=== PATIENT | female | born 1960 | race Caucasian/White ===

== ENCOUNTER 2016-09-20 09:34 | Inpatient (IN) | payer MEDICARE, BC ==
[2016-09-20] VITALS (31 sets, daily range): BP systolic 68–168; BP diastolic 50–94; PULSE 81–121; RESP 12–37; TEMP 98–99.6; O2SAT 95–100
[~2016-09-20 09:34] MED LIST: ALBU8I INH; AMLO10 PO; LEVE500 PO; METO25 PO; MORP30SU PO; OMEP20TA39 PO
[2016-09-20] MEDS ORDERED: ETOMIDATE 20 MG/10 ML VIAL ONE (09:39)
[2016-09-20] MEDS ORDERED: SUCCINYLCHOLINE CHLORIDE 200 MG/10 ML VIAL ONE (09:40)
[2016-09-20] MEDS ORDERED: SODIUM CHLOR 0.9% 1000 ML INJ 1,000 ML IV ONE ×2 (09:48→11:15)
[2016-09-20] MEDS ORDERED: PROPOFOL 1000 MG/100 ML INJ 100 ML ONE (09:51)
--- NOTE | 2016-09-20 09:59 | PD ---
HPI Chief Complaint: Respiratory Symptoms Time Seen by Provider: 09:47 Travel History International Travel<30 days: No Contact w/Intl Traveler<30days: No Traveled to known affect area: No History of Present Illness HPI PER EMS FAMILY CALLED 911 THIS MORNING BECAUSE SHE WOKE UP WITH LEFT SIDED NUMBNESS?, EN ROUTE EMS WITNESSED PATIENT TO HAVE A TOTAL OF 3 TONIC CLONIC SEIZURES, ATIVAN 1MGX2 AND UPON ARRIVAL PATIENT WAS BEING VENT ASSISTED WITH BVM BY EMS, NOT IMPROVING ON HER OWN DESPITE AT LEAST 20MINUTES TIME PASSING BY [facility] Past Medical History Medical History: Unable to Obtain Hx Anticoagulant Therapy: No Cardiovascular Problems: Yes (murmur) Chemotherapy: No Cerebrovascular Accident: Yes Diabetes: No Respiratory: No Influenza Vaccination: No (uto) Past Surgical History Surgical History: Unable to Obtain Hysterectomy: No Other Surgery: Yes (blood clot leg) Social History Alcohol Use: Yes (6 pk beer daily) Tobacco Use: Yes (1 ppd) Substance Use: No (hx of with similar symptoms per evac today 09/20/16) Allergies-Medications (Allergen,Severity, Reaction): Coded Allergies: No Known Allergies (Unverified , 08/11/15) Reported Meds & Prescriptions Reported Meds & Active Scripts Active Reported Morphine ER (Morphine Sulfate) 30 Mg Tab 30 Mg PO Q8H Metoprolol Tartrate 25 Mg Tab 25 Mg PO DAILY Omeprazole 20 Mg Tab 20 Mg PO DAILY Amlodipine (Amlodipine Besylate) 10 Mg Tab 10 Mg PO DAILY Levetiracetam 1,000 Mg Tab 1,000 Mg PO BID Atorvastatin (Atorvastatin Calcium) 20 Mg Tab 20 Mg PO HS Review of Systems ROS Limitations: Clinical Condition Except as stated in HPI: all other systems reviewed are Neg Physical Exam Narrative GENERAL: SKIN: Warm and dry. HEAD: Atraumatic. Normocephalic. EYES: Pupils equal and round. No scleral icterus. No injection or drainage. ENT: No nasal bleeding or discharge. Mucous membranes pink and moist. NECK: Trachea midline. No JVD. CARDIOVASCULAR: Regular rate and rhythm. RESPIRATORY: No accessory muscle use. Clear to auscultation. Breath sounds equal bilaterally. BUT VENT RATE AROUND 6-8/MIN, GASTROINTESTINAL: Abdomen soft, non-tender, nondistended. MUSCULOSKELETAL: Extremities without clubbing, cyanosis, or edema. No obvious deformities. NEUROLOGICAL: PATIENT WAS POSTICTAL AND UNABLE TO FOLLOW COMMANDS, HOWEVER NOTED TO WITHDRAW TO PAIN BILATERALLY UE/LE Data Data Last Documented VS Vital Signs Date Time Temp Pulse Resp B/P Pulse Ox O2 Delivery O2 Flow Rate FiO2 09/20/16 11:07 91 85/57 100 Ventilator 09/20/16 10:56 100 09/20/16 10:52 18 09/20/16 10:00 98.0 Orders Etomidate Inj (Amidate Inj) (09/20/16 09:39) Succinylcholine Inj (Quelicin Inj) (09/20/16 09:40) Propofol 1000 Mg/100 Ml Inj (Diprivan 10 (09/20/16 09:51) Ecg Monitoring (09/20/16 09:48) Iv Access Insert/Monitor (09/20/16 09:48) Ng Gastric Tube Insert/Monitor (09/20/16 09:48) Urinary Catheter Insert/Apply (09/20/16 09:48) Oximetry (09/20/16 09:48) Oxygen Administration (09/20/16 09:48) Etomidate Inj (Amidate Inj) (09/20/16 10:00) Succinylcholine Inj (Quelicin Inj) (09/20/16 10:00) Sodium Chloride 0.9% Flush (Ns Flush) (09/20/16 10:00) Sodium Chlor 0.9% 1000 Ml Inj (Ns 1000 M (09/20/16 09:48) Midazolam Inj (Versed Inj) (09/20/16 10:00) Complete Blood Count With Diff (09/20/16 09:48) Alcohol (Ethanol) (09/20/16 09:48) Drug Screen, Random Urine (09/20/16 09:48) Electrocardiogram (09/20/16 ) Ct Brain W/O Iv Contrast(Rout) (09/20/16 ) Comprehensive Metabolic Panel (09/20/16 09:48) Phenytoin Inj (Dilantin Inj) (09/20/16 10:00) Urinalysis - C+S If Indicated (09/20/16 09:48) Osmolality,Serum (09/20/16 09:48) Salicylates (Aspirin) (09/20/16 09:48) Tylenol (Acetaminophen) (09/20/16 09:48) Chest, Single Ap (09/20/16 09:56) Urine Culture (09/20/16 09:50) Arterial Blood Gas (Abg) (09/20/16 10:18) Levetiracetam (09/20/16 10:44) Atropine Inj (Atropine Inj) (09/20/16 11:00) Sodium Chlor 0.9% 1000 Ml Inj (Ns 1000 M (09/20/16 11:15) Admit Order (Ed Use Only) (09/20/16 11:04) Labs Laboratory Tests Test 09/20/16 09/20/16 09:50 10:18 White Blood Count 13.6 TH/MM3 Red Blood Count 4.68 MIL/MM3 Hemoglobin 14.3 GM/DL Hematocrit 42.4 % Mean Corpuscular Volume 90.6 FL Mean Corpuscular Hemoglobin 30.5 PG Mean Corpuscular Hemoglobin 33.6 % Concent Red Cell Distribution Width 15.1 % Platelet Count 315 TH/MM3 Mean Platelet Volume 7.3 FL Neutrophils (%) (Auto) 56.3 % Lymphocytes (%) (Auto) 34.5 % Monocytes (%) (Auto) 8.1 % Eosinophils (%) (Auto) 0.6 % Basophils (%) (Auto) 0.5 % Neutrophils # (Auto) 7.7 TH/MM3 Lymphocytes # (Auto) 4.7 TH/MM3 Monocytes # (Auto) 1.1 TH/MM3 Eosinophils # (Auto) 0.1 TH/MM3 Basophils # (Auto) 0.1 TH/MM3 CBC Comment DIFF FINAL Differential Comment Urine Color YELLOW Urine Turbidity CLEAR Urine pH 5.5 Urine Specific [place] 1.015 Urine Protein 30 mg/dL Urine Glucose (UA) 300 mg/dL Urine Ketones TRACE mg/dL Urine Occult Blood SMALL Urine Nitrite NEG Urine Bilirubin NEG Urine Urobilinogen LESS THAN 2.0 MG/DL Urine Leukocyte Esterase NEG Urine RBC 1 /hpf Urine WBC LESS THAN 1 /hpf Urine Squamous Epithelial 1 /hpf Cells Urine Bacteria RARE /hpf Microscopic Urinalysis Comment CATH-CULTURE IND Sodium Level 134 MEQ/L Potassium Level 4.1 MEQ/L Chloride Level 98 MEQ/L Carbon Dioxide Level 23.3 MEQ/L Anion Gap 13 MEQ/L Blood Urea Nitrogen 9 MG/DL Creatinine 0.94 MG/DL Estimat Glomerular Filtration 61 ML/MIN Rate Random Glucose 231 MG/DL Serum Osmolality 321 MOSM/KG Calcium Level 8.5 MG/DL Total Bilirubin 0.3 MG/DL Aspartate Amino Transf 38 U/L (AST/SGOT) Alanine Aminotransferase 22 U/L (ALT/SGPT) Alkaline Phosphatase 107 U/L Total Protein 8.2 GM/DL Albumin 4.0 GM/DL Salicylates Level 4.2 MG/DL Urine Opiates Screen POS Acetaminophen Level LESS THAN 2.0 MCG/ML Urine Barbiturates Screen NEG Urine Amphetamines Screen NEG Urine Benzodiazepines Screen NEG Urine Cocaine Screen NEG Urine Cannabinoids Screen POS Ethyl Alcohol Level LESS THAN 3 MG/DL Blood Gas Puncture Site RT BRACHIAL Blood Gas Patient Temperature 98.6 Blood Gas HCO3 24 mmol/L Blood Gas Base Excess -2.2 mmol/L Blood Gas Oxygen Saturation 92 % Arterial Blood pH 7.26 Arterial Blood Partial 55 mmHg Pressure CO2 Arterial Blood Partial 135 mmHG Pressure O2 Arterial Blood Oxygen Content 17.2 Vol % Arterial Blood 5.6 % Carboxyhemoglobin Arterial Blood Methemoglobin 1.0 % Blood Gas Hemoglobin 13.1 G/DL Oxygen Delivery Device VENTILATOR Blood Gas Ventilator Setting AC 14/500/+5 Blood Gas Inspired Oxygen 50 % MDM Medical Decision Making Medical Screen Exam Complete: Yes Emergency Medical Condition: Yes Medical Record Reviewed: Yes Interpretation(s) MY EKG INTERP: SINUS RHYTHM, NONSPEC STT CHANGES, ST DEPRESSIONS NOTED INFERIOLATERALLY MY ABG INTERP: RESPIRATORY ACIDOSIS, POST INTUBATION WILL INCREASE RATE FRROM 12 TO 18 ALTHOUGH IT IS VERY LIKELY DUE TO PRE INTUBATION VENTILATORY FAILURE NOTED CLINICALLY. OXYGENATION IS DOING WELL WILL LOWER PAO2 TO 40% Differential Diagnosis ICH V STATUS EPILEPTICUS V ELECTROLYTE ABNL V INFECTIOUS SOURCE Narrative Course PATIENT NOTED TO BE VENTILATORY FAILURE, SO INTUBATED ON ARRIVAL (PATIENT CLENCHING JAW SO ETOMIDATE AND SUX USED..SEE PROC NOTE) Critical Care Narrative CRITICAL CARE NOTE: With evaluation of the patient, labs, EKG, receipt of radiologic studies, administration of medications, reevaluation the patient and discussion of the patient with the admitting physicians, the total critical care time was [60] minutes. Time to perform other separately billable procedures was not included in the critical care time. Procedures Procedure Narrative After the risks and benefits were discussed the following procedure was performed: INTUBATION: The patient was put in optimal position for the procedure. Rapid sequence intubation was initiated by me using [20] milligrams of etomidate IV and [100] milligrams of [SUCCYNILCHOLINE] IV. The patient was intubated with a [7.5] cuffed endotracheal tube. Tube placement was confirmed by visualization of the tube and balloon passing through the cords, capnometry and subsequent chest x-ray. Breath sounds were equal and well aerated bilaterally postintubation. No breath sounds over stomach. Patient tolerated procedure well. SECURED AT 22 AT THE LIP Diagnosis Primary Impression: ACUTE STATUS EPILEPTICUS Additional Impression: ACUTE VENTILATORY FAILURE S/P INTUBATION Admitting Information Admitting Physician Requests: Admit Eliu Waldrop MD Sep 20, 2016 09:59
[2016-09-20] MEDS ORDERED: SUCCINYLCHOLINE CHLORIDE 200 MG/10 ML VIAL IVP ONE (10:00)
[2016-09-20] MEDS ORDERED: ETOMIDATE 20 MG/10 ML VIAL IVP ONE (10:00)
[2016-09-20] MEDS ORDERED: SODIUM CHLORIDE 0.9% FLUSH 10 ML FLUSH IVF PRN (10:00)
[2016-09-20] MEDS ORDERED: MIDAZOLAM HCL 5 MG/ML VIAL (1 ML) IVP ONE (10:00)
[2016-09-20] MEDS ORDERED: PHENYTOIN INJ 1,000 MG in SODIUM CHLORIDE 0.9% INJ 100 ML IV ONE (10:00)
[2016-09-20 10:14] LABS: AUTOMATED NEUTROPHIL # 7.7 TH/MM3 (1.8-7.7); BASOPHIL # 0.1 TH/MM3 (0-0.2); BASOPHIL % 0.5 % (0.0-2.0); EOSINOPHIL # 0.1 TH/MM3 (0-0.4); EOSINOPHIL % 0.6 % (0.0-4.0); HEMATOCRIT 42.4 % (35.0-46.0); HEMO FLAGS DIFF FINAL; LYMPH % 34.5 % (9.0-44.0); LYMPHOCYTE # 4.7 TH/MM3 (1.0-4.8); MEAN CELL VOLUME 90.6 FL (80.0-100.0); MEAN CORPUSCULAR HEMOGLOBIN 30.5 PG (27.0-34.0); MEAN CORPUSCULAR HGB CONC 33.6 % (32.0-36.0); MONO % 8.1 % (0.0-8.0); NEUT % 56.3 % (16.0-70.0); PLATELET COUNT 315 TH/MM3 (150-450); RED BLOOD COUNT 4.68 MIL/MM3 (4.00-5.30); RED CELL DISTRIBUTION WIDTH 15.1 % (11.6-17.2); WHITE BLOOD COUNT 13.6 TH/MM3 (4.0-11.0)
[2016-09-20 10:19] LABS: BACTERIA, URINE RARE /hpf; BLOOD, URINE SMALL (NEG); COMMENT (UR) CATH-CULTURE IND; CULTURE IF INDICATED CATH CULTURE IND; GLUCOSE,URINE 300 mg/dL (NEG); KETONE, URINE TRACE mg/dL (NEG); NITRITE,URINE NEG (NEG); PH, URINE 5.5 (5.0-8.5); SQUAMOUS EPITHELIAL CELL URINE 1 /hpf (0-5); URINE COLOR YELLOW (YELLW/STRAW)
[2016-09-20 10:24] LABS: AMPHETAMINE, URINE NEG (NEG); BARBITURATES, URINE NEG (NEG); COCAINE, URINE NEG (NEG)
[2016-09-20 10:25] LABS: ALT (GPT) 22 U/L (10-53); ANION GAP 13 MEQ/L (5-15); AST (GOT) 38 U/L (15-37); BICARBONATE 23.3 MEQ/L (21.0-32.0); BLOOD UREA NITROGEN 9 MG/DL (7-18); CHLORIDE 98 MEQ/L (98-107); GLOMERULAR FILTRATION RATE 61 ML/MIN (>89); POTASSIUM 4.1 MEQ/L (3.5-5.1); SODIUM (NA) 134 MEQ/L (136-145)
[2016-09-20 10:26] LABS: BLOOD GAS BASE EXCESS -2.2 mmol/L (-2-2); BLOOD GAS CARBOXYHEMOGLOBIN 5.6 % (0-4); BLOOD GAS HCO3 24 mmol/L (22-26); BLOOD GAS O2 HGB SATURATION 92 % (90-100); BLOOD GAS OXYGEN CONTENT 17.2 Vol % (12.0-20.0); BLOOD GAS PCO2 55 mmHg (38-42); BLOOD GAS PO2 135 mmHG (61-120); BLOOD GAS TOTAL HGB 13.1 G/DL (12.0-16.0); TEMP CORR TO 98.6
--- NOTE | 2016-09-20 10:26 | RADRPT ---
EXAM DATE/TIME: 09/20/2016 10:02 [facility] COMPARISON: CHEST SINGLE AP, July 26, 2015, 6:54. INDICATIONS : Post ET and OG tube placement MEDICAL HISTORY : None. SURGICAL HISTORY : None. ENCOUNTER: Initial ACUITY: 1 day PAIN SCORE: Non-responsive. LOCATION: Bilateral chest FINDINGS: The ET tube and nasogastric tube are in good position. Lungs are clear. The heart and pulmonary vasc ularity are normal. The portion of the bony skeleton visualized is unremarkable. CONCLUSION: Support apparatus in good position. Lungs are clear. Car Moseley MD FACR on September 20, 2016 at 10:24 Board Certified Radiologist. This report was verified electronically.
[2016-09-20 10:27] LABS: CRITICAL VALUE YES; DRAW SITE RT BRACHIAL; FIO2 50 %; NUMBER OF ARTERIAL PUNCTURES 1; OXYGEN DEVICE VENTILATOR; STAT YES; ULNAR PULSE PRESENT; VENT SETTINGS AC 14/500/+5
[2016-09-20 10:27] LABS: ALKALINE PHOSPHATASE 107 U/L (45-117); TOTAL BILIRUBIN ADULT 0.3 MG/DL (0.2-1.0)
[2016-09-20 10:31] LABS: ACETAMINOPHEN LESS THAN 2.0 MCG/ML (10.0-30.0)
--- NOTE | 2016-09-20 10:57 | RADRPT ---
EXAM DATE/TIME: 09/20/2016 10:38 [facility] COMPARISON: MRI BRAIN W & W/O CONTRAST, July 26, 2015, 16:16. CT BRAIN W/O CONTRAST, July 26, 2015, 6:34. INDICATIONS : Multiple sezures today RADIATION DOSE: 56.35 CTDIvol (mGy) MEDICAL HISTORY : Seizures. Substanse abuse SURGICAL HISTORY : None. ENCOUNTER: Initial ACUITY: 1 day PAIN SCALE: Non-responsive LOCATION: cranial TECHNIQUE: Multiple contiguous axial images were obtained of the head. Using automated exposure control and adj ustment of the mA and/or kV according to patient size, radiation dose was kept as low as reasonably a chievable to obtain optimal diagnostic quality images. DICOM format image data is available electro nically for review and comparison. FINDINGS: CEREBRUM: The ventricles are normal for age. No evidence of midline shift, mass lesion, hemorrhage or acute in farction. No extra-axial fluid collections are seen. POSTERIOR FOSSA: The cerebellum and brainstem are intact. The 4th ventricle is midline. The cerebellopontine angle i s unremarkable. EXTRACRANIAL: The visualized portion of the orbits is intact. SKULL: The calvaria is intact. No evidence of skull fracture. CONCLUSION: Negative for an acute process. Car Moseley MD FACR on September 20, 2016 at 10:54 Board Certified Radiologist. This report was verified electronically.
[2016-09-20] MEDS ORDERED: ATROPINE SULFATE 1 MG/ML VIAL IV PUSH ONE (11:00)
[2016-09-20] MEDS ORDERED: OMEP20TA PO (11:37)
[2016-09-20] MEDS ORDERED: MORP1TAB25 PO (11:37)
[2016-09-20] MEDS ORDERED: ATOR20TA15 PO (11:37)
[2016-09-20] MEDS ORDERED: LEVE10003 PO (11:37)
[2016-09-20] MEDS ORDERED: METO25TA3 PO (11:37)
[2016-09-20] MEDS ORDERED: AMLO10TA2 PO (11:37)
[2016-09-20] MEDS ORDERED: BISACODYL 10 MG SUPP RECTAL PRN (12:15)
[2016-09-20] MEDS ORDERED: CHLORHEXIDINE GLUCONATE 2 % 1 PACK (2 CLOTHS) TOP PRN (12:15)
[2016-09-20] MEDS ORDERED: LACTULOSE SYRUP 20 GM/30 ML CUP PO PRN (12:15)
[2016-09-20] MEDS ORDERED: RESP: ALBUTEROL 2.5 MG/IPRATROPIUM 0.5 MG NEB (PRN) INH (12:15)
[2016-09-20] MEDS ORDERED: ONDANSETRON HCL 4 MG/2 ML VIAL IV PRN (12:15)
[2016-09-20] MEDS ORDERED: MAGNESIUM HYDROXIDE SUSP 30 ML CUP PO PRN (12:15)
[2016-09-20] MEDS ORDERED: MISCELLANEOUS NURSING INFORMATION XX SCH (12:15)
[2016-09-20] MEDS ORDERED: SENNOSIDES 8.6 MG TAB PO PRN (12:15)
[2016-09-20] MEDS ORDERED: CHLORHEXIDINE GLUCONATE 2 % 1 PACK (2 CLOTHS)(extra cloths) TOPICAL PRN (12:45)
[2016-09-20] MEDS: ARTIFICIAL TEARS OPTH SOLN 15 ML BTL EACH EYE SCH ×2 (13:00→18:00)
[2016-09-20] MEDS ORDERED: hydrALAZINE HCL 20 MG/ML VIAL IV PUSH PRN (13:15)
[2016-09-20] MEDS ORDERED: LORazepam 2 MG/ML VIAL ONE (13:35)
[2016-09-20 13:37] LABS: BLOOD GAS CARBOXYHEMOGLOBIN 2.8 % (0-4); BLOOD GAS HCO3 23 mmol/L (22-26); BLOOD GAS METHEMOGLOBIN 1.5 % (0-2); BLOOD GAS O2 HGB SATURATION 94 % (90-100); BLOOD GAS OXYGEN CONTENT 16.8 Vol % (12.0-20.0); BLOOD GAS PCO2 37 mmHg (38-42); BLOOD GAS PO2 101 mmHg (61-120); BLOOD GAS TOTAL HGB 12.7 G/DL (12.0-16.0); CRITICAL VALUE NO; DRAW SITE LT RADIAL; FIO2 40 %; NUMBER OF ARTERIAL PUNCTURES 1; OXYGEN DEVICE VENTILATOR; STAT NO; TEMP CORR TO 98.6; ULNAR PULSE PRESENT; VENT SETTINGS 500/AC14/PEEP5
[2016-09-20] MEDS: PROPOFOL 1000 MG/100 ML INJ 100 ML IV SCH ×2 (14:30→20:03)
[2016-09-20] MEDS: THIAMINE INJ 100 MG in SODIUM CHLORIDE 0.9% INJ 100 ML IV SCH (14:31)
[2016-09-20] MEDS: MULTIVITAMIN INJ 10 ML, FOLIC ACID INJ 1 MG in SODIUM CHLORID 0.9% 500 ML INJ 500 ML IV SCH (14:31)
[2016-09-20] MEDS: SODIUM CHLOR 0.9% 1000 ML INJ 1,000 ML IV SCH ×2 (14:34→20:41)
--- NOTE | 2016-09-20 14:49 | HHI.HP ---
HPI Service Critical Care Medicine Primary Care Physician Unknown Admission Diagnosis STATUS EPILEPTICUS, VENTILATORY FAILURE S/P INTUBATION Diagnosis: Travel History International Travel<30 Days: No Contact w/Intl Traveler <30 Da: No Traveled to Known Affected Are: No History of Present Illness This is a 56-year-old female that presented to the ED in respiratory distress. Per ED report the patient was noted to have left-sided left hemiplegia, last witnessed movement at 12 midnight per report. EMS was called, enroute the patient subsequently had 3 witnessed tonic-clonic seizures and received Ativan 2 mg. Upon arrival to ED, the patient was intubated for airway protection. No further seizure activity was noted, the patient was placed on a propofol infusion. Imaging studies were performed CT was negative, urine tox screen was noted to have cannabis and positive for urine opiates(the patient was on morphine ER at home). Patient's medical history is significant for PRES syndrome, and the patient was recently admitted to the hospital 07/26/15. At that time the patient's MRI revealed restricted diffusion in the right posterior parietal lobe and cerebral edema. The patient was notably hyponatremic at that time and presents today with a sodium level 134. Critical care medicine is consulted for management. History PFSH Past Medical History Medical History: Unable to Obtain Hx Anticoagulant Therapy: No Cardiovascular Problems: Yes (murmur) Chemotherapy: No Cerebrovascular Accident: Yes Diabetes: No Respiratory: No Influenza Vaccination: No (uto) Past Surgical History Surgical History: Unable to Obtain Hysterectomy: No Other Surgery: Yes (blood clot leg) Social History Alcohol Use: Yes (6 pk beer daily) Tobacco Use: Yes (1 ppd) Substance Use: No (hx of with similar symptoms per evac today 09/20/16) Allergies-Medications Allergies-Medications (Allergen,Severity, Reaction): Coded Allergies: No Known Allergies (Unverified , 08/11/15) Reported Meds & Prescriptions Reported Meds & Active Scripts Active Reported Morphine ER (Morphine Sulfate) 30 Mg Tab 30 Mg PO Q8H Metoprolol Tartrate 25 Mg Tab 25 Mg PO DAILY Omeprazole 20 Mg Tab 20 Mg PO DAILY Amlodipine (Amlodipine Besylate) 10 Mg Tab 10 Mg PO DAILY Levetiracetam 1,000 Mg Tab 1,000 Mg PO BID Atorvastatin (Atorvastatin Calcium) 20 Mg Tab 20 Mg PO HS Review of Systems ROS Limitations: Clinical Condition, Intubated Past Family Social History Allergies: Coded Allergies: No Known Allergies (Unverified , 08/11/15) Physical Exam Vital Signs Vital Signs Date Time Temp Pulse Resp B/P Pulse Ox O2 Delivery O2 Flow Rate FiO2 09/20/16 12:03 100 40 09/20/16 11:25 95 116/78 09/20/16 11:18 103 114/77 09/20/16 11:16 98 40 09/20/16 11:11 95 98/71 09/20/16 11:07 91 85/57 100 Ventilator 09/20/16 11:05 89 68/50 97 Ventilator 09/20/16 10:56 100 100 09/20/16 10:52 87 18 109/79 100 Ventilator 09/20/16 10:29 100/74 09/20/16 10:21 100 21 109/79 99 Ventilator 09/20/16 10:00 98.0 09/20/16 09:54 97 50 09/20/16 09:45 50 09/20/16 09:38 121 168/94 97 Physical Exam GENERAL: Well-developed well-nourished female intubated and sedated SKIN: Warm and dry. HEAD: Atraumatic. Normocephalic. EYES: Pupils equal and round. No scleral icterus. No injection or drainage. ENT: No nasal bleeding or discharge. Mucous membranes pink and moist. NECK: Trachea midline. No JVD. CARDIOVASCULAR: Normal rate, regular rhythm. RESPIRATORY: No accessory muscle use. Clear to auscultation. Breath sounds equal bilaterally. GASTROINTESTINAL: Abdomen soft, non-tender, nondistended. No guarding. MUSCULOSKELETAL: Extremities without clubbing, cyanosis, or edema. No obvious deformities. NEUROLOGICAL: GCS 3T. Intubated and sedated Laboratory Laboratory Tests Test 09/20/16 09/20/16 09/20/16 09:50 10:18 13:32 White Blood Count 13.6 Red Blood Count 4.68 Hemoglobin 14.3 Hematocrit 42.4 Mean Corpuscular Volume 90.6 Mean Corpuscular Hemoglobin 30.5 Mean Corpuscular Hemoglobin 33.6 Concent Red Cell Distribution Width 15.1 Platelet Count 315 Mean Platelet Volume 7.3 Neutrophils (%) (Auto) 56.3 Lymphocytes (%) (Auto) 34.5 Monocytes (%) (Auto) 8.1 Eosinophils (%) (Auto) 0.6 Basophils (%) (Auto) 0.5 Neutrophils # (Auto) 7.7 Lymphocytes # (Auto) 4.7 Monocytes # (Auto) 1.1 Eosinophils # (Auto) 0.1 Basophils # (Auto) 0.1 CBC Comment DIFF FINAL Differential Comment Urine Color YELLOW Urine Turbidity CLEAR Urine pH 5.5 Urine Specific [place] 1.015 Urine Protein 30 Urine Glucose (UA) 300 Urine Ketones TRACE Urine Occult Blood SMALL Urine Nitrite NEG Urine Bilirubin NEG Urine Urobilinogen LESS THAN 2.0 Urine Leukocyte Esterase NEG Urine RBC 1 Urine WBC LESS THAN 1 Urine Squamous Epithelial 1 Cells Urine Bacteria RARE Microscopic Urinalysis Comment CATH-CULTURE IND Sodium Level 134 Potassium Level 4.1 Chloride Level 98 Carbon Dioxide Level 23.3 Anion Gap 13 Blood Urea Nitrogen 9 Creatinine 0.94 Estimat Glomerular Filtration 61 Rate Random Glucose 231 Serum Osmolality 321 Calcium Level 8.5 Total Bilirubin 0.3 Aspartate Amino Transf 38 (AST/SGOT) Alanine Aminotransferase 22 (ALT/SGPT) Alkaline Phosphatase 107 Total Protein 8.2 Albumin 4.0 Salicylates Level 4.2 Urine Opiates Screen POS Acetaminophen Level LESS THAN 2.0 Urine Barbiturates Screen NEG Urine Amphetamines Screen NEG Urine Benzodiazepines Screen NEG Urine Cocaine Screen NEG Urine Cannabinoids Screen POS Ethyl Alcohol Level LESS THAN 3 Blood Gas Puncture Site RT BRACHIAL LT RADIAL Blood Gas Patient Temperature 98.6 98.6 Blood Gas HCO3 24 23 Blood Gas Base Excess -2.2 -1.0 Blood Gas Oxygen Saturation 92 94 Arterial Blood pH 7.26 7.41 Arterial Blood Partial 55 37 Pressure CO2 Arterial Blood Partial 135 101 Pressure O2 Arterial Blood Oxygen Content 17.2 16.8 Arterial Blood 5.6 2.8 Carboxyhemoglobin Arterial Blood Methemoglobin 1.0 1.5 Blood Gas Hemoglobin 13.1 12.7 Oxygen Delivery Device VENTILATOR VENTILATOR Blood Gas Ventilator Setting AC 14/500/+5 500/AC14/PEEP5 Blood Gas Inspired Oxygen 50 40 Date/Time Procedure Status Source Growth 09/20/16 09:50 Urine Culture Received Urine Catheterized Urine Pending Result Diagram: 09/20/16 0950 09/20/16 0950 Imaging Last Impressions Chest X-Ray 09/20/16 0956 Signed Impressions: Service Date/Time: Tuesday, September 20, 2016 10:02 - CONCLUSION: Support apparatus in good position. Lungs are clear. Car Moseley MD FACR Head CT 09/20/16 0000 Signed Impressions: Service Date/Time: Tuesday, September 20, 2016 10:38 - CONCLUSION: Negative for an acute process. Car Moseley MD FACR Septic Shock Reassessment Heart: Regular rate and rhythm Lungs: Clear Skin: Warm, [place] Peripheral Pulses: Bounding Right Radial Bounding Left Radial Bounding Left Popliteal Bounding Left Dorsalis Pedis Capillary Refill: Brisk Assessment and Plan Assessment and Plan Plan by systems: Neurologic: Toxic/metabolic encephalopathy Seizure disorder EtOH abuse PRES Syndrome Left Hemiplegia? -Obtain stat MRI -Neurology consult-on previous admission patient seen by Dr. Hatch -Patient loaded with Dilantin in ED -Obtain Keppra level(home medications include 1 g twice a day) -Resume Keppra 1 g twice a day -History of consumption of alcohol reportedly one 6 pack of beer/day-seizure precautions -Obtain [id number] results -MVI, thiamine and folate infusion 5 days then convert to by mouth -Propofol infusion for ventilator synchrony -Sedation vacation -Obtain ammonia level -Neurochecks per ICU protocol Respiratory: Acute respiratory failure -Ventilator bundle -Maintain O2 sat greater than 92% -DuoNeb nebs every 6 hours scheduled and every 2 hours when necessary -Obtain ABG -Chest x-ray and ABG daily Cardiovascular: Hypertension Hyperlipidemia -Maintain MAP greater than 65 mmHg -Continue home medications metoprolol 25 mg/day, amlodipine 10 mg/day -Continue Atorvastatin Renal: Insert Ash -- Strict I/Os FEN/GI: Hyponatremia, chronic? -Admission sodium level 134, monitor BMP -Normal saline 84 cc/hour -Maintain NPO status for now -Zofran for nausea -Protonix for GI prophylaxis Heme/ID: Leukocytosis -Patient currently afebrile -Continue to closely monitor CBC -Will obtain cultures if clinically indicated Endocrine: Hyperglycemia of critical illness Glucose monitoring per ICU protocol Obtain TSH level -- SSI Prophylaxis: GI Prophylaxis Protonix DVT Prophylaxis -- SCDs Will hold heparin subcutaneous pending MRI Lines: Peripheral IVs 2. Central line if indicated Dispo: This patient remains critically ill with one or more organ systems which are or may become a threat to life. I have spent in excess of 47 minutes discontinuously in the care and management of this patient. This time is exclusive of procedures, and includes, but is not limited to, evaluation of the patient, review of the medical record, discussions with family, consultants, nursing staff, or respiratory therapy, and documentation in the medical record. Code Status Full Discussed Condition With Discussed with MENHADEN VESSEL PILOT at bedside. Meri Lo MD Sep 20, 2016 14:49
--- NOTE | 2016-09-20 14:52 | RADRPT ---
EXAM DATE/TIME: 09/20/2016 13:58 [facility] COMPARISON: MRI BRAIN W & W/O CONTRAST, July 26, 2015, 16:16. MRI BRAIN W/O CONTRAST, July 31, 2015, 12:32. INDICATIONS : Seizures. MEDICAL HISTORY : None. SURGICAL HISTORY : None. ENCOUNTER: Initial ACUITY: 1 day PAIN SCORE: 0/10 LOCATION: Cranial TECHNIQUE: Multiplanar, multisequence MRI of the brain was performed without contrast. FINDINGS: The diffusion-weighted images demonstrate no focal signal abnormality to suggest acute infarct. The ventricles, sulci and cisterns are normal in size, shape and position for the patient's age. There i s no acute hemorrhage, midline shift or extra-axial fluid collections. The sagittal images demonstra te normal midline structures including the corpus callosum, pituitary gland and craniocervical juncti on. Fluid is noted within the left mastoid air cells raising the possibility of left-sided mastoidit is. CONCLUSION: 1. No acute intracranial abnormality. 2. Fluid within the left mastoid air cells raising the possibility of left-sided mastoiditis. Clini idalmis correlation is recommended. Roger Zamora MD on September 20, 2016 at 14:30 Board Certified Radiologist. This report was verified electronically.
[2016-09-20] MEDS ORDERED: LORazepam 2 MG/ML VIAL IV ONE (15:00)
[2016-09-20] MEDS ORDERED: DEXTROSE 50% IN WATER 50 ML VIAL(D50) IV PRN ×2 (15:00→16:15)
[2016-09-20] MEDS ORDERED: GLUCAGON 1 MG/ML VIAL OTHER PRN ×2 (15:00→16:15)
[2016-09-20] MEDS: RESP: ALBUTEROL 2.5 MG/IPRATROPIUM 0.5 MG NEB (SCH) INH ×2 (15:46→19:48)
--- NOTE | 2016-09-20 19:28 | EKG ---
Date Performed: 09/20/2016 Time Performed: 09:49:44 PTAGE: 56 years EKG: SINUS TACHYCARDIA DIFFUSE NONSPECIFIC ST-T CHANGES WITH ST DEPRESSION INFERIORLY AND MAIK LATERALLY ABNORMAL RHYTHM ECG Compared to PREVIOUS TRACING , the heart rate has increased and the ST-T changes are new. Clinical co rrelation is recommended. PREVIOUS TRACIN07/29/2015 10.03 DOCTOR: Cesar Quevedo Interpretating Date/Time 09/20/2016 19:28:07
[2016-09-20 19:49] LABS: INTERNATIONAL NORMALIZED RATIO 0.9 RATIO; PROTHROMBIN TIME - PATIENT 10.1 SEC (9.8-11.6)
[2016-09-20] MEDS: SODIUM CHLORIDE 0.9% FLUSH 10 ML FLUSH IV FLUSH SCH (20:03)
[2016-09-20] MEDS: levETIRAcetam 1000 MG INJ 100 ML IV SCH (20:03)
[2016-09-20] MEDS: ATORVASTATIN 20 MG TAB PO SCH (20:03)
[2016-09-20] MEDS: FAMOTIDINE 20 MG/2 ML VIAL IV PUSH SCH (20:03)
[2016-09-20] MEDS: DOCUSATE SODIUM 50 MG/SENNA 8.6 MG TAB PO SCH (20:03)
[2016-09-20] MEDS: CHLORHEXIDINE 0.12% (ORAL KIT) 15 ML CUP MT SCH (20:04)
[2016-09-20] MEDS: fentaNYL DRIP 250 ML IV SCH (20:04)
[2016-09-20 20:12] LABS: FREE T4 0.96 NG/DL (0.76-1.46); INDIRECT BILIRUBIN 0.3 MG/DL (0.0-0.8); TOTAL BILIRUBIN ADULT 0.5 MG/DL (0.2-1.0)
[2016-09-20] MEDS ORDERED: DEXMEDETOMIDINE HCL 200 MCG/2 ML VIAL ONE (20:13)
[2016-09-20] MEDS: INSULIN ASPART SUPPLEMENTAL SCALE SQ SCH (20:35)
[2016-09-20] MEDS ORDERED: DEXMEDETOMIDINE 200 MCG in NS 50 ML IV SCH (20:45)
[2016-09-20] MEDS: DEXMEDETOMIDINE INJ 1,000 MCG in SODIUM CHLOR 0.9% 250 ML INJ 240 ML IV SCH (22:49)
[2016-09-21] VITALS (37 sets, daily range): BP systolic 82–118; BP diastolic 56–77; PULSE 83–103; RESP 18–60; TEMP 98.8–99.4; O2SAT 94–100
[2016-09-21] MEDS: PROPOFOL 1000 MG/100 ML INJ 100 ML IV SCH ×4 (02:22→18:31)
[2016-09-21] MEDS: CHLORHEXIDINE GLUCONATE 2 % 1 PACK (2 CLOTHS) TOP SCH (02:22)
[2016-09-21] MEDS: RESP: ALBUTEROL 2.5 MG/IPRATROPIUM 0.5 MG NEB (SCH) INH ×4 (03:17→20:47)
[2016-09-21] MEDS ORDERED: CHLORHEXIDINE GLUCONATE 2 % 1 PACK (2 CLOTHS)(taper/protocol) TOPICAL SCH (04:00)
[2016-09-21] MEDS: fentaNYL DRIP 250 ML IV SCH ×3 (04:40→23:56)
[2016-09-21] MEDS: SODIUM CHLOR 0.9% 1000 ML INJ 1,000 ML IV SCH ×2 (04:40→20:20)
[2016-09-21] MEDS: INSULIN ASPART SUPPLEMENTAL SCALE SQ SCH ×4 (07:00→20:37)
[2016-09-21] MEDS: DEXMEDETOMIDINE INJ 1,000 MCG in SODIUM CHLOR 0.9% 250 ML INJ 240 ML IV SCH ×2 (08:00→23:11)
[2016-09-21] MEDS: CHLORHEXIDINE 0.12% (ORAL KIT) 15 ML CUP MT SCH ×2 (08:01→20:18)
[2016-09-21] MEDS: SODIUM CHLORIDE 0.9% FLUSH 10 ML FLUSH IV FLUSH SCH ×2 (08:02→20:19)
[2016-09-21] MEDS: levETIRAcetam 1000 MG INJ 100 ML IV SCH ×2 (08:02→20:19)
[2016-09-21] MEDS: ARTIFICIAL TEARS OPTH SOLN 15 ML BTL EACH EYE SCH ×3 (08:02→17:08)
[2016-09-21] MEDS: DOCUSATE SODIUM 50 MG/SENNA 8.6 MG TAB PO SCH ×2 (08:03→20:19)
[2016-09-21] MEDS: FAMOTIDINE 20 MG/2 ML VIAL IV PUSH SCH ×2 (08:03→20:19)
[2016-09-21] MEDS: METOPROLOL TARTRATE 25 MG TAB PO SCH (08:04)
--- NOTE | 2016-09-21 09:09 | MG ---
cc: ALEX LINDA MD Sex: F DATE OF STUDY: 09/20/2016 [id number] DATE OF : 1960 HISTORY: A 56-year-old female with a history of seizures, intubated, sedated. DESCRIPTION: Increased beta frequencies occurring throughout the recording, 10-40 microvolts combination of alpha, beta and theta frequencies. Good EEG variability reactivity. ___ looking waveforms, versus sharply contoured theta, right hemisphere, epoch 74. Small sharp wave in a generalized fashion in epoch 105. Limited driving with photic stimulation. Some eye movement myogenic artifact towards the end of the recording. Single lead EKG with excessive artifact. INTERPRETATION Mild nonspecific changes noted above. No active seizures. Good EEG variability reactivity with excessive beta frequencies which may be related to anesthetic effect. Clinical correlation. Alex Linda MD MG/MADHAVI /8:11 AM /9:00 AM
[2016-09-21] MEDS ORDERED: FLUMAZENIL 0.5 MG/5 ML VIAL IV PUSH PRN (12:45)
[2016-09-21] MEDS ORDERED: LORazepam 1 MG TAB PO PRN (12:45)
[2016-09-21] MEDS ORDERED: LORazepam 2 MG TAB PO PRN (12:45)
[2016-09-21] MEDS: THIAMINE INJ 100 MG in SODIUM CHLORIDE 0.9% INJ 100 ML IV SCH (13:41)
[2016-09-21] MEDS: LORazepam 2 MG/ML VIAL IV PUSH PRN ×2 (14:01→21:42)
[2016-09-21] MEDS: MULTIVITAMIN INJ 10 ML, FOLIC ACID INJ 1 MG in SODIUM CHLORID 0.9% 500 ML INJ 500 ML IV SCH (14:27)
--- NOTE | 2016-09-21 14:31 | PD.CONS ---
History of Present Illness Service Neurology Consult Requested By [facility] Reason for Consult sz Primary Care Physician Unknown History of Present Illness 56-year-old female that presented to the ED in respiratory distress. Per ED report the patient was noted to have left-sided left hemiplegia, last witnessed movement at 12 midnight per report. EMS was called, enroute the patient subsequently had 3 witnessed tonic-clonic seizures and received Ativan 2 mg. Upon arrival to ED, the patient was intubated for airway protection. No further seizure activity was noted, the patient was placed on a propofol infusion. pt unable to give any hx. 168/94 ct brain naicp. has been hypotensive since then. mri brain essentially normal. no acute infarct. 07/2016 seen by neuro. thought to have pres and placed on keppra with bp control. hx of chronic pain syndrome, apparently on morphine tid. UDS + for MJ and opiods History PFSH Past Medical History Medical History: Unable to Obtain Hx Anticoagulant Therapy: No Cardiovascular Problems: Yes (murmur) Chemotherapy: No Cerebrovascular Accident: Yes Diabetes: No Respiratory: No Influenza Vaccination: No (uto) Past Surgical History Surgical History: Unable to Obtain Hysterectomy: No Other Surgery: Yes (blood clot leg) Social History Alcohol Use: Yes (6 pk beer daily) Tobacco Use: Yes (1 ppd) Substance Use: No (hx of with similar symptoms per evac today 09/20/16) Allergies-Medications Allergies-Medications (Allergen,Severity, Reaction): Coded Allergies: No Known Allergies (Unverified , 08/11/15) Reported Meds & Prescriptions Reported Meds & Active Scripts Review of Systems ROS Limitations: Clinical Condition, Intubated Review of Systems All other ROS: ROS reviewed as documented in chart Past Family Social History Allergies: Coded Allergies: No Known Allergies (Unverified , 08/11/15) Active Ordered Medications Current Medications Medications (Trade) Dose Ordered Sig/Sonja Route Start Time Stop Time Status Last Admin Sodium Chloride 2 ml 2 ml UNSCH PRN IVF 09/20/16 10:00 (NS 1000 ml Inj) 1,000 ml @ 84 mls/hr [id number] IV 09/20/16 13:00 09/21/16 04:40 (NS Flush) 2 ml BID IV FLUSH 09/20/16 21:00 09/21/16 08:02 (Tylenol) 650 mg Q6H PRN PO 09/20/16 12:15 (Pepcid Inj) 20 mg Q12HR IV PUSH 09/20/16 21:00 09/21/16 08:03 (Tears Naturale Opth Soln) 1 drop TID EACH EYE 09/20/16 13:00 09/21/16 13:00 (Zofran Inj) 4 mg Q6H PRN IV 09/20/16 12:15 Miscellaneous Information 1 Q361D XX 09/20/16 12:15 09/20/16 12:15 (Chlorhexidine 2% Cloth) 3 pack Taper DAILY@04 TOP 09/21/16 04:00 09/17/17 03:59 09/21/16 02:22 (Eileen-Colace) 1 tab BID PO 09/20/16 21:00 09/21/16 08:03 (Milk Of Magnalicia Liq) 30 ml Q12H PRN PO 09/20/16 12:15 (Senokot) 17.2 mg Q12H PRN PO 09/20/16 12:15 (Dulcolax Supp) 10 mg DAILY PRN RECTAL 09/20/16 12:15 Lactulose 30 ml 30 ml DAILY PRN PO 09/20/16 12:15 (Diprivan 1000 Mg/100ml Inj) 100 ml @ 0 mls/hr TITRATE IV 09/20/16 12:15 09/21/16 13:41 Chlorhexidine Gluconate 15 ml 15 ml BID@08,20 MT 09/20/16 20:00 09/21/16 08:01 (Keppra 1000 Mg Inj) 100 ml @ 400 mls/hr Q12HR IV 09/20/16 21:00 09/21/16 08:02 (Norvasc) 10 mg DAILY PO 09/21/16 09:00 09/21/16 08:03 (Lipitor) 20 mg HS PO 09/20/16 21:00 09/20/16 20:03 (Lopressor) 25 mg DAILY PO 09/21/16 09:00 09/21/16 08:04 Hydralazine HCl 20 mg 20 mg Q4H PRN IV PUSH 09/20/16 13:15 Multivitamins 10 ml/Folic Acid 1 mg/Sodium Chloride 510.2 ml @ 125 mls/hr Q24H IV 09/20/16 14:00 09/25/16 13:59 09/20/16 14:31 (Thiamine Inj/NS Inj) 101 ml @ 100 mls/hr Q24H IV 09/20/16 14:00 09/23/16 13:59 09/21/16 13:41 (D50w (Vial) Inj) 50 ml UNSCH PRN IV 09/20/16 16:15 Glucagon 1 mg 1 mg UNSCH PRN OTHER 09/20/16 16:15 Fentanyl Citrate 250 ml @ 0 mls/hr TITRATE IV 09/20/16 19:45 09/21/16 13:41 (Precedex Inj/NS 250 ml Inj) 250 ml @ 0 mls/hr TITRATE IV 09/20/16 21:30 09/21/16 08:00 (Ativan Inj) 2 mg Q2H PRN IV PUSH 09/21/16 12:45 09/21/16 14:01 (Romazicon Inj) 0.2 mg Q1M PRN IV PUSH 09/21/16 12:45 (Ativan) 1 mg Q4H PRN PO 09/21/16 12:45 (Ativan Inj) 1 mg Q4H PRN IV PUSH 09/21/16 12:45 (Ativan) 2 mg Q2H PRN PO 09/21/16 12:45 (Ativan Inj) 2 mg Q2H PRN IV PUSH 09/21/16 12:45 (Ativan Inj) 2 mg Q1H PRN IV PUSH 09/21/16 12:45 (Ativan Inj) 2 mg Q15M PRN IV PUSH 09/21/16 12:45 (Librium) 20 mg Q12HR PO 09/21/16 13:00 09/21/16 13:00 Exam I&O / VS 09/20/16 09/20/16 09/21/16 15:00 23:00 07:00 Intake Total 1392 ml 1115 ml Output Total 200 ml 700 ml 1300 ml Balance -200 ml 692 ml -185 ml Intake IV Total 1392 ml 1115 ml Output Urine Total 700 ml 1300 ml Gastric Drainage Total 200 ml Vital Signs Date Time Temp Pulse Resp B/P Pulse Ox O2 Delivery O2 Flow Rate FiO2 09/21/16 11:25 95 40 09/21/16 10:00 84 09/21/16 09:30 89 18 91/64 98 09/21/16 09:00 91 18 91/63 99 09/21/16 08:30 93 18 95/63 98 09/21/16 08:00 40 09/21/16 08:00 86 09/21/16 08:00 99.4 91 18 89/59 98 09/21/16 07:30 87 18 96/68 99 09/21/16 07:19 100 40 09/21/16 07:00 87 18 98/67 98 09/21/16 06:30 88 18 95/65 98 09/21/16 06:00 89 09/21/16 06:00 89 18 94/64 98 09/21/16 05:30 90 18 95/64 98 09/21/16 05:03 97 40 09/21/16 05:00 92 18 90/63 97 09/21/16 04:00 94 09/21/16 04:00 99.0 94 18 99/67 96 09/21/16 04:00 40 09/21/16 02:00 91 09/21/16 01:27 98 40 09/21/16 00:00 40 09/21/16 00:00 90 09/21/16 00:00 99.2 90 18 114/71 98 09/20/16 22:00 85 09/20/16 20:00 99.2 97 37 104/64 09/20/16 20:00 97 09/20/16 20:00 40 09/20/16 19:52 95 40 09/20/16 18:00 87 09/20/16 18:00 40 09/20/16 16:00 95 09/20/16 16:00 99.6 84 18 105/72 99 09/20/16 15:49 99 40 09/20/16 15:30 84 18 97 09/20/16 15:00 85 18 95/65 100 09/20/16 14:30 87 18 100 09/20/16 14:24 87 19 111/71 Exam Comments alerts, follows with all 4 ext, intubated, unable to speak, eomi, ou 3-2mm, moves distal ext, in restraints Review/Management Diagnosis/Plan: (1) Seizure Plan: ? etiology ? med induced vs withdrawal? vs etoh withdrawal on chronic opiods eeg- no active sz's recs fu keppra level iv keppra extubation per ccm no driving/climbing heights/swimming alone or operating any dangerous machinery d/w rn (2) Encephalopathy acute Plan: improved mri brain nml (3) Chronic pain Problem Qualifiers (1) Chronic pain: Qualified Code: G89.4 - Chronic pain syndrome Bennett Samuel MD Sep 21, 2016 14:31
--- NOTE | 2016-09-21 15:59 | HHI.CCPN ---
Subjective Remarks/Hospital Course 09/20: This is a 56-year-old female that presented to the ED in respiratory distress. Per ED report the patient was noted to have left-sided left hemiplegia, last witnessed movement at 12 midnight per report. EMS was called, enroute the patient subsequently had 3 witnessed tonic-clonic seizures and received Ativan 2 mg. Upon arrival to ED, the patient was intubated for airway protection. No further seizure activity was noted, the patient was placed on a propofol infusion. Imaging studies were performed CT was negative, urine tox screen was noted to have cannabis and positive for urine opiates(the patient was on morphine ER at home). Patient's medical history is significant for PRES syndrome, and the patient was recently admitted to the hospital 07/26/15. At that time the patient's MRI revealed restricted diffusion in the right posterior parietal lobe and cerebral edema. The patient was notably hyponatremic at that time and presents today with a sodium level 134. Critical care medicine is consulted for management. 09/21: Remains sedated, orally intubated on mechanical ventilation. On propofol/ fentanyl and Precedex and still wakes up and gets agitated. Objective Vital Signs Date Time Temp Pulse Resp B/P Pulse Ox O2 Delivery O2 Flow Rate FiO2 09/21/16 11:25 95 40 09/21/16 10:00 84 09/21/16 09:30 18 91/64 09/21/16 08:00 99.4 09/20/16 11:07 Ventilator Intake and Output 09/20/16 09/20/16 09/21/16 08:00 16:00 00:00 Intake Total 1392 ml Output Total 200 ml 700 ml Balance -200 ml 692 ml Result Diagram: 09/20/16 0950 09/20/16 0950 Imaging Last Impressions Chest X-Ray 09/20/16 0956 Signed Impressions: Service Date/Time: Tuesday, September 20, 2016 10:02 - CONCLUSION: Support apparatus in good position. Lungs are clear. Car Moseley MD FACR Head CT 09/20/16 0000 Signed Impressions: Service Date/Time: Tuesday, September 20, 2016 10:38 - CONCLUSION: Negative for an acute process. Car Moseley MD FACR Objective Remarks GENERAL: Well-developed well-nourished female intubated and sedated SKIN: Warm and dry. HEAD: Atraumatic. Normocephalic. EYES: Pupils equal and round. No scleral icterus. No injection or drainage. ENT: No nasal bleeding or discharge. Mucous membranes pink and moist. NECK: Trachea midline. No JVD. CARDIOVASCULAR: Normal rate, regular rhythm. RESPIRATORY: No accessory muscle use. Clear to auscultation. Breath sounds equal bilaterally. GASTROINTESTINAL: Abdomen soft, non-tender, nondistended. No guarding. MUSCULOSKELETAL: Extremities without clubbing, cyanosis, or edema. No obvious deformities. NEUROLOGICAL: Sedated, orally intubated on mechanical ventilation. Opens eyes and moves all 4 extremities A/P Assessment and Plan Plan by systems: Neurologic: Toxic/metabolic encephalopathy Seizure disorder EtOH abuse PRES Syndrome Left Hemiplegia? -Neurology consult-on previous admission patient seen by Dr. Hatch -Patient loaded with Dilantin in ED -Obtain Keppra level(home medications include 1 g twice a day) -Resume Keppra 1 g twice a day -History of consumption of alcohol reportedly one 6 pack of beer/day-seizure precautions -Obtain [id number]-bj results -MVI, thiamine and folate infusion 5 days then convert to by mouth Starting CIWA protocol for alcohol withdrawal with Ativan when necessary. Added librium 20mg via OGT Q8hrly -Propofol infusion for ventilator synchrony -Sedation vacation -Obtain ammonia level -Neurochecks per ICU protocol Respiratory: Acute respiratory failure -Ventilator bundle -Maintain O2 sat greater than 92% -DuoNeb nebs every 6 hours scheduled and every 2 hours when necessary - Daily CPAP trials. Cardiovascular: Hypertension Hyperlipidemia -Maintain MAP greater than 65 mmHg -Continue home medications metoprolol 25 mg/day, amlodipine 10 mg/day -Continue Atorvastatin Renal: Insert Ash -- Strict I/Os FEN/GI: Hyponatremia, chronic? -Admission sodium level 134, monitor BMP -Normal saline 84 cc/hour -Start tube feeds and advanced to goal as tolerated. -Zofran for nausea -Protonix for GI prophylaxis Heme/ID: Leukocytosis -Blood culture with strep. Start Levaquin on 09/21. We'll repeat blood cultures on 09/22 to f/u for clearance. Endocrine: Hyperglycemia of critical illness Glucose monitoring per ICU protocol Obtain TSH level -- SSI Prophylaxis: GI Prophylaxis Protonix DVT Prophylaxis -- SCDs Will hold heparin subcutaneous pending MRI Lines: Peripheral IVs 2. Central line if indicated Dispo: This patient remains critically ill with one or more organ systems which are or may become a threat to life. I have spent in excess of 40 minutes discontinuously in the care and management of this patient. This time is exclusive of procedures, and includes, but is not limited to, evaluation of the patient, review of the medical record, discussions with family, consultants, nursing staff, or respiratory therapy, and documentation in the medical record. Bal Cooley MD Sep 21, 2016 15:59
[2016-09-21] MEDS: LEVOFLOXACIN 750 MG PREMIX INJ 150 ML IV SCH (16:30)
[2016-09-21] MEDS: ATORVASTATIN 20 MG TAB PO SCH (20:19)
[2016-09-21] MEDS: HEPARIN SODIUM - SQ 10,000 UNITS/ML VIAL SQ SCH (20:19)
[2016-09-22] VITALS (47 sets, daily range): BP systolic 86–132; BP diastolic 50–89; PULSE 93–121; RESP 16–47; TEMP 99.1–101.8; O2SAT 79–100
[2016-09-22] MEDS: CHLORHEXIDINE GLUCONATE 2 % 1 PACK (2 CLOTHS) TOP SCH (02:27)
[2016-09-22] MEDS: PROPOFOL 1000 MG/100 ML INJ 100 ML IV SCH ×2 (02:27→05:42)
[2016-09-22] MEDS: RESP: ALBUTEROL 2.5 MG/IPRATROPIUM 0.5 MG NEB (SCH) INH ×3 (04:19→22:00)
[2016-09-22 04:40] LABS: AUTOMATED NEUTROPHIL # 7.8 TH/MM3 (1.8-7.7); BASOPHIL % 0.5 % (0.0-2.0); EOSINOPHIL % 0.1 % (0.0-4.0); HEMATOCRIT 36.1 % (35.0-46.0); HEMO FLAGS DIFF FINAL; LYMPH % 4.6 % (9.0-44.0); LYMPHOCYTE # 0.4 TH/MM3 (1.0-4.8); MEAN CELL VOLUME 88.8 FL (80.0-100.0); MEAN CORPUSCULAR HGB CONC 33.8 % (32.0-36.0); MONO % 3.9 % (0.0-8.0); NEUT % 90.9 % (16.0-70.0); PLATELET COUNT 223 TH/MM3 (150-450); RED BLOOD COUNT 4.06 MIL/MM3 (4.00-5.30); WHITE BLOOD COUNT 8.6 TH/MM3 (4.0-11.0)
[2016-09-22 05:04] LABS: ANION GAP 14 MEQ/L (5-15)
[2016-09-22 05:07] LABS: ALKALINE PHOSPHATASE 71 U/L (45-117); ALT (GPT) 16 U/L (10-53); AST (GOT) 48 U/L (15-37); BICARBONATE 19.9 MEQ/L (21.0-32.0); BLOOD UREA NITROGEN 8 MG/DL (7-18); CHLORIDE 105 MEQ/L (98-107); GLOMERULAR FILTRATION RATE 127 ML/MIN (>89); SODIUM (NA) 139 MEQ/L (136-145); TOTAL BILIRUBIN ADULT 0.4 MG/DL (0.2-1.0)
[2016-09-22 05:11] LABS: POTASSIUM 2.9 MEQ/L (3.5-5.1)
[2016-09-22] MEDS ORDERED: POTASSIUM PHOSPHATE MONOBASIC 500 MG TAB PO/TUBE PRN (05:30)
[2016-09-22] MEDS ORDERED: POTASSIUM CHLORIDE 25 MEQ EFFERVESCENT TAB PO PRN (05:30)
[2016-09-22] MEDS ORDERED: MAGNESIUM SULFATE INJ 4 GM in SODIUM CHLORIDE 0.9% INJ 92 ML IV PRN (05:30)
[2016-09-22] MEDS ORDERED: POTASSIUM PHOSPHATE INJ 30 MMOL in SODIUM CHLOR 0.9% 250 ML INJ 250 ML IV PRN (05:30)
[2016-09-22] MEDS ORDERED: SODIUM PHOSPHATE INJ 30 MMOL in SODIUM CHLOR 0.9% 250 ML INJ 240 ML IV PRN (05:30)
[2016-09-22] MEDS ORDERED: MAGNESIUM SULFATE INJ 2 GM in SODIUM CHLORIDE 0.9% INJ 96 ML IV PRN (05:30)
[2016-09-22] MEDS ORDERED: POTASSIUM PHOSPHATE MONOBASIC 500 MG TAB PO PRN (05:30)
[2016-09-22] MEDS ORDERED: MAGNESIUM OXIDE 400 MG TAB PO PRN (05:30)
[2016-09-22] MEDS ORDERED: POTASSIUM CHLOR 40 MEQ PREMIX 100 ML IV PRN ×2 (05:30)
[2016-09-22] MEDS ORDERED: POTASSIUM CHLOR 20 MEQ PREMIX 100 ML IV PRN (05:30)
[2016-09-22] MEDS: INSULIN ASPART SUPPLEMENTAL SCALE SQ SCH ×4 (05:32→21:00)
[2016-09-22] MEDS: POTASSIUM CHLOR 20 MEQ PREMIX 100 ML IV PRN ×4 (05:42→13:11)
[2016-09-22] MEDS: ACETAMINOPHEN 325 MG TAB PO PRN (05:42)
--- NOTE | 2016-09-22 07:24 | HHI.PR ---
Review/Management Diagnosis/Plan: (1) Seizure Plan: ? etiology ? med induced vs withdrawal? vs etoh withdrawal on chronic opiods eeg- no active sz's recs fever- etiology? strep bacteremia- repeat cx's pending neuro stable fu keppra level-pending iv keppra extubation per ccm no driving/climbing heights/swimming alone or operating any dangerous machinery d/w rn (2) Encephalopathy acute Plan: improved mri brain nml (3) Chronic pain Subjective Subjective Comments No acute events reported No headache No chest pain No dyspnea Active Medications Current Medications Medications (Trade) Dose Ordered Sig/Sonja Route Start Time Stop Time Status Last Admin Sodium Chloride 2 ml 2 ml UNSCH PRN IVF 09/20/16 10:00 (NS 1000 ml Inj) 1,000 ml @ 84 mls/hr [id number] IV 09/20/16 13:00 09/21/16 20:20 (NS Flush) 2 ml BID IV FLUSH 09/20/16 21:00 09/21/16 20:19 (Tylenol) 650 mg Q6H PRN PO 09/20/16 12:15 09/22/16 05:42 (Pepcid Inj) 20 mg Q12HR IV PUSH 09/20/16 21:00 09/21/16 20:19 (Tears Naturale Opth Soln) 1 drop TID EACH EYE 09/20/16 13:00 09/21/16 17:08 (Zofran Inj) 4 mg Q6H PRN IV 09/20/16 12:15 Miscellaneous Information 1 Q361D XX 09/20/16 12:15 09/20/16 12:15 (Chlorhexidine 2% Cloth) 3 pack Taper DAILY@04 TOP 09/21/16 04:00 09/17/17 03:59 09/22/16 02:27 (Eileen-Colace) 1 tab BID PO 09/20/16 21:00 09/21/16 20:19 (Milk Of Magnesia Liq) 30 ml Q12H PRN PO 09/20/16 12:15 (Senokot) 17.2 mg Q12H PRN PO 09/20/16 12:15 (Dulcolax Supp) 10 mg DAILY PRN RECTAL 09/20/16 12:15 Lactulose 30 ml 30 ml DAILY PRN PO 09/20/16 12:15 (Diprivan 1000 Mg/100ml Inj) 100 ml @ 0 mls/hr TITRATE IV 09/20/16 12:15 09/22/16 05:42 Chlorhexidine Gluconate 15 ml 15 ml BID@08,20 MT 09/20/16 20:00 09/21/16 20:18 (Keppra 1000 Mg Inj) 100 ml @ 400 mls/hr Q12HR IV 09/20/16 21:00 09/21/16 20:19 (Norvasc) 10 mg DAILY PO 09/21/16 09:00 09/21/16 08:03 (Lipitor) 20 mg HS PO 09/20/16 21:00 09/21/16 20:19 (Lopressor) 25 mg DAILY PO 09/21/16 09:00 09/21/16 08:04 Hydralazine HCl 20 mg 20 mg Q4H PRN IV PUSH 09/20/16 13:15 Multivitamins 10 ml/Folic Acid 1 mg/Sodium Chloride 510.2 ml @ 125 mls/hr Q24H IV 09/20/16 14:00 09/25/16 13:59 09/21/16 14:27 (Thiamine Inj/NS Inj) 101 ml @ 100 mls/hr Q24H IV 09/20/16 14:00 09/23/16 13:59 09/21/16 13:41 (D50w (Vial) Inj) 50 ml UNSCH PRN IV 09/20/16 16:15 Glucagon 1 mg 1 mg UNSCH PRN OTHER 09/20/16 16:15 Fentanyl Citrate 250 ml @ 0 mls/hr TITRATE IV 09/20/16 19:45 09/21/16 23:56 (Precedex Inj/NS 250 ml Inj) 250 ml @ 0 mls/hr TITRATE IV 09/20/16 21:30 09/21/16 23:11 (Ativan Inj) 2 mg Q2H PRN IV PUSH 09/21/16 12:45 09/21/16 21:42 (Romazicon Inj) 0.2 mg Q1M PRN IV PUSH 09/21/16 12:45 (Ativan) 1 mg Q4H PRN PO 09/21/16 12:45 (Ativan Inj) 1 mg Q4H PRN IV PUSH 09/21/16 12:45 (Ativan) 2 mg Q2H PRN PO 09/21/16 12:45 (Ativan Inj) 2 mg Q2H PRN IV PUSH 09/21/16 12:45 (Ativan Inj) 2 mg Q1H PRN IV PUSH 09/21/16 12:45 (Ativan Inj) 2 mg Q15M PRN IV PUSH 09/21/16 12:45 (Librium) 20 mg Q12HR PO 09/21/16 13:00 09/21/16 20:19 Heparin Sodium (Porcine) 5000 units 5,000 units BID SQ 09/21/16 21:00 09/21/16 20:19 Levofloxacin/ Dextrose 150 ml @ 100 mls/hr Q24H IV 09/21/16 16:00 09/21/16 16:30 Potassium Chloride 100 ml @ 50 mls/hr Q2H PRN IV 09/22/16 05:30 (KCl 20 Meq Premix Inj) 100 ml @ 50 mls/hr Q2H PRN IV 09/22/16 05:30 09/22/16 05:42 Potassium Bicarb/ Potassium Chloride 50 meq 50 meq UNSCH PRN PO 09/22/16 05:30 Potassium Chloride 100 ml @ 25 mls/hr UNSCH PRN IV 09/22/16 05:30 Potassium Chloride 100 ml @ 50 mls/hr Q2H PRN IV 09/22/16 05:30 (Magnesium Sulfate Inj/NS Inj) 100 ml @ 50 mls/hr UNSCH PRN IV 09/22/16 05:30 Magnesium Oxide 800 mg 800 mg UNSCH PRN PO 09/22/16 05:30 (Magnesium Sulfate Inj/NS Inj) 100 ml @ 50 mls/hr UNSCH PRN IV 09/22/16 05:30 Potassium Phosphate 2000 mg 2,000 mg Q4H PRN PO 09/22/16 05:30 (Sodium Phosphate Inj/NS 250 ml Inj) 250 ml @ 42 mls/hr UNSCH PRN IV 09/22/16 05:30 Potassium Phosphate 2000 mg 2,000 mg UNSCH PRN PO/TUBE 09/22/16 05:30 (Potassium Phosphate Inj/NS 250 ml Inj) 260 ml @ 42 mls/hr UNSCH PRN IV 09/22/16 05:30 Allergies Allergies Coded Allergies No Known Allergies (Unverified08/11/15) Review of Systems All other ROS: ROS reviewed as documented in chart Exam I&O / VS 09/21/16 09/21/16 09/22/16 15:00 23:00 07:00 Intake Total 1467 ml 1158 ml 1200 ml Output Total 450 ml 350 ml 300 ml Balance 1017 ml 808 ml 900 ml Intake IV Total 1467 ml 1158 ml 1200 ml Output Urine Total 450 ml 350 ml 300 ml Vital Signs Date Time Temp Pulse Resp B/P Pulse Ox O2 Delivery O2 Flow Rate FiO2 09/22/16 06:00 93 09/22/16 04:19 98 40 09/22/16 04:00 101.8 99 18 95/52 95 09/22/16 04:00 99 09/22/16 04:00 40 09/22/16 02:12 97 40 09/22/16 02:00 96 09/22/16 00:00 98 09/22/16 00:00 40 09/22/16 00:00 100.8 98 18 123/74 95 09/21/16 22:52 94 40 09/21/16 22:00 103 09/21/16 20:48 96 40 09/21/16 20:00 40 09/21/16 20:00 99.3 93 18 82/56 97 09/21/16 20:00 93 09/21/16 18:00 89 09/21/16 17:44 98 40 09/21/16 16:30 86 32 105/70 99 09/21/16 16:00 40 09/21/16 16:00 98.8 86 60 113/75 99 09/21/16 16:00 86 09/21/16 15:30 86 33 115/77 99 09/21/16 15:00 88 38 116/76 99 09/21/16 14:30 89 36 118/77 99 09/21/16 14:00 89 09/21/16 14:00 89 18 113/74 98 09/21/16 13:30 86 18 93/62 98 09/21/16 13:00 87 18 88/59 96 09/21/16 12:30 83 18 95/67 100 09/21/16 12:00 40 09/21/16 12:00 99.4 83 18 99/72 99 09/21/16 12:00 83 09/21/16 11:38 83 18 93/70 99 09/21/16 11:25 95 40 09/21/16 11:00 83 18 97/65 99 09/21/16 10:30 84 18 96/67 99 09/21/16 10:00 86 18 96/64 98 09/21/16 10:00 84 09/21/16 09:30 89 18 91/64 98 09/21/16 09:00 91 18 91/63 99 09/21/16 08:30 93 18 95/63 98 09/21/16 08:00 40 09/21/16 08:00 86 09/21/16 08:00 99.4 91 18 89/59 98 09/21/16 07:30 87 18 96/68 99 Exam Comments alerts, follows with all 4 ext, intubated, unable to speak, eomi, ou 3-2mm, moves distal ext, in restraints Objective Micro and Labs Laboratory Tests Test 09/22/16 03:57 White Blood Count 8.6 Red Blood Count 4.06 Hemoglobin 12.2 Hematocrit 36.1 Mean Corpuscular Volume 88.8 Mean Corpuscular Hemoglobin 30.0 Mean Corpuscular Hemoglobin 33.8 Concent Red Cell Distribution Width 15.0 Platelet Count 223 Mean Platelet Volume 7.4 Neutrophils (%) (Auto) 90.9 Lymphocytes (%) (Auto) 4.6 Monocytes (%) (Auto) 3.9 Eosinophils (%) (Auto) 0.1 Basophils (%) (Auto) 0.5 Neutrophils # (Auto) 7.8 Lymphocytes # (Auto) 0.4 Monocytes # (Auto) 0.3 Eosinophils # (Auto) 0.0 Basophils # (Auto) 0.0 CBC Comment DIFF FINAL Differential Comment Sodium Level 139 Potassium Level 2.9 Chloride Level 105 Carbon Dioxide Level 19.9 Anion Gap 14 Blood Urea Nitrogen 8 Creatinine 0.50 Estimat Glomerular Filtration 127 Rate Random Glucose 98 Calcium Level 7.6 Phosphorus Level 3.3 Total Bilirubin 0.4 Aspartate Amino Transf 48 (AST/SGOT) Alanine Aminotransferase 16 (ALT/SGPT) Alkaline Phosphatase 71 Total Protein 5.4 Albumin 2.3 Date/Time Procedure Status Source Growth 09/22/16 03:57 Aerobic Blood Culture Received Blood Peripheral Pending 09/22/16 03:57 Anaerobic Blood Culture Received Blood Peripheral Pending 09/20/16 19:14 Aerobic Blood Culture - Preliminary Resulted Blood Peripheral NO GROWTH IN 1 DAY 09/20/16 19:14 Anaerobic Blood Culture - Preliminary Resulted Blood Peripheral NO GROWTH IN 1 DAY 09/20/16 09:50 Urine Culture - Preliminary Resulted Urine Catheterized Urine NO GROWTH IN 24 HOURS. Problem Qualifiers (1) Chronic pain: Qualified Code: G89.4 - Chronic pain syndrome Bennett Samuel MD Sep 22, 2016 07:24
[2016-09-22] MEDS: FAMOTIDINE 20 MG/2 ML VIAL IV PUSH SCH ×2 (07:56→21:00)
[2016-09-22] MEDS: DOCUSATE SODIUM 50 MG/SENNA 8.6 MG TAB PO SCH ×2 (07:56→21:00)
[2016-09-22] MEDS: SODIUM CHLORIDE 0.9% FLUSH 10 ML FLUSH IV FLUSH SCH ×2 (07:57→21:00)
[2016-09-22] MEDS: ARTIFICIAL TEARS OPTH SOLN 15 ML BTL EACH EYE SCH ×3 (07:57→18:01)
[2016-09-22] MEDS: HEPARIN SODIUM - SQ 10,000 UNITS/ML VIAL SQ SCH ×2 (07:57→21:00)
[2016-09-22] MEDS: METOPROLOL TARTRATE 25 MG TAB PO SCH (07:57)
[2016-09-22] MEDS: levETIRAcetam 1000 MG INJ 100 ML IV SCH ×2 (07:57→21:00)
[2016-09-22] MEDS: CHLORHEXIDINE 0.12% (ORAL KIT) 15 ML CUP MT SCH ×2 (07:58→20:00)
[2016-09-22] MEDS ORDERED: LORazepam 2 MG/ML VIAL IV PUSH ONE (08:15)
[2016-09-22] MEDS: SODIUM CHLOR 0.9% 1000 ML INJ 1,000 ML IV SCH (10:37)
[2016-09-22] MEDS: DEXMEDETOMIDINE INJ 1,000 MCG in SODIUM CHLOR 0.9% 250 ML INJ 240 ML IV SCH (12:34)
[2016-09-22] MEDS: LORazepam 2 MG/ML VIAL IV PUSH PRN ×11 (12:34→22:11)
[2016-09-22] MEDS: MULTIVITAMIN INJ 10 ML, FOLIC ACID INJ 1 MG in SODIUM CHLORID 0.9% 500 ML INJ 500 ML IV SCH (13:49)
[2016-09-22] MEDS: THIAMINE INJ 100 MG in SODIUM CHLORIDE 0.9% INJ 100 ML IV SCH (13:49)
--- NOTE | 2016-09-22 15:16 | HHI.CCPN ---
Subjective Remarks/Hospital Course 09/20: This is a 56-year-old female that presented to the ED in respiratory distress. Per ED report the patient was noted to have left-sided left hemiplegia, last witnessed movement at 12 midnight per report. EMS was called, enroute the patient subsequently had 3 witnessed tonic-clonic seizures and received Ativan 2 mg. Upon arrival to ED, the patient was intubated for airway protection. No further seizure activity was noted, the patient was placed on a propofol infusion. Imaging studies were performed CT was negative, urine tox screen was noted to have cannabis and positive for urine opiates(the patient was on morphine ER at home). Patient's medical history is significant for PRES syndrome, and the patient was recently admitted to the hospital 07/26/15. At that time the patient's MRI revealed restricted diffusion in the right posterior parietal lobe and cerebral edema. The patient was notably hyponatremic at that time and presents today with a sodium level 134. Critical care medicine is consulted for management. 09/21: Remains sedated, orally intubated on mechanical ventilation. On propofol/ fentanyl and Precedex and still wakes up and gets agitated. 09/22: Awake and alert, orally intubated on mechanical ventilation on multiple sedatives and Precedex. Receiving Ativan for alcohol withdrawal. Objective Vital Signs Date Time Temp Pulse Resp B/P Pulse Ox O2 Delivery O2 Flow Rate FiO2 09/22/16 14:00 105 09/22/16 13:20 97 40 09/22/16 12:30 18 95/66 09/22/16 12:00 100.6 09/20/16 11:07 Ventilator Intake and Output 09/21/16 09/21/16 09/22/16 08:00 16:00 00:00 Intake Total 1115 ml 1467 ml 1158 ml Output Total 1300 ml 450 ml 350 ml Balance -185 ml 1017 ml 808 ml Result Diagram: 09/22/16 0357 09/22/16 0357 Other Results Microbiology Date/Time Procedure Status Source Growth 09/20/16 09:50 Urine Culture - Final Complete Urine Catheterized Urine Lactobacillus Species Imaging Last Impressions Chest X-Ray 09/20/16 0956 Signed Impressions: Service Date/Time: Tuesday, September 20, 2016 10:02 - CONCLUSION: Support apparatus in good position. Lungs are clear. Car Moseley MD FACR Head CT 09/20/16 0000 Signed Impressions: Service Date/Time: Tuesday, September 20, 2016 10:38 - CONCLUSION: Negative for an acute process. Car Moseley MD FACR Objective Remarks GENERAL: Well-developed well-nourished female intubated and sedated SKIN: Warm and dry. HEAD: Atraumatic. Normocephalic. EYES: Pupils equal and round. No scleral icterus. No injection or drainage. ENT: No nasal bleeding or discharge. Mucous membranes pink and moist. NECK: Trachea midline. No JVD. CARDIOVASCULAR: Normal rate, regular rhythm. RESPIRATORY: No accessory muscle use. Clear to auscultation. Breath sounds equal bilaterally. GASTROINTESTINAL: Abdomen soft, non-tender, nondistended. No guarding. MUSCULOSKELETAL: Extremities without clubbing, cyanosis, or edema. No obvious deformities. NEUROLOGICAL: Sedated, orally intubated on mechanical ventilation. Opens eyes and moves all 4 extremities A/P Assessment and Plan Plan by systems: Neurologic: Toxic/metabolic encephalopathy Seizure disorder EtOH abuse PRES Syndrome Left Hemiplegia? -Neurology consult-on previous admission patient seen by Dr. Hatch -Patient loaded with Dilantin in ED -Obtain Keppra level(home medications include 1 g twice a day) -Continue Keppra 1 g twice a day -History of consumption of alcohol reportedly one 6 pack of beer/day-seizure precautions -Obtain [id number] results -MVI, thiamine and folate infusion 5 days then convert to by mouth Continue CIWA protocol for alcohol withdrawal with Ativan when necessary. librium 20mg via OGT/ PO Q8hrly -Titrate off propofol/fentanyl and continue Precedex for alcohol withdrawal -Neurochecks per ICU protocol Respiratory: Acute respiratory failure -Ventilator bundle -Maintain O2 sat greater than 92% -DuoNeb nebs every 6 hours scheduled and every 2 hours when necessary Tolerating C Pap trials, ordered extubation Cardiovascular: Hypertension Hyperlipidemia -Maintain MAP greater than 65 mmHg -Continue home medications metoprolol 25 mg/day, amlodipine 10 mg/day -Continue Atorvastatin Renal: Insert Ash -- Strict I/Os FEN/GI: Hyponatremia, chronic? -Admission sodium level 134, monitor BMP -Normal saline 84 cc/hour -Start tube feeds and advanced to goal as tolerated. -Zofran for nausea -Protonix for GI prophylaxis Heme/ID: Leukocytosis -Blood culture with strep. Start Levaquin on 09/21. Follow-up repeat blood cultures on 09/22 to f/u for clearance. Endocrine: Hyperglycemia of critical illness Glucose monitoring per ICU protocol Obtain TSH level -- SSI Prophylaxis: GI Prophylaxis Protonix DVT Prophylaxis -- SCDs Will hold heparin subcutaneous pending MRI Lines: Peripheral IVs 2. Central line if indicated Dispo: This patient remains critically ill with one or more organ systems which are or may become a threat to life and severe alcohol withdrawal. I have spent in excess of 30 minutes discontinuously in the care and management of this patient. This time is exclusive of procedures, and includes, but is not limited to, evaluation of the patient, review of the medical record, discussions with family, consultants, nursing staff, or respiratory therapy, and documentation in the medical record. Bal Cooley MD Sep 22, 2016 15:16
[2016-09-22] MEDS: LEVOFLOXACIN 750 MG PREMIX INJ 150 ML IV SCH (16:00)
[2016-09-22] MEDS: ATORVASTATIN 20 MG TAB PO SCH (21:00)
[2016-09-23] VITALS (58 sets, daily range): BP systolic 128–170; BP diastolic 75–112; PULSE 87–114; RESP 22–48; TEMP 95.3–98.9; O2SAT 95–100
[2016-09-23] MEDS: CHLORHEXIDINE GLUCONATE 2 % 1 PACK (2 CLOTHS) TOP SCH ×2 (00:30→22:47)
[2016-09-23] MEDS: LORazepam 2 MG/ML VIAL IV PUSH PRN ×11 (00:38→22:45)
[2016-09-23] MEDS: DEXMEDETOMIDINE INJ 1,000 MCG in SODIUM CHLOR 0.9% 250 ML INJ 240 ML IV SCH ×3 (03:35→21:00)
[2016-09-23] MEDS: RESP: ALBUTEROL 2.5 MG/IPRATROPIUM 0.5 MG NEB (SCH) INH ×4 (04:00→20:54)
[2016-09-23] MEDS: INSULIN ASPART SUPPLEMENTAL SCALE SQ SCH ×4 (07:00→20:42)
[2016-09-23] MEDS ORDERED: LORazepam 2 MG/ML VIAL IV PUSH ONE (07:30)
[2016-09-23] MEDS: CHLORHEXIDINE 0.12% (ORAL KIT) 15 ML CUP MT SCH ×2 (08:00→20:33)
[2016-09-23] MEDS: ARTIFICIAL TEARS OPTH SOLN 15 ML BTL EACH EYE SCH ×3 (08:07→16:30)
[2016-09-23] MEDS: DOCUSATE SODIUM 50 MG/SENNA 8.6 MG TAB PO SCH ×2 (09:00→20:36)
[2016-09-23 09:53] LABS: AUTOMATED NEUTROPHIL # 11.8 TH/MM3 (1.8-7.7); BASOPHIL % 0.1 % (0.0-2.0); HEMATOCRIT 35.4 % (35.0-46.0); HEMO FLAGS DIFF FINAL; LYMPH % 5.2 % (9.0-44.0); LYMPHOCYTE # 0.7 TH/MM3 (1.0-4.8); MEAN CELL VOLUME 87.2 FL (80.0-100.0); MEAN CORPUSCULAR HGB CONC 34.4 % (32.0-36.0); MONO % 6.9 % (0.0-8.0); NEUT % 87.8 % (16.0-70.0); PLATELET COUNT 207 TH/MM3 (150-450); RED BLOOD COUNT 4.06 MIL/MM3 (4.00-5.30); RED CELL DISTRIBUTION WIDTH 14.7 % (11.6-17.2); WHITE BLOOD COUNT 13.4 TH/MM3 (4.0-11.0)
[2016-09-23 10:32] LABS: ALT (GPT) 16 U/L (10-53); AST (GOT) 44 U/L (15-37); BLOOD UREA NITROGEN 4 MG/DL (7-18); CHLORIDE 103 MEQ/L (98-107); GLOMERULAR FILTRATION RATE 238 ML/MIN (>89)
[2016-09-23] MEDS: HEPARIN SODIUM - SQ 10,000 UNITS/ML VIAL SQ SCH ×2 (10:32→20:35)
[2016-09-23] MEDS: FAMOTIDINE 20 MG/2 ML VIAL IV PUSH SCH ×2 (10:32→20:33)
[2016-09-23] MEDS: METOPROLOL TARTRATE 25 MG TAB PO SCH (10:32)
[2016-09-23] MEDS: SODIUM CHLORIDE 0.9% FLUSH 10 ML FLUSH IV FLUSH SCH ×2 (10:33→20:36)
[2016-09-23] MEDS: levETIRAcetam 1000 MG INJ 100 ML IV SCH ×2 (10:33→20:36)
[2016-09-23 10:37] LABS: ALKALINE PHOSPHATASE 67 U/L (45-117); ANION GAP 14 MEQ/L (5-15); BICARBONATE 19.2 MEQ/L (21.0-32.0); SODIUM (NA) 136 MEQ/L (136-145); TOTAL BILIRUBIN ADULT 0.6 MG/DL (0.2-1.0)
[2016-09-23 10:43] LABS: POTASSIUM 2.4 MEQ/L (3.5-5.1)
[2016-09-23] MEDS ORDERED: ZIPRASIDONE MESYLATE 20 MG VIAL IM ONE (11:00)
--- NOTE | 2016-09-23 11:11 | HHI.CCPN ---
Subjective Remarks/Hospital Course 09/20: This is a 56-year-old female that presented to the ED in respiratory distress. Per ED report the patient was noted to have left-sided left hemiplegia, last witnessed movement at 12 midnight per report. EMS was called, enroute the patient subsequently had 3 witnessed tonic-clonic seizures and received Ativan 2 mg. Upon arrival to ED, the patient was intubated for airway protection. No further seizure activity was noted, the patient was placed on a propofol infusion. Imaging studies were performed CT was negative, urine tox screen was noted to have cannabis and positive for urine opiates(the patient was on morphine ER at home). Patient's medical history is significant for PRES syndrome, and the patient was recently admitted to the hospital 07/26/15. At that time the patient's MRI revealed restricted diffusion in the right posterior parietal lobe and cerebral edema. The patient was notably hyponatremic at that time and presents today with a sodium level 134. Critical care medicine is consulted for management. 09/21: Remains sedated, orally intubated on mechanical ventilation. On propofol/ fentanyl and Precedex and still wakes up and gets agitated. 09/22: Awake and alert, orally intubated on mechanical ventilation on multiple sedatives and Precedex. Receiving Ativan for alcohol withdrawal. 09/23: Extubated on 09/22 to nasal cannula. Significant agitation requiring Precedex gtt. and Ativan IV due to alcohol withdrawal. Objective Vital Signs Date Time Temp Pulse Resp B/P Pulse Ox O2 Delivery O2 Flow Rate FiO2 09/23/16 09:28 98 Nasal Cannula 4.00 09/23/16 08:00 98.7 100 34 148/85 09/22/16 13:20 40 Intake and Output 09/22/16 09/22/16 09/22/16 07:59 15:59 23:59 Intake Total 1200 ml 1538 ml 1030 ml Output Total 300 ml 425 ml Balance 900 ml 1113 ml 1030 ml Result Diagram: 09/23/16 0932 09/23/16 0932 Imaging Last Impressions Chest X-Ray 09/20/16 0956 Signed Impressions: Service Date/Time: Tuesday, September 20, 2016 10:02 - CONCLUSION: Support apparatus in good position. Lungs are clear. Car Moseley MD FACR Head CT 09/20/16 0000 Signed Impressions: Service Date/Time: Tuesday, September 20, 2016 10:38 - CONCLUSION: Negative for an acute process. Car Moseley MD FACR Objective Remarks GENERAL: Well-developed well-nourished female laying in bed, agitated SKIN: Warm and dry. HEAD: Atraumatic. Normocephalic. EYES: Pupils equal and round. No scleral icterus. No injection or drainage. ENT: No nasal bleeding or discharge. Mucous membranes pink and moist. NECK: Trachea midline. No JVD. CARDIOVASCULAR: Normal rate, regular rhythm. RESPIRATORY: No accessory muscle use. Clear to auscultation. Breath sounds equal bilaterally. GASTROINTESTINAL: Abdomen soft, non-tender, nondistended. No guarding. MUSCULOSKELETAL: Extremities without clubbing, cyanosis, or edema. No obvious deformities. NEUROLOGICAL: Sedated, orally intubated on mechanical ventilation. Opens eyes and moves all 4 extremities A/P Assessment and Plan Plan by systems: Neurologic: Toxic/metabolic encephalopathy Seizure disorder EtOH abuse PRES Syndrome Left Hemiplegia? -Neurology consult-on previous admission patient seen by Dr. Hatch -Patient loaded with Dilantin in ED -Obtain Keppra level(home medications include 1 g twice a day) -Continue Keppra 1 g twice a day -History of consumption of alcohol reportedly one 6 pack of beer/day-seizure precautions -Follow up EEG -MVI, thiamine and folate infusion 5 days then convert to by mouth Continue CIWA protocol for alcohol withdrawal with Ativan when necessary. Increase librium 50mg via OGT/ PO [id number] on 09/23 however not ready for by mouth due to concern for aspiration. -Continue Precedex for alcohol withdrawal. Ordered Geodon 20 mg IM 1 dose on . Ativan 4 mg IV every 2 hourly 6 doses ordered on 09/23 to control alcohol withdrawal. -Neurochecks per ICU protocol Respiratory: Acute respiratory failure -Extubated following C Pap trial on 09/22. On nasal cannula -Maintain O2 sat greater than 92% -DuoNeb nebs every 6 hours scheduled and every 2 hours when necessary Cardiovascular: Hypertension Hyperlipidemia -Maintain MAP greater than 65 mmHg -Continue home medications metoprolol 25 mg/day, amlodipine 10 mg/day -Continue Atorvastatin Renal: Insert Ash -- Strict I/Os FEN/GI: Hyponatremia, chronic? -Admission sodium level 134, monitor BMP -Normal saline 84 cc/hour -Currently nothing by mouth. Speech swallow eval to decide by mouth intake. -Zofran for nausea -Protonix for GI prophylaxis Heme/ID: Leukocytosis -Blood culture with strep. Continue Levaquin on 09/21. Follow-up repeat blood cultures on 09/22 to f/u for clearance. Endocrine: Hyperglycemia of critical illness Glucose monitoring per ICU protocol Obtain TSH level -- SSI Prophylaxis: GI Prophylaxis Protonix DVT Prophylaxis -- SCDs Start subcutaneous heparin on 09/23 Lines: Peripheral IVs 2. Central line if indicated Bal Cooley MD Sep 23, 2016 11:11
[2016-09-23] MEDS: SODIUM CHLOR 0.9% 1000 ML INJ 1,000 ML IV SCH ×2 (11:39→21:03)
[2016-09-23] MEDS: POTASSIUM CHLOR 20 MEQ PREMIX 100 ML IV PRN ×4 (11:40→18:24)
[2016-09-23] MEDS: LORazepam 2 MG/ML VIAL IV PUSH SCH ×7 (11:40→22:47)
[2016-09-23] MEDS: MULTIVITAMIN INJ 10 ML, FOLIC ACID INJ 1 MG in SODIUM CHLORID 0.9% 500 ML INJ 500 ML IV SCH (13:22)
[2016-09-23] MEDS: LEVOFLOXACIN 750 MG PREMIX INJ 150 ML IV SCH (16:30)
--- NOTE | 2016-09-23 16:49 | HHI.PR ---
Review/Management Diagnosis/Plan: (1) Seizure Plan: ? etiology probable etoh withdrawal. per rn, pt heavy drinker. on chronic opiods eeg- no active sz's recs no further sz's appears possibly etoh-withdrawal related lighten sedation and tx to 5th floor with tele no driving/climbing heights/swimming alone or operating any dangerous machinery d/w rn (2) Encephalopathy acute Plan: improved mri brain nml (3) Chronic pain Subjective Subjective Comments No acute events reported no sz's Active Medications Current Medications Medications (Trade) Dose Ordered Sig/Sonja Route Start Time Stop Time Status Last Admin Sodium Chloride 2 ml 2 ml UNSCH PRN IVF 09/20/16 10:00 (NS 1000 ml Inj) 1,000 ml @ 84 mls/hr [id number] IV 09/20/16 13:00 09/23/16 11:39 (NS Flush) 2 ml BID IV FLUSH 09/20/16 21:00 09/23/16 10:33 (Tylenol) 650 mg Q6H PRN PO 09/20/16 12:15 09/22/16 05:42 (Pepcid Inj) 20 mg Q12HR IV PUSH 09/20/16 21:00 09/23/16 10:32 (Tears Naturale Opth Soln) 1 drop TID EACH EYE 09/20/16 13:00 09/23/16 16:30 (Zofran Inj) 4 mg Q6H PRN IV 09/20/16 12:15 Miscellaneous Information 1 Q361D XX 09/20/16 12:15 09/20/16 12:15 (Chlorhexidine 2% Cloth) 3 pack Taper DAILY@04 TOP 09/21/16 04:00 09/17/17 03:59 09/23/16 00:30 (Eileen-Colace) 1 tab BID PO 09/20/16 21:00 09/22/16 07:56 (Milk Of Magnesia Liq) 30 ml Q12H PRN PO 09/20/16 12:15 (Senokot) 17.2 mg Q12H PRN PO 09/20/16 12:15 (Dulcolax Supp) 10 mg DAILY PRN RECTAL 09/20/16 12:15 (Lactulose Liq) 30 ml DAILY PRN PO 09/20/16 12:15 Chlorhexidine Gluconate 15 ml 15 ml BID@08,20 MT 09/20/16 20:00 09/22/16 20:00 (Keppra 1000 Mg Inj) 100 ml @ 400 mls/hr Q12HR IV 09/20/16 21:00 09/23/16 10:33 (Norvasc) 10 mg DAILY PO 09/21/16 09:00 09/23/16 10:32 (Lipitor) 20 mg HS PO 09/20/16 21:00 09/21/16 20:19 (Lopressor) 25 mg DAILY PO 09/21/16 09:00 09/23/16 10:32 Hydralazine HCl 20 mg 20 mg Q4H PRN IV PUSH 09/20/16 13:15 (Mvi-12 Inj/ Folvite Inj/NS 500 ml Inj) 510.2 ml @ 125 mls/hr Q24H IV 09/20/16 14:00 09/25/16 13:59 09/23/16 13:22 (D50w (Vial) Inj) 50 ml UNSCH PRN IV 09/20/16 16:15 Glucagon 1 mg 1 mg UNSCH PRN OTHER 09/20/16 16:15 (Precedex Inj/NS 250 ml Inj) 250 ml @ 0 mls/hr TITRATE IV 09/20/16 21:30 09/23/16 16:29 (Ativan Inj) 2 mg Q2H PRN IV PUSH 09/21/16 12:45 09/23/16 10:34 (Romazicon Inj) 0.2 mg Q1M PRN IV PUSH 09/21/16 12:45 (Ativan) 1 mg Q4H PRN PO 09/21/16 12:45 (Ativan Inj) 1 mg Q4H PRN IV PUSH 09/21/16 12:45 09/23/16 07:23 (Ativan) 2 mg Q2H PRN PO 09/21/16 12:45 (Ativan Inj) 2 mg Q2H PRN IV PUSH 09/21/16 12:45 09/22/16 18:01 (Ativan Inj) 2 mg Q1H PRN IV PUSH 09/21/16 12:45 (Ativan Inj) 2 mg Q15M PRN IV PUSH 09/21/16 12:45 09/22/16 18:44 Heparin Sodium (Porcine) 5000 units 5,000 units BID SQ 09/21/16 21:00 09/23/16 10:32 Levofloxacin/ Dextrose 150 ml @ 100 mls/hr Q24H IV 09/21/16 16:00 09/23/16 16:30 Potassium Chloride 100 ml @ 50 mls/hr Q2H PRN IV 09/22/16 05:30 (KCl 20 Meq Premix Inj) 100 ml @ 50 mls/hr Q2H PRN IV 09/22/16 05:30 09/23/16 16:30 Potassium Bicarb/ Potassium Chloride 50 meq 50 meq UNSCH PRN PO 09/22/16 05:30 Potassium Chloride 100 ml @ 25 mls/hr UNSCH PRN IV 09/22/16 05:30 Potassium Chloride 100 ml @ 50 mls/hr Q2H PRN IV 09/22/16 05:30 (Magnesium Sulfate Inj/NS Inj) 100 ml @ 50 mls/hr UNSCH PRN IV 09/22/16 05:30 Magnesium Oxide 800 mg 800 mg UNSCH PRN PO 09/22/16 05:30 (Magnesium Sulfate Inj/NS Inj) 100 ml @ 50 mls/hr UNSCH PRN IV 09/22/16 05:30 Potassium Phosphate 2000 mg 2,000 mg Q4H PRN PO 09/22/16 05:30 (Sodium Phosphate Inj/NS 250 ml Inj) 250 ml @ 42 mls/hr UNSCH PRN IV 09/22/16 05:30 Potassium Phosphate 2000 mg 2,000 mg UNSCH PRN PO/TUBE 09/22/16 05:30 (Potassium Phosphate Inj/NS 250 ml Inj) 260 ml @ 42 mls/hr UNSCH PRN IV 09/22/16 05:30 (Ativan Inj) 4 mg Q2H IV PUSH 09/23/16 10:45 09/23/16 23:30 09/23/16 16:30 (Librium) 50 mg Q12HR PO 09/23/16 21:00 Allergies Allergies Coded Allergies No Known Allergies (Unverified08/11/15) Review of Systems All other ROS: ROS reviewed as documented in chart Exam I&O / VS 09/22/16 09/22/16 09/23/16 15:00 23:00 07:00 Intake Total 1538 ml 1030 ml 848 ml Output Total 425 ml Balance 1113 ml 1030 ml 848 ml Intake Oral 0 ml 0 ml IV Total 1538 ml 1030 ml 848 ml Output Urine Total 425 ml # Voids 1 # Bowel Movements 2 3 Vital Signs Date Time Temp Pulse Resp B/P Pulse Ox O2 Delivery O2 Flow Rate FiO2 09/23/16 13:30 110 43 133/102 97 09/23/16 13:00 99 35 159/93 98 09/23/16 12:57 100 30 160/88 98 09/23/16 12:30 93 33 144/103 97 09/23/16 12:00 98.7 91 33 140/84 97 09/23/16 12:00 91 09/23/16 11:30 100 37 142/83 09/23/16 11:00 107 40 146/95 09/23/16 10:30 95 28 135/83 09/23/16 10:00 103 32 131/87 09/23/16 10:00 103 09/23/16 09:30 92 27 131/79 09/23/16 09:28 98 Nasal Cannula 4.00 09/23/16 09:00 95 31 145/88 09/23/16 08:00 100 09/23/16 08:00 98.7 100 34 148/85 97 09/23/16 07:30 101 40 142/90 09/23/16 07:00 100 42 150/90 09/23/16 07:00 100 42 150/90 09/23/16 06:45 101 30 09/23/16 06:30 98 28 149/91 09/23/16 06:15 103 40 09/23/16 06:00 100 35 134/97 09/23/16 06:00 100 09/23/16 05:45 106 38 09/23/16 05:30 97 39 144/83 09/23/16 05:15 100 41 09/23/16 05:00 104 35 150/92 09/23/16 04:45 97 31 09/23/16 04:30 101 36 151/88 09/23/16 04:15 109 38 09/23/16 04:00 101 09/23/16 04:00 95.3 101 28 147/93 09/23/16 04:00 101 46 147/93 09/23/16 04:00 101 46 147/93 09/23/16 03:45 113 46 09/23/16 03:31 106 43 148/85 09/23/16 03:30 109 38 09/23/16 03:15 114 48 09/23/16 03:00 104 44 09/23/16 02:45 109 39 09/23/16 02:30 101 33 128/75 09/23/16 02:15 101 29 09/23/16 02:00 109 09/23/16 02:00 109 44 134/92 09/23/16 01:45 108 37 09/23/16 01:30 106 27 151/91 09/23/16 01:15 110 43 09/23/16 01:04 104 31 132/81 09/23/16 01:00 109 37 09/23/16 00:45 106 44 09/23/16 00:30 106 30 146/82 09/23/16 00:15 107 36 09/23/16 00:00 105 35 142/80 09/23/16 00:00 105 09/23/16 00:00 105 35 142/80 09/23/16 00:00 98.2 105 22 142/80 09/22/16 23:45 113 47 09/22/16 23:30 109 38 131/87 09/22/16 23:15 103 34 09/22/16 23:00 103 27 130/79 09/22/16 22:56 104 16 123/77 09/22/16 22:45 111 43 09/22/16 22:30 110 38 09/22/16 22:15 121 36 09/22/16 22:14 4.00 09/22/16 22:00 104 21 126/79 09/22/16 22:00 104 09/22/16 22:00 99.5 106 20 122/74 100 09/22/16 21:45 103 25 99 09/22/16 21:30 103 22 132/89 98 09/22/16 21:15 107 27 09/22/16 21:00 103 28 126/81 09/22/16 20:45 109 28 09/22/16 20:30 105 22 128/76 09/22/16 20:15 103 25 09/22/16 20:00 106 29 122/74 09/22/16 20:00 106 09/22/16 18:00 100 Exam Comments very drowsy but arousable extubated, follows with all 4 ext, eomi, ou 3-2mm, moves distal ext, in restraints Objective Micro and Labs Laboratory Tests Test 09/22/16 09/23/16 18:45 09:32 Potassium Level 3.7 2.4 White Blood Count 13.4 Red Blood Count 4.06 Hemoglobin 12.2 Hematocrit 35.4 Mean Corpuscular Volume 87.2 Mean Corpuscular Hemoglobin 30.0 Mean Corpuscular Hemoglobin 34.4 Concent Red Cell Distribution Width 14.7 Platelet Count 207 Mean Platelet Volume 7.5 Neutrophils (%) (Auto) 87.8 Lymphocytes (%) (Auto) 5.2 Monocytes (%) (Auto) 6.9 Eosinophils (%) (Auto) 0.0 Basophils (%) (Auto) 0.1 Neutrophils # (Auto) 11.8 Lymphocytes # (Auto) 0.7 Monocytes # (Auto) 0.9 Eosinophils # (Auto) 0.0 Basophils # (Auto) 0.0 CBC Comment DIFF FINAL Differential Comment Sodium Level 136 Chloride Level 103 Carbon Dioxide Level 19.2 Anion Gap 14 Blood Urea Nitrogen 4 Creatinine 0.29 Estimat Glomerular Filtration 238 Rate Random Glucose 90 Calcium Level 8.2 Magnesium Level 1.6 Total Bilirubin 0.6 Aspartate Amino Transf 44 (AST/SGOT) Alanine Aminotransferase 16 (ALT/SGPT) Alkaline Phosphatase 67 Total Protein 5.9 Albumin 2.4 Date/Time Procedure Status Source Growth 09/22/16 03:57 Aerobic Blood Culture - Preliminary Resulted Blood Peripheral NO GROWTH IN 1 DAY 09/22/16 03:57 Anaerobic Blood Culture - Preliminary Resulted Blood Peripheral NO GROWTH IN 1 DAY 09/20/16 19:09 Aerobic Blood Culture - Final Resulted Blood Peripheral Viridans Streptococcus Grp 09/20/16 19:09 Anaerobic Blood Culture - Preliminary Resulted Blood Peripheral NO GROWTH IN 3 DAYS 09/20/16 09:50 Urine Culture - Final Complete Urine Catheterized Urine Lactobacillus Species Problem Qualifiers (1) Chronic pain: Qualified Code: G89.4 - Chronic pain syndrome Bennett Samuel MD Sep 23, 2016 16:49
[2016-09-23] MEDS: chlordiazePOXIDE 25 MG CAP PO SCH (20:35)
[2016-09-23] MEDS: ATORVASTATIN 20 MG TAB PO SCH (20:36)
[2016-09-24] VITALS (29 sets, daily range): BP systolic 132–178; BP diastolic 87–104; PULSE 86–104; RESP 20–49; TEMP 98.1–98.9; O2SAT 95–100
[2016-09-24] MEDS: LORazepam 2 MG/ML VIAL IV PUSH PRN ×13 (01:13→23:04)
[2016-09-24 02:28] LABS: AUTOMATED NEUTROPHIL # 16.6 TH/MM3 (1.8-7.7); BASOPHIL % 0.2 % (0.0-2.0); HEMATOCRIT 39.9 % (35.0-46.0); HEMO FLAGS DIFF FINAL; LYMPH % 4.2 % (9.0-44.0); LYMPHOCYTE # 0.8 TH/MM3 (1.0-4.8); MEAN CELL VOLUME 88.7 FL (80.0-100.0); MEAN CORPUSCULAR HEMOGLOBIN 29.6 PG (27.0-34.0); MEAN CORPUSCULAR HGB CONC 33.3 % (32.0-36.0); MONO % 8.1 % (0.0-8.0); NEUT % 87.5 % (16.0-70.0); PLATELET COUNT 234 TH/MM3 (150-450); RED CELL DISTRIBUTION WIDTH 14.6 % (11.6-17.2)
[2016-09-24] MEDS: RESP: ALBUTEROL 2.5 MG/IPRATROPIUM 0.5 MG NEB (SCH) INH ×2 (02:43→08:02)
[2016-09-24 02:57] LABS: ALKALINE PHOSPHATASE 71 U/L (45-117); ALT (GPT) 17 U/L (10-53); ANION GAP 14 MEQ/L (5-15); AST (GOT) 31 U/L (15-37); BICARBONATE 18.4 MEQ/L (21.0-32.0); BLOOD UREA NITROGEN 4 MG/DL (7-18); CHLORIDE 102 MEQ/L (98-107); GLOMERULAR FILTRATION RATE 259 ML/MIN (>89); SODIUM (NA) 134 MEQ/L (136-145); TOTAL BILIRUBIN ADULT 0.7 MG/DL (0.2-1.0)
[2016-09-24 02:59] LABS: POTASSIUM 2.8 MEQ/L (3.5-5.1)
[2016-09-24] MEDS: POTASSIUM CHLOR 20 MEQ PREMIX 100 ML IV PRN ×6 (03:07→21:45)
[2016-09-24] MEDS: INSULIN ASPART SUPPLEMENTAL SCALE SQ SCH ×4 (06:49→20:19)
[2016-09-24] MEDS: CHLORHEXIDINE 0.12% (ORAL KIT) 15 ML CUP MT SCH ×2 (08:00→20:00)
[2016-09-24] MEDS: ARTIFICIAL TEARS OPTH SOLN 15 ML BTL EACH EYE SCH ×3 (08:54→17:22)
[2016-09-24] MEDS: levETIRAcetam 1000 MG INJ 100 ML IV SCH ×2 (08:55→20:19)
[2016-09-24] MEDS: METOPROLOL TARTRATE 25 MG TAB PO SCH (08:55)
[2016-09-24] MEDS: FAMOTIDINE 20 MG/2 ML VIAL IV PUSH SCH ×2 (08:55→20:16)
[2016-09-24] MEDS: SODIUM CHLORIDE 0.9% FLUSH 10 ML FLUSH IV FLUSH SCH ×2 (08:55→20:17)
[2016-09-24] MEDS: DOCUSATE SODIUM 50 MG/SENNA 8.6 MG TAB PO SCH ×2 (08:55→20:17)
[2016-09-24] MEDS: chlordiazePOXIDE 25 MG CAP PO SCH ×2 (08:55→20:17)
[2016-09-24] MEDS: HEPARIN SODIUM - SQ 10,000 UNITS/ML VIAL SQ SCH ×2 (08:56→20:17)
[2016-09-24] MEDS: SODIUM CHLOR 0.9% 1000 ML INJ 1,000 ML IV SCH (11:19)
[2016-09-24] MEDS: MULTIVITAMIN INJ 10 ML, FOLIC ACID INJ 1 MG in SODIUM CHLORID 0.9% 500 ML INJ 500 ML IV SCH (13:42)
[2016-09-24] MEDS: LEVOFLOXACIN 750 MG PREMIX INJ 150 ML IV SCH (15:19)
--- NOTE | 2016-09-24 15:38 | HHI.CCPN ---
Subjective Remarks/Hospital Course 09/20: This is a 56-year-old female that presented to the ED in respiratory distress. Per ED report the patient was noted to have left-sided left hemiplegia, last witnessed movement at 12 midnight per report. EMS was called, enroute the patient subsequently had 3 witnessed tonic-clonic seizures and received Ativan 2 mg. Upon arrival to ED, the patient was intubated for airway protection. No further seizure activity was noted, the patient was placed on a propofol infusion. Imaging studies were performed CT was negative, urine tox screen was noted to have cannabis and positive for urine opiates(the patient was on morphine ER at home). Patient's medical history is significant for PRES syndrome, and the patient was recently admitted to the hospital 07/26/15. At that time the patient's MRI revealed restricted diffusion in the right posterior parietal lobe and cerebral edema. The patient was notably hyponatremic at that time and presents today with a sodium level 134. Critical care medicine is consulted for management. 09/21: Remains sedated, orally intubated on mechanical ventilation. On propofol/ fentanyl and Precedex and still wakes up and gets agitated. 09/22: Awake and alert, orally intubated on mechanical ventilation on multiple sedatives and Precedex. Receiving Ativan for alcohol withdrawal. 09/23: Extubated on 09/22 to nasal cannula. Significant agitation requiring Precedex gtt. and Ativan IV due to alcohol withdrawal. 09/24: Remains on nasal cannula. Still requiring significant Ativan for alcohol withdrawal. Precedex titrated off. Drowsy, arousable. Remains disoriented. Objective Vital Signs Date Time Temp Pulse Resp B/P Pulse Ox O2 Delivery O2 Flow Rate FiO2 09/24/16 12:00 94 38 151/94 97 09/24/16 08:05 35 09/24/16 08:04 Nasal Cannula 3.00 09/24/16 04:00 98.9 Intake and Output 09/23/16 09/23/16 09/23/16 07:59 15:59 23:59 Intake Total 848 ml 1262 ml 1150 ml Output Total 2300 ml 1250 ml Balance 848 ml -1038 ml -100 ml Result Diagram: 09/24/16 0135 09/24/16 0135 Imaging Last Impressions Chest X-Ray 09/20/16 0956 Signed Impressions: Service Date/Time: Tuesday, September 20, 2016 10:02 - CONCLUSION: Support apparatus in good position. Lungs are clear. Car Moseley MD FACR Head CT 09/20/16 0000 Signed Impressions: Service Date/Time: Tuesday, September 20, 2016 10:38 - CONCLUSION: Negative for an acute process. Car Moseley MD FACR Objective Remarks GENERAL: Well-developed well-nourished female laying in bed, drowsy, easily arousable, disoriented SKIN: Warm and dry. HEAD: Atraumatic. Normocephalic. EYES: Pupils equal and round. No scleral icterus. No injection or drainage. ENT: No nasal bleeding or discharge. Mucous membranes pink and moist. NECK: Trachea midline. No JVD. CARDIOVASCULAR: Normal rate, regular rhythm. RESPIRATORY:Clear to auscultation. Breath sounds equal bilaterally. Tachypneic. GASTROINTESTINAL: Abdomen soft, non-tender, nondistended. No guarding. MUSCULOSKELETAL: Extremities without clubbing, cyanosis, or edema. No obvious deformities. NEUROLOGICAL: Drowsy, easily arousable, disoriented, gets agitated at times. Opens eyes and moves all 4 extremities A/P Assessment and Plan Plan by systems: Neurologic: Toxic/metabolic encephalopathy Seizure disorder EtOH abuse PRES Syndrome Left Hemiplegia? -Neurology consult-on previous admission patient seen by Dr. Hatch -Patient loaded with Dilantin in ED -Obtain Keppra level(home medications include 1 g twice a day) -Continue Keppra 1 g twice a day -History of consumption of alcohol reportedly one 6 pack of beer/day-seizure precautions -Follow up EEG -MVI, thiamine and folate infusion 5 days then convert to by mouth Continue CIWA protocol for alcohol withdrawal with Ativan when necessary. Increase librium 50mg via OGT/ PO [id number] on 09/23 however not ready for by mouth due to concern for aspiration. -Continue Precedex for alcohol withdrawal. Ordered Geodon 20 mg IM 1 dose on . Ativan 4 mg IV every 2 hourly 6 doses ordered on 09/23 to control alcohol withdrawal. -Neurochecks per ICU protocol Respiratory: Acute respiratory failure -Extubated following C Pap trial on 09/22. On nasal cannula -Maintain O2 sat greater than 92% -DuoNeb nebs every 6 hours scheduled and every 2 hours when necessary Cardiovascular: Hypertension Hyperlipidemia -Maintain MAP greater than 65 mmHg -Continue home medications metoprolol 25 mg/day, amlodipine 10 mg/day -Continue Atorvastatin Renal: Insert Ash -- Strict I/Os FEN/GI: Hyponatremia, chronic? -Admission sodium level 134, monitor BMP -Normal saline 84 cc/hour -Currently nothing by mouth. Speech swallow eval to decide by mouth intake. -Zofran for nausea -Protonix for GI prophylaxis Heme/ID: Leukocytosis -Blood culture with strep viridans on 09/20. Started Levaquin IV on 09/21. Follow -up repeat blood cultures on 09/22 negative however leukocytosis worsening. 2-D echo ordered to evaluate for vegetations. Consulted ID for further evaluation of strep viridans bacteremia Endocrine: Hyperglycemia of critical illness Glucose monitoring per ICU protocol Obtain TSH level -- SSI Prophylaxis: GI Prophylaxis Protonix DVT Prophylaxis -- SCDs Started subcutaneous heparin 09/21 Lines: Peripheral IVs 2. Central line if indicated Bal Cooley MD Sep 24, 2016 15:38
--- NOTE | 2016-09-24 17:45 | PD.CONS ---
History of Present Illness Service Infectious disease Consult Requested By Dr Josh Cooley Reason for Consult Evaluate patient with positive blood culture with strep viridans Primary Care Physician Unknown Diagnoses: History of Present Illness Patient seen and examined. Records reviewed. Patient is a 56-year-old female, brought into the hospital after she was noted to have some left sided weakness. EMS was called, and while in the ambulance, she had 3 episodes of tonic-clonic seizures, and received Ativan. ED she was intubated for airway protection. 2 blood cultures done on admission, 1 out of the 2 was growing strep irritants. Recently hospitalized in July and at that time she was diagnosed to have PRESS syndrome with hypertensive encephalopathy. There was no other mention of any other symptoms as far as respiratory, GI or urinary complaints. Her WBC was 13,000. Urinalysis unremarkable. Chest x-ray on admission was clear. Her LFTs were normal. She was started on Levaquin on September 21. She had one day of fever on September 22. Patient was successfully extubated September 22, and has remained off the vent. She is on nasal O2. She still has problems with agitation, and she is on Precedex. Patient has not had any fever in the last 48 hours. During her last admission she had an echo and at that time there was no significant valvular abnormalities seen. Infectious disease consultation is requested to evaluate the patient for positive blood cultures Review of Systems ROS Limitations: Clinical Condition, Altered Mental Status Past Family Social History Allergies: Coded Allergies: No Known Allergies (Unverified , 08/11/15) Past Medical History DVT LE due to OCP when she was young Recent Dx PRESS, with HTN encephalopathy Past Surgical History None Active Ordered Medications Tylenol Albuterol Norvasc Lipitor Dulcolax Librium Precedex Pepcid Heparin Hydralazine Insulin Lactulose Keppra Levaquin Ativan MOM Magnesium MVI Folic acid Zofran Potassium [place]-Colace Senokot Family History Non- contributory to current ID problem Social History Smoker Drinks beer regularly No IVDU Physical Exam Vital Signs Vital Signs Date Time Temp Pulse Resp B/P Pulse Ox O2 Delivery O2 Flow Rate FiO2 09/24/16 12:00 94 38 151/94 97 09/24/16 12:00 94 09/24/16 11:00 90 39 156/94 97 09/24/16 10:03 90 45 158/103 98 09/24/16 10:00 91 09/24/16 09:01 100 48 172/90 97 09/24/16 08:05 100 35 09/24/16 08:04 96 Nasal Cannula 3.00 09/24/16 08:00 91 09/24/16 08:00 91 37 172/100 96 09/24/16 07:05 92 47 178/97 99 09/24/16 06:00 91 09/24/16 04:00 94 09/24/16 04:00 98.9 94 20 158/89 97 09/24/16 02:00 86 09/24/16 00:00 98.1 88 24 156/97 96 09/24/16 00:00 88 09/23/16 22:00 87 09/23/16 20:53 95 Nasal Cannula 3.00 09/23/16 20:00 103 09/23/16 20:00 97.8 103 24 163/112 95 09/23/16 18:00 93 Physical Exam GENERAL: Patient is a well-nourished, well-developed CF, lethargic, on precedex, opens eyes briefly and follows some commands, not in respiratory distress. SKIN: Warm and dry. No generalized rash, no ecchymoses and no evidence of embolic lesions. HEAD: Atraumatic. Normocephalic. No temporal wasting, or tenderness. EYES: [place] conjunctiva. No petechia or hemorrhage. Pupils equal, round and reactive to light. Extraocular movements full and intact. No scleral icterus. No injection or drainage. EARS, NOSE AND THROAT: Nose without bleeding or purulent nasal discharge. No sinus tenderness. Slightly dry oral mucosa. NECK: Trachea midline. Supple and not tender, no meningeal signs CARDIOVASCULAR: Regular rate and rhythm. No murmurs, rubs or gallops heard RESPIRATORY: Clear to auscultation. Breath sounds equal bilaterally. No rales , wheezing or rhonchi ABDOMEN: Soft, nondistended, did come grimacing during palpation on R side, but no guarding or rebound. Bowel sounds present and normoactive. No organomegaly. EXTREMITIES: No clubbing, cyanosis, or edema. No joint effusion, has good ROM. No calf tenderness. Well perfused and warm. NEUROLOGICAL: Opens eyes briefly when stimulated. Follow some commands. On Precedex PSYCHIATRIC: Unable to assess LINE: No evidence of infection Laboratory Laboratory Tests Test 09/24/16 01:35 White Blood Count 19.0 Red Blood Count 4.50 Hemoglobin 13.3 Hematocrit 39.9 Mean Corpuscular Volume 88.7 Mean Corpuscular Hemoglobin 29.6 Mean Corpuscular Hemoglobin 33.3 Concent Red Cell Distribution Width 14.6 Platelet Count 234 Mean Platelet Volume 7.1 Neutrophils (%) (Auto) 87.5 Lymphocytes (%) (Auto) 4.2 Monocytes (%) (Auto) 8.1 Eosinophils (%) (Auto) 0.0 Basophils (%) (Auto) 0.2 Neutrophils # (Auto) 16.6 Lymphocytes # (Auto) 0.8 Monocytes # (Auto) 1.5 Eosinophils # (Auto) 0.0 Basophils # (Auto) 0.0 CBC Comment DIFF FINAL Differential Comment Sodium Level 134 Potassium Level 2.8 Chloride Level 102 Carbon Dioxide Level 18.4 Anion Gap 14 Blood Urea Nitrogen 4 Creatinine 0.27 Estimat Glomerular Filtration 259 Rate Random Glucose 83 Calcium Level 8.3 Total Bilirubin 0.7 Aspartate Amino Transf 31 (AST/SGOT) Alanine Aminotransferase 17 (ALT/SGPT) Alkaline Phosphatase 71 Total Protein 6.5 Albumin 2.4 Date/Time Procedure Status Source Growth 09/22/16 03:57 Aerobic Blood Culture - Preliminary Resulted Blood Peripheral NO GROWTH IN 2 DAYS 09/22/16 03:57 Anaerobic Blood Culture - Preliminary Resulted Blood Peripheral NO GROWTH IN 2 DAYS 09/20/16 19:09 Aerobic Blood Culture - Final Resulted Blood Peripheral Viridans Streptococcus Grp 09/20/16 19:09 Anaerobic Blood Culture - Preliminary Resulted Blood Peripheral NO GROWTH IN 4 DAYS 09/20/16 09:50 Urine Culture - Final Complete Urine Catheterized Urine Lactobacillus Species Result Diagram: 09/24/16 0135 09/24/16 0135 Imaging RADIOLOGY STUDIES/FILMS REVIEWED Chest X-Ray 09/20/16 0956 Signed Impressions: Service Date/Time: Tuesday, September 20, 2016 10:02 - CONCLUSION: Support apparatus in good position. Lungs are clear. Car Moseley MD FACR Head CT 09/20/16 0000 Signed Impressions: Service Date/Time: Tuesday, September 20, 2016 10:38 - CONCLUSION: Negative for an acute process. Car Moseley MD FACR Brain MRI 09/20/16 0000 Signed Impressions: Service Date/Time: Tuesday, September 20, 2016 13:58 - CONCLUSION: 1. No acute intracranial abnormality. 2. Fluid within the left mastoid air cells raising the possibility of left-sided mastoiditis. Clinical correlation is recommended. Roger Zamora MD Assessment and Plan Assessment and Plan IMPRESSION One (+) BC with Strep viridans, ?significance Seizure felt to be ETOH withdrawal seizure Respiratory failure S/P extubation - intubated for airway when she had SZ Worsening leukocytosis RECOMMENDATION Follow repeat BC Change Levaquin to Rocephin UA and C/S CXR tomorrow Will decide on Abx once work-up is completed Monitor progress I will follow along with you Thank you for this consultation Martha Garcia MD Sep 24, 2016 17:44
[2016-09-24] MEDS: cefTRIAXone INJ 2,000 MG in SODIUM CHLORIDE 0.9% INJ 100 ML IV SCH (18:34)
[2016-09-24] MEDS: ATORVASTATIN 20 MG TAB PO SCH (20:17)
[2016-09-24 20:30] LABS: BACTERIA, URINE OCC /hpf; BLOOD, URINE NEG (NEG); COMMENT (UR) CATH-CULTURE IND; CULTURE IF INDICATED CATH CULTURE IND; GLUCOSE,URINE NEG (NEG); KETONE, URINE 150 mg/dL (NEG); MUCUS URINE FEW /lpf (OCC); NITRITE,URINE NEG (NEG); URINE COLOR YELLOW (YELLW/STRAW)
[2016-09-24] MEDS: CHLORHEXIDINE GLUCONATE 2 % 1 PACK (2 CLOTHS) TOP SCH (23:04)
[2016-09-25] VITALS (29 sets, daily range): BP systolic 127–176; BP diastolic 86–107; PULSE 81–108; RESP 30–56; TEMP 97.5–98.8; O2SAT 94–99
[2016-09-25] MEDS: POTASSIUM CHLOR 20 MEQ PREMIX 100 ML IV PRN ×2 (00:28→02:24)
[2016-09-25] MEDS: SODIUM CHLOR 0.9% 1000 ML INJ 1,000 ML IV SCH ×2 (02:27→11:20)
[2016-09-25] MEDS: LABETALOL HCL 100 MG/20 ML VIAL IV PUSH PRN ×2 (03:34→08:44)
--- NOTE | 2016-09-25 04:14 | RADRPT ---
EXAM DATE/TIME: 09/25/2016 03:07 [facility] COMPARISON: CHEST SINGLE AP, September 20, 2016, 10:02. INDICATIONS : Shortness of breath MEDICAL HISTORY : None. SURGICAL HISTORY : None. ENCOUNTER: Subsequent ACUITY: 4 - 6 days PAIN SCORE: Non-responsive. LOCATION: Bilateral chest FINDINGS: A single AP portable erect view of the chest was obtained. The patient has been extubated and the tory ogastric tube has been removed. There is new hazy opacity at both lung bases left greater than right. Portions of the left hemidiaphragm are obscured. Left costophrenic angle there is mildly blunted. Th e heart size is within normal limits with multiple overlying electrocardiogram leads. The bony thorax is intact. CONCLUSION: 1. Interval extubation and removal nasogastric tube. 2. New opacity at both lung bases left greater than right. This may represent infiltrate and/or effus ion. Valentino Epstein MD on September 25, 2016 at 4:11 Board Certified Radiologist. This report was verified electronically.
[2016-09-25] MEDS: LORazepam 2 MG/ML VIAL IV PUSH PRN ×3 (04:59→23:54)
[2016-09-25 06:17] LABS: AUTOMATED NEUTROPHIL # 13.8 TH/MM3 (1.8-7.7); BASOPHIL % 0.2 % (0.0-2.0); EOSINOPHIL % 0.1 % (0.0-4.0); HEMATOCRIT 38.5 % (35.0-46.0); HEMO FLAGS DIFF FINAL; LYMPH % 6.4 % (9.0-44.0); LYMPHOCYTE # 1.1 TH/MM3 (1.0-4.8); MEAN CELL VOLUME 87.3 FL (80.0-100.0); MEAN CORPUSCULAR HEMOGLOBIN 29.3 PG (27.0-34.0); MEAN CORPUSCULAR HGB CONC 33.6 % (32.0-36.0); MONO % 9.2 % (0.0-8.0); NEUT % 84.1 % (16.0-70.0); PLATELET COUNT 297 TH/MM3 (150-450); RED BLOOD COUNT 4.42 MIL/MM3 (4.00-5.30); RED CELL DISTRIBUTION WIDTH 14.7 % (11.6-17.2); WHITE BLOOD COUNT 16.4 TH/MM3 (4.0-11.0)
[2016-09-25 06:43] LABS: ALT (GPT) 14 U/L (10-53); ANION GAP 12 MEQ/L (5-15); AST (GOT) 18 U/L (15-37); BICARBONATE 18.2 MEQ/L (21.0-32.0); BLOOD UREA NITROGEN 5 MG/DL (7-18); CHLORIDE 102 MEQ/L (98-107); GLOMERULAR FILTRATION RATE 270 ML/MIN (>89); MAGNESIUM 1.5 MG/DL (1.5-2.5); POTASSIUM 3.5 MEQ/L (3.5-5.1); SODIUM (NA) 132 MEQ/L (136-145)
[2016-09-25 06:44] LABS: ALKALINE PHOSPHATASE 62 U/L (45-117); TOTAL BILIRUBIN ADULT 0.4 MG/DL (0.2-1.0)
[2016-09-25] MEDS: INSULIN ASPART SUPPLEMENTAL SCALE SQ SCH ×4 (07:00→21:00)
[2016-09-25] MEDS: CHLORHEXIDINE 0.12% (ORAL KIT) 15 ML CUP MT SCH ×2 (07:06→20:00)
[2016-09-25] MEDS: levETIRAcetam 1000 MG INJ 100 ML IV SCH ×2 (08:16→22:52)
[2016-09-25] MEDS: FAMOTIDINE 20 MG/2 ML VIAL IV PUSH SCH ×2 (08:16→22:51)
[2016-09-25] MEDS: SODIUM CHLORIDE 0.9% FLUSH 10 ML FLUSH IV FLUSH SCH ×2 (08:16→21:00)
[2016-09-25] MEDS: ARTIFICIAL TEARS OPTH SOLN 15 ML BTL EACH EYE SCH ×3 (08:16→17:53)
[2016-09-25] MEDS: chlordiazePOXIDE 25 MG CAP PO SCH ×2 (08:16→22:51)
[2016-09-25] MEDS: HEPARIN SODIUM - SQ 10,000 UNITS/ML VIAL SQ SCH ×2 (08:17→22:51)
[2016-09-25] MEDS: DOCUSATE SODIUM 50 MG/SENNA 8.6 MG TAB PO SCH ×2 (08:17→22:51)
[2016-09-25] MEDS: METOPROLOL TARTRATE 25 MG TAB PO SCH (08:17)
--- NOTE | 2016-09-25 12:31 | HHI.CCPN ---
Subjective Remarks/Hospital Course 09/20: This is a 56-year-old female that presented to the ED in respiratory distress. Per ED report the patient was noted to have left-sided left hemiplegia, last witnessed movement at 12 midnight per report. EMS was called, enroute the patient subsequently had 3 witnessed tonic-clonic seizures and received Ativan 2 mg. Upon arrival to ED, the patient was intubated for airway protection. No further seizure activity was noted, the patient was placed on a propofol infusion. Imaging studies were performed CT was negative, urine tox screen was noted to have cannabis and positive for urine opiates(the patient was on morphine ER at home). Patient's medical history is significant for PRES syndrome, and the patient was recently admitted to the hospital 07/26/15. At that time the patient's MRI revealed restricted diffusion in the right posterior parietal lobe and cerebral edema. The patient was notably hyponatremic at that time and presents today with a sodium level 134. Critical care medicine is consulted for management. 09/21: Remains sedated, orally intubated on mechanical ventilation. On propofol/ fentanyl and Precedex and still wakes up and gets agitated. 09/22: Awake and alert, orally intubated on mechanical ventilation on multiple sedatives and Precedex. Receiving Ativan for alcohol withdrawal. 09/23: Extubated on 09/22 to nasal cannula. Significant agitation requiring Precedex gtt. and Ativan IV due to alcohol withdrawal. 09/24: Remains on nasal cannula. Still requiring significant Ativan for alcohol withdrawal. Precedex titrated off. Drowsy, arousable. Remains disoriented. 09/25: Lethargic but easily arousable. The patient continues on Ativan or hours via CIWA protocol. Noted chest x-ray bilateral opacities in lung bases. Urine culture lactobacillus, leukocytosis resolving. Plan for formal swallow study to advance diet. Patient appropriately responding to questions. Objective Vital Signs Date Time Temp Pulse Resp B/P Pulse Ox O2 Delivery O2 Flow Rate FiO2 09/25/16 11:00 94 42 140/94 96 09/25/16 08:00 98.6 09/24/16 19:46 Nasal Cannula 3.00 09/24/16 08:05 35 Intake and Output 09/24/16 09/24/16 09/25/16 08:00 16:00 00:00 Intake Total 819 ml 1118 ml 1075 ml Output Total 900 ml 1825 ml 600 ml Balance -81 ml -707 ml 475 ml Result Diagram: 09/25/16 0610 09/25/16 0610 Imaging Last Impressions Chest X-Ray 09/25/16 0600 Signed Impressions: Service Date/Time: September 03:07 - CONCLUSION: 1. Interval extubation and removal nasogastric tube. 2. New opacity at both lung bases left greater than right. This may represent infiltrate and/or effusion. Valentino Epstein MD Head CT 09/20/16 0000 Signed Impressions: Service Date/Time: Tuesday, September 20, 2016 10:38 - CONCLUSION: Negative for an acute process. Car Moseley MD FACR Brain MRI 09/20/16 0000 Signed Impressions: Service Date/Time: Tuesday, September 20, 2016 13:58 - CONCLUSION: 1. No acute intracranial abnormality. 2. Fluid within the left mastoid air cells raising the possibility of left-sided mastoiditis. Clinical correlation is recommended. Roger Zamora MD Last Impressions Chest X-Ray 09/20/16 0956 Signed Impressions: Service Date/Time: Tuesday, September 20, 2016 10:02 - CONCLUSION: Support apparatus in good position. Lungs are clear. Car Moseley MD FACR Head CT 09/20/16 0000 Signed Impressions: Service Date/Time: Tuesday, September 20, 2016 10:38 - CONCLUSION: Negative for an acute process. Car Moseley MD FACR Objective Remarks GENERAL: Well-developed well-nourished female laying in bed, drowsy, easily arousable, oriented SKIN: Warm and dry. HEAD: Atraumatic. Normocephalic. EYES: Pupils equal and round. No scleral icterus. No injection or drainage. ENT: No nasal bleeding or discharge. Mucous membranes pink and moist. NECK: Trachea midline. No JVD. CARDIOVASCULAR: Normal rate, regular rhythm. RESPIRATORY:Clear to auscultation. Breath sounds equal bilaterally. Tachypneic. GASTROINTESTINAL: Abdomen soft, non-tender, nondistended. No guarding. MUSCULOSKELETAL: Extremities without clubbing, cyanosis, or edema. No obvious deformities. NEUROLOGICAL: Drowsy, easily arousable, oriented and compliant Opens eyes and moves all 4 extremities A/P Assessment and Plan Plan by systems: Neurologic: Toxic/metabolic encephalopathy Seizure disorder EtOH abuse PRES Syndrome Left Hemiplegia? -Neurology consult-on previous admission patient seen by Dr. Hatch -Patient loaded with Dilantin in ED -Obtain Keppra level(home medications include 1 g twice a day) -Continue Keppra 1 g twice a day -History of consumption of alcohol reportedly one 6 pack of beer/day-seizure precautions -Follow up EEG -MVI, thiamine and folate infusion 5 days then convert to by mouth Continue [facility] protocol for alcohol withdrawal with Ativan when necessary. Increase librium 50mg via OGT/ PO [id number] on 09/23 however not ready for by mouth due to concern for aspiration. - Precedex for alcohol withdrawal dc'd 09/24. Ordered Geodon 20 mg IM 1 dose on 09/23. Ativan 4 mg IV every 4 hours per [facility] protocol -Neurochecks per ICU protocol Respiratory: Acute respiratory failure -Extubated 09/22. On nasal cannula -Maintain O2 sat greater than 92% -DuoNeb nebs every 6 hours scheduled and every 2 hours when necessary -09/25 CXR B/L infiltrate Cardiovascular: Hypertension Hyperlipidemia -Maintain MAP greater than 65 mmHg -Continue home medications metoprolol 25 mg/day, amlodipine 10 mg/day, labetalol PRN -Continue Atorvastatin Renal: Insert Ash -- Strict I/Os FEN/GI: Hyponatremia, chronic? -Admission sodium level 134, monitor BMP -Normal saline 84 cc/hour -Obtain Speech swallow eval to decide by mouth intake, and advance diet -Zofran for nausea -Protonix for GI prophylaxis Heme/ID: Leukocytosis -Blood culture with strep viridans on 09/20. Antibiotics per ID recommendations 2-D echo ordered to evaluate for vegetations. Consulted ID for further evaluation of strep viridans bacteremia, Dr. Garcia. Urine culture- lactobacillus Endocrine: Hyperglycemia of critical illness Glucose monitoring per ICU protocol TSH level- WNL -- SSI Prophylaxis: GI Prophylaxis Protonix DVT Prophylaxis -- SCDs SQ heparin 09/21 Lines: Peripheral IVs 2. Central line if indicated Dispo: Level 2 Discussed with PERINATOLOGY PHYSICIAN at bedside. Physician Meri Russell MD Sep 25, 2016 12:31
--- NOTE | 2016-09-25 15:35 | HHI.IDPN ---
Subjective Subjective Remarks Patient is a 56-year-old female, brought into the hospital after she was noted to have some left sided weakness. EMS was called, and while in the ambulance, she had 3 episodes of tonic-clonic seizures, and received Ativan. ED she was intubated for airway protection. 2 blood cultures done on admission, 1 out of the 2 was growing strep irritants. Recently hospitalized in July and at that time she was diagnosed to have PRESS syndrome with hypertensive encephalopathy. There was no other mention of any other symptoms as far as respiratory, GI or urinary complaints. Her WBC was 13,000. Urinalysis unremarkable. Chest x-ray on admission was clear. Her LFTs were normal. She was started on Levaquin on September 21. She had one day of fever on September 22. Patient was successfully extubated September 22, and has remained off the vent. She is on nasal O2. She still has problems with agitation, and she is on Precedex. Patient has not had any fever in the last 48 hours. During her last admission she had an echo and at that time there was no significant valvular abnormalities seen. Notes reviewed Temps ok MOre awake today Has a very weak cough CXR now with basilar opacitis She has been (+), and now has just been diuresing UA ok WBC lower No new (+) BC Antibiotics Rocephin Past Medical History DVT LE due to OCP when she was young Recent Dx PRESS, with HTN encephalopathy Allergies: Coded Allergies: No Known Allergies (Unverified , 08/11/15) Objective . Vital Signs Date Time Temp Pulse Resp B/P Pulse Ox O2 Delivery O2 Flow Rate FiO2 09/25/16 14:00 94 09/25/16 14:00 99 45 159/94 95 09/25/16 13:00 95 39 156/98 95 09/25/16 12:00 100 09/25/16 12:00 98.8 92 46 144/96 95 09/25/16 11:00 94 42 140/94 96 09/25/16 10:00 88 56 152/97 97 09/25/16 10:00 88 09/25/16 09:00 89 39 152/95 96 09/25/16 08:00 98.6 89 40 166/100 97 09/25/16 08:00 89 09/25/16 07:00 86 43 169/103 97 09/25/16 06:30 84 45 162/99 97 09/25/16 06:00 81 44 154/95 97 09/25/16 06:00 81 09/25/16 05:30 88 42 173/87 97 09/25/16 05:00 90 33 154/97 96 09/25/16 04:30 83 36 165/101 98 09/25/16 04:00 84 09/25/16 04:00 84 34 159/99 98 09/25/16 04:00 98.5 84 38 159/99 98 09/25/16 03:30 162/100 09/25/16 03:30 94 36 162/100 99 09/25/16 03:00 100 35 151/95 97 09/25/16 02:30 97 34 170/107 97 09/25/16 02:00 92 51 168/98 98 09/25/16 02:00 92 09/25/16 01:30 92 49 176/105 98 09/25/16 01:00 93 50 160/98 97 09/25/16 00:30 93 42 163/101 98 09/25/16 00:21 93 46 163/101 99 09/25/16 00:00 97.5 94 30 160/104 99 09/25/16 00:00 94 38 162/104 99 09/25/16 00:00 94 09/25/16 00:00 94 38 162/104 99 09/24/16 23:32 94 39 157/96 99 09/24/16 23:30 91 35 165/104 99 09/24/16 23:00 103 43 132/90 97 09/24/16 22:30 98 48 151/100 98 09/24/16 22:00 96 09/24/16 22:00 96 49 155/87 98 09/24/16 21:30 97 43 144/90 97 09/24/16 21:00 95 38 160/96 98 09/24/16 20:30 104 40 148/92 98 09/24/16 20:00 98.3 99 48 147/95 97 09/24/16 20:00 99 09/24/16 20:00 99 48 147/95 97 09/24/16 19:46 97 Nasal Cannula 3.00 09/24/16 18:00 95 09/24/16 17:00 104 45 158/95 96 09/24/16 16:00 104 09/24/16 16:00 104 44 149/95 97 09/24/16 09/24/16 09/25/16 15:00 23:00 07:00 Intake Total 1118 ml 1075 ml 1345 ml Output Total 1825 ml 600 ml 1200 ml Balance -707 ml 475 ml 145 ml Intake Oral 0 ml 30 ml IV Total 1118 ml 1075 ml 1315 ml Output Urine Total 1825 ml 600 ml 1200 ml # Bowel Movements 1 2 . Laboratory Tests Test 09/24/16 09/25/16 01:35 06:10 White Blood Count 19.0 TH/MM3 16.4 TH/MM3 Red Blood Count 4.50 MIL/MM3 4.42 MIL/MM3 Hemoglobin 13.3 GM/DL 13.0 GM/DL Hematocrit 39.9 % 38.5 % Mean Corpuscular Volume 88.7 FL 87.3 FL Mean Corpuscular Hemoglobin 29.6 PG 29.3 PG Mean Corpuscular Hemoglobin 33.3 % 33.6 % Concent Red Cell Distribution Width 14.6 % 14.7 % Platelet Count 234 TH/MM3 297 TH/MM3 Mean Platelet Volume 7.1 FL 6.6 FL Neutrophils (%) (Auto) 87.5 % 84.1 % Lymphocytes (%) (Auto) 4.2 % 6.4 % Monocytes (%) (Auto) 8.1 % 9.2 % Eosinophils (%) (Auto) 0.0 % 0.1 % Basophils (%) (Auto) 0.2 % 0.2 % Neutrophils # (Auto) 16.6 TH/MM3 13.8 TH/MM3 Lymphocytes # (Auto) 0.8 TH/MM3 1.1 TH/MM3 Monocytes # (Auto) 1.5 TH/MM3 1.5 TH/MM3 Eosinophils # (Auto) 0.0 TH/MM3 0.0 TH/MM3 Basophils # (Auto) 0.0 TH/MM3 0.0 TH/MM3 CBC Comment DIFF FINAL DIFF FINAL Differential Comment Laboratory Tests Test 09/24/16 09/24/16 09/25/16 01:35 18:47 06:10 Sodium Level 134 MEQ/L 132 MEQ/L Potassium Level 2.8 MEQ/L 2.9 MEQ/L 3.5 MEQ/L Chloride Level 102 MEQ/L 102 MEQ/L Carbon Dioxide Level 18.4 MEQ/L 18.2 MEQ/L Anion Gap 14 MEQ/L 12 MEQ/L Blood Urea Nitrogen 4 MG/DL 5 MG/DL Creatinine 0.27 MG/DL 0.26 MG/DL Estimat Glomerular Filtration 259 ML/MIN 270 ML/MIN Rate Random Glucose 83 MG/DL 89 MG/DL Calcium Level 8.3 MG/DL 8.2 MG/DL Total Bilirubin 0.7 MG/DL 0.4 MG/DL Aspartate Amino Transf 31 U/L 18 U/L (AST/SGOT) Alanine Aminotransferase 17 U/L 14 U/L (ALT/SGPT) Alkaline Phosphatase 71 U/L 62 U/L Total Protein 6.5 GM/DL 6.2 GM/DL Albumin 2.4 GM/DL 2.3 GM/DL Lactic Acid Level 0.7 mmol/L Magnesium Level 1.5 MG/DL Microbiology Date/Time Procedure Status Source Growth 09/24/16 18:45 Urine Culture - Preliminary Resulted Urine Catheterized Urine NO GROWTH IN 24 HOURS. Imaging Last Impressions Chest X-Ray 09/25/16 0600 Signed Impressions: Service Date/Time: September 03:07 - CONCLUSION: 1. Interval extubation and removal nasogastric tube. 2. New opacity at both lung bases left greater than right. This may represent infiltrate and/or effusion. Valentino Epstein MD Head CT 09/20/16 0000 Signed Impressions: Service Date/Time: Tuesday, September 20, 2016 10:38 - CONCLUSION: Negative for an acute process. Car Moseley MD FACR Brain MRI 09/20/16 0000 Signed Impressions: Service Date/Time: Tuesday, September 20, 2016 13:58 - CONCLUSION: 1. No acute intracranial abnormality. 2. Fluid within the left mastoid air cells raising the possibility of left-sided mastoiditis. Clinical correlation is recommended. Roger Zamora MD Physical Exam GENERAL: awake and alert, weak, NAD SKIN: Warm and dry. No generalized rash, no ecchymoses and no evidence of embolic lesions. HEAD: Atraumatic. Normocephalic. No temporal wasting, or tenderness. EYES: [place] conjunctiva. No petechia or hemorrhage. Extraocular movements full and intact. No scleral icterus. No injection or drainage. EARS, NOSE AND THROAT: Nose without bleeding or purulent nasal discharge. No sinus tenderness. Slightly dry oral mucosa. NECK: Trachea midline. Supple and not tender, no meningeal signs CARDIOVASCULAR: Regular rate and rhythm. No murmurs, rubs or gallops heard RESPIRATORY: Clear to auscultation, but decreased at bases. ABDOMEN: Soft, nondistended, not tender, no guarding or rebound. Bowel sounds present and normoactive. No organomegaly. EXTREMITIES: No clubbing, cyanosis, or edema. No joint effusion, has good ROM. No calf tenderness. Well perfused and warm. NEUROLOGICAL: Awake and alert, following commands PSYCHIATRIC: Cooperative LINE: No evidence of infection Assessment & Plan Remarks IMPRESSION One (+) BC with Strep viridans, ?significance Seizure felt to be ETOH withdrawal seizure Respiratory failure S/P extubation - intubated for airway when she had SZ Worsening leukocytosis, better - has bibasilar opacities, ?effusions RECOMMENDATION Follow repeat BC Continue Rocephin Will decide on Abx once work-up is completed Monitor progress D/W Martha Renee MD Sep 25, 2016 15:35
--- NOTE | 2016-09-25 16:14 | ECHRPT ---
Indication: Evaluate for vegetations CONCLUSIONS The left ventricular systolic function is low normal with an estimated ejection fraction in the rang e of 55- 60%. Wall thickness is normal. Normal left ventricular size. BP: 159 / 99 HR: 84 Rhythm: Sinus MEASUREMENTS (Male / Female) Normal Values Technical Quality:Good 2D ECHO LV Diastolic Diameter PLAX 3.9 cm 4.2 - 5.9 / 3.9 - 5.3 cm LV Systolic Diameter PLAX 2.9 cm IVS Diastolic Thickness 0.8 cm 0.6 - 1.0 / 0.6 - 0.9 cm LVPW Diastolic Thickness 0.8 cm 0.6 - 1.0 / 0.6 - 0.9 cm LV Relative Wall Thickness 0.4 RV Internal Dim ED PLAX 1.7 cm LVOT Diameter 2.0 cm LA Systolic Diameter LX 3.5 cm 3.0 - 4.0 / 2.7 - 3.8 cm M-MODE Aortic Root Diameter MM 3.0 cm AV Cusp Separation MM 1.7 cm DOPPLER AV Peak Velocity 196.3 cm/s AV Peak Gradient 15.4 mmHg AV Mean Gradient 8.5 mmHg AV Velocity Time Integral 38.3 cm LVOT Peak Velocity 199.0 cm/s LVOT Peak Gradient 15.8 mmHg AV Area Cont Eq pk 3.2 cm Mitral E Point Velocity 83.4 cm/s Mitral A Point Velocity 103.0 cm/s Mitral E to A Ratio 0.8 LV E' Lateral Velocity 7.0 cm/s Mitral E to LV E' Lateral Ratio 11.9 LV E' Septal Velocity 14.2 cm/s Mitral E to LV E' Septal Ratio 5.9 FINDINGS LEFT VENTRICLE The left ventricular systolic function is low normal with an estimated ejection fraction in the rang e of 55- 60%. Wall thickness is normal. Normal left ventricular size. RIGHT VENTRICLE Normal right ventricular size and systolic function. LEFT ATRIUM The left atrial size is normal. RIGHT ATRIUM The right atrial size is normal. ATRIAL SEPTUM Normal atrial septal thickness without atrial level shunting by limited color doppler interrogation. AORTA The aortic root and proximal ascending aorta are normal in size on limited imaging. MITRAL VALVE Structurally normal mitral valve. No mitral valve stenosis or regurgitation. AORTIC VALVE Trileaflet aortic valve. No aortic valve stenosis or regurgitation. TRICUSPID VALVE Structurally normal tricuspid valve. No tricuspid valve stenosis or regurgitation. PULMONARY VALVE The pulmonary valve is not well visualized. VESSELS The inferior vena cava is normal in size. PERICARDIUM No pericardial effusion. Jesse Bruce MD, FACC (Electronically Signed) Final Date:25 September 2016 16:13
[2016-09-25] MEDS: cefTRIAXone INJ 2,000 MG in SODIUM CHLORIDE 0.9% INJ 100 ML IV SCH (17:53)
[2016-09-25] MEDS: ATORVASTATIN 20 MG TAB PO SCH (22:54)
[2016-09-26] VITALS (20 sets, daily range): BP systolic 133–182; BP diastolic 93–105; PULSE 84–121; RESP 25–43; TEMP 98.2–98.8; O2SAT 95–99
[2016-09-26] MEDS: SODIUM CHLOR 0.9% 1000 ML INJ 1,000 ML IV SCH ×2 (00:05→13:25)
[2016-09-26] MEDS: LORazepam 2 MG/ML VIAL IV PUSH PRN ×5 (03:05→16:34)
[2016-09-26] MEDS: CHLORHEXIDINE GLUCONATE 2 % 1 PACK (2 CLOTHS) TOP SCH (04:00)
[2016-09-26] MEDS: INSULIN ASPART SUPPLEMENTAL SCALE SQ SCH ×4 (06:31→21:00)
[2016-09-26 06:57] LABS: HEMATOCRIT 41.3 % (35.0-46.0); MEAN CELL VOLUME 87.2 FL (80.0-100.0); MEAN CORPUSCULAR HEMOGLOBIN 30.1 PG (27.0-34.0); MEAN CORPUSCULAR HGB CONC 34.6 % (32.0-36.0); PLATELET COUNT 338 TH/MM3 (150-450); RED BLOOD COUNT 4.74 MIL/MM3 (4.00-5.30); RED CELL DISTRIBUTION WIDTH 14.8 % (11.6-17.2); REVIEW FLAG FINAL; WHITE BLOOD COUNT 15.8 TH/MM3 (4.0-11.0)
[2016-09-26 07:34] LABS: BICARBONATE 19.8 MEQ/L (21.0-32.0); MAGNESIUM 1.7 MG/DL (1.5-2.5)
[2016-09-26] MEDS: POTASSIUM CHLOR 20 MEQ PREMIX 100 ML IV PRN ×4 (07:56→14:25)
[2016-09-26] MEDS: CHLORHEXIDINE 0.12% (ORAL KIT) 15 ML CUP MT SCH ×2 (07:57→20:00)
[2016-09-26] MEDS: levETIRAcetam 1000 MG INJ 100 ML IV SCH ×2 (08:08→21:21)
[2016-09-26] MEDS: ARTIFICIAL TEARS OPTH SOLN 15 ML BTL EACH EYE SCH (08:08)
[2016-09-26] MEDS: DOCUSATE SODIUM 50 MG/SENNA 8.6 MG TAB PO SCH ×2 (08:09→21:00)
[2016-09-26] MEDS: HEPARIN SODIUM - SQ 10,000 UNITS/ML VIAL SQ SCH ×2 (08:09→21:22)
[2016-09-26] MEDS: chlordiazePOXIDE 25 MG CAP PO SCH ×2 (08:09→21:21)
[2016-09-26] MEDS: METOPROLOL TARTRATE 25 MG TAB PO SCH ×2 (08:09→21:21)
[2016-09-26] MEDS: SODIUM CHLORIDE 0.9% FLUSH 10 ML FLUSH IV FLUSH SCH ×2 (08:10→21:29)
--- NOTE | 2016-09-26 08:10 | HHI.PR ---
Review/Management Diagnosis/Plan: (1) Seizure Plan: ? etiology probable etoh withdrawal. per rn, pt heavy drinker. on chronic opiods eeg- no active sz's recs on etoh withdrawal protocol lighten sedation and tx to 5th floor with tele will follow peripherally no driving/climbing heights/swimming alone or operating any dangerous machinery d/w rn (2) Encephalopathy acute Plan: improved mri brain nml (3) Chronic pain Subjective Subjective Comments No acute events reported No headache No chest pain No dyspnea Active Medications Current Medications Medications (Trade) Dose Ordered Sig/Snoja Route Start Time Stop Time Status Last Admin Sodium Chloride 2 ml 2 ml UNSCH PRN IVF 09/20/16 10:00 (NS 1000 ml Inj) 1,000 ml @ 84 mls/hr [id number] IV 09/20/16 13:00 09/26/16 00:05 (NS Flush) 2 ml BID IV FLUSH 09/20/16 21:00 09/25/16 08:16 (Tylenol) 650 mg Q6H PRN PO 09/20/16 12:15 09/22/16 05:42 (Pepcid Inj) 20 mg Q12HR IV PUSH 09/20/16 21:00 09/25/16 22:51 (Tears Naturale Opth Soln) 1 drop TID EACH EYE 09/20/16 13:00 09/25/16 17:53 (Zofran Inj) 4 mg Q6H PRN IV 09/20/16 12:15 Miscellaneous Information 1 [id number] XX 09/20/16 12:15 09/20/16 12:15 (Chlorhexidine 2% Cloth) Taper DAILY@04 TOP 09/21/16 04:00 09/17/17 03:59 09/26/16 04:00 (Eileen-Colace) 1 tab BID PO 09/20/16 21:00 09/25/16 22:51 (Milk Of Magnesia Liq) 30 ml Q12H PRN PO 09/20/16 12:15 (Senokot) 17.2 mg Q12H PRN PO 09/20/16 12:15 (Dulcolax Supp) 10 mg DAILY PRN RECTAL 09/20/16 12:15 (Lactulose Liq) 30 ml DAILY PRN PO 09/20/16 12:15 Chlorhexidine Gluconate 15 ml 15 ml BID@08,20 MT 09/20/16 20:00 09/23/16 20:33 (Keppra 1000 Mg Inj) 100 ml @ 400 mls/hr Q12HR IV 09/20/16 21:00 09/25/16 22:52 (Norvasc) 10 mg DAILY PO 09/21/16 09:00 09/25/16 08:17 (Lipitor) 20 mg HS PO 09/20/16 21:00 09/25/16 22:54 (Lopressor) 25 mg DAILY PO 09/21/16 09:00 09/25/16 08:17 (Apresoline Inj) 20 mg Q4H PRN IV PUSH 09/20/16 13:15 (D50w (Vial) Inj) 50 ml UNSCH PRN IV 09/20/16 16:15 (Glucagon Inj) 1 mg UNSCH PRN OTHER 09/20/16 16:15 (Ativan Inj) 2 mg Q2H PRN IV PUSH 09/21/16 12:45 09/26/16 04:16 (Romazicon Inj) 0.2 mg Q1M PRN IV PUSH 09/21/16 12:45 (Ativan) 1 mg Q4H PRN PO 09/21/16 12:45 (Ativan Inj) 1 mg Q4H PRN IV PUSH 09/21/16 12:45 09/25/16 08:00 (Ativan) 2 mg Q2H PRN PO 09/21/16 12:45 (Ativan Inj) 2 mg Q2H PRN IV PUSH 09/21/16 12:45 09/26/16 07:21 (Ativan Inj) 2 mg Q1H PRN IV PUSH 09/21/16 12:45 09/24/16 23:04 (Ativan Inj) 2 mg Q15M PRN IV PUSH 09/21/16 12:45 09/24/16 08:56 Heparin Sodium (Porcine) 5000 units 5,000 units BID SQ 09/21/16 21:00 09/25/16 22:51 Potassium Chloride 100 ml @ 50 mls/hr Q2H PRN IV 09/22/16 05:30 (KCl 20 Meq Premix Inj) 100 ml @ 50 mls/hr Q2H PRN IV 09/22/16 05:30 09/26/16 07:56 Potassium Bicarb/ Potassium Chloride 50 meq 50 meq UNSCH PRN PO 09/22/16 05:30 Potassium Chloride 100 ml @ 25 mls/hr UNSCH PRN IV 09/22/16 05:30 Potassium Chloride 100 ml @ 50 mls/hr Q2H PRN IV 09/22/16 05:30 (Magnesium Sulfate Inj/NS Inj) 100 ml @ 50 mls/hr UNSCH PRN IV 09/22/16 05:30 Magnesium Oxide 800 mg 800 mg UNSCH PRN PO 09/22/16 05:30 (Magnesium Sulfate Inj/NS Inj) 100 ml @ 50 mls/hr UNSCH PRN IV 09/22/16 05:30 Potassium Phosphate 2000 mg 2,000 mg Q4H PRN PO 09/22/16 05:30 (Sodium Phosphate Inj/NS 250 ml Inj) 250 ml @ 42 mls/hr UNSCH PRN IV 09/22/16 05:30 Potassium Phosphate 2000 mg 2,000 mg UNSCH PRN PO/TUBE 09/22/16 05:30 (Potassium Phosphate Inj/NS 250 ml Inj) 260 ml @ 42 mls/hr UNSCH PRN IV 09/22/16 05:30 Chlordiazepoxide 50 mg 50 mg Q12HR PO 09/23/16 21:00 09/25/16 22:51 (Rocephin Inj/NS Inj) 100 ml @ 200 mls/hr Q24H IV 09/24/16 18:00 09/25/16 17:53 (Trandate Inj) 10 mg Q4H PRN IV PUSH 09/25/16 02:45 09/25/16 08:44 Allergies Allergies Coded Allergies No Known Allergies (Unverified08/11/15) Review of Systems All other ROS: ROS reviewed as documented in chart Exam I&O / VS 09/25/16 09/25/16 09/26/16 15:00 23:00 07:00 Intake Total 633 ml 1333 ml 136 ml Output Total 950 ml 1450 ml 400 ml Balance -317 ml -117 ml -264 ml IV Total 633 ml 1333 ml 136 ml Output Urine Total 950 ml 1450 ml 400 ml # Bowel Movements 1 1 Vital Signs Date Time Temp Pulse Resp B/P Pulse Ox O2 Delivery O2 Flow Rate FiO2 09/26/16 06:00 85 09/26/16 04:00 112 09/26/16 04:00 98.5 112 41 153/101 98 09/26/16 02:00 112 09/26/16 00:00 98.4 91 33 157/99 96 09/26/16 00:00 91 09/25/16 22:00 104 09/25/16 21:20 96 21 09/25/16 20:00 98.6 108 48 155/99 94 09/25/16 20:00 108 09/25/16 18:00 101 09/25/16 16:00 98.2 103 48 150/95 94 09/25/16 16:00 103 09/25/16 15:00 104 36 127/86 95 09/25/16 14:00 94 09/25/16 14:00 99 45 159/94 95 09/25/16 13:00 95 39 156/98 95 09/25/16 12:00 100 09/25/16 12:00 98.8 92 46 144/96 95 09/25/16 11:00 94 42 140/94 96 09/25/16 10:00 88 56 152/97 97 09/25/16 10:00 88 09/25/16 09:00 89 39 152/95 96 Exam Comments mildly drowsy, ox 1, not to place or date, able to give address, pres Trump, follows with all 4 ext, eomi, ou 3-2mm, moves distal ext, in restraints Objective Micro and Labs Laboratory Tests Test 09/26/16 09/26/16 06:11 06:22 Sodium Level 132 Potassium Level 3.0 Chloride Level 100 Carbon Dioxide Level 19.8 Anion Gap 12 Blood Urea Nitrogen 4 Creatinine 0.30 Estimat Glomerular Filtration 229 Rate Random Glucose 80 Calcium Level 8.0 Phosphorus Level 1.7 Magnesium Level 1.7 White Blood Count 15.8 Red Blood Count 4.74 Hemoglobin 14.3 Hematocrit 41.3 Mean Corpuscular Volume 87.2 Mean Corpuscular Hemoglobin 30.1 Mean Corpuscular Hemoglobin 34.6 Concent Red Cell Distribution Width 14.8 Platelet Count 338 Mean Platelet Volume 7.1 Date/Time Procedure Status Source Growth 09/24/16 18:45 Urine Culture - Preliminary Resulted Urine Catheterized Urine NO GROWTH IN 24 HOURS. 09/22/16 03:57 Aerobic Blood Culture - Preliminary Resulted Blood Peripheral NO GROWTH IN 3 DAYS 7/31/17 03:57 Anaerobic Blood Culture - Preliminary Resulted Blood Peripheral NO GROWTH IN 3 DAYS Problem Qualifiers (1) Chronic pain: Qualified Code: G89.4 - Chronic pain syndrome Bennett Samuel MD Sep 26, 2016 08:10
[2016-09-26] MEDS: FAMOTIDINE 20 MG/2 ML VIAL IV PUSH SCH ×2 (08:13→21:22)
--- NOTE | 2016-09-26 09:40 | HHI.IDPN ---
Subjective Subjective Remarks Patient is a 56-year-old female, brought into the hospital after she was noted to have some left sided weakness. EMS was called, and while in the ambulance, she had 3 episodes of tonic-clonic seizures, and received Ativan. ED she was intubated for airway protection. 2 blood cultures done on admission, 1 out of the 2 was growing strep irritants. Recently hospitalized in July and at that time she was diagnosed to have PRESS syndrome with hypertensive encephalopathy. There was no other mention of any other symptoms as far as respiratory, GI or urinary complaints. Her WBC was 13,000. Urinalysis unremarkable. Chest x-ray on admission was clear. Her LFTs were normal. She was started on Levaquin on September 21. She had one day of fever on September 22. Patient was successfully extubated September 22, and has remained off the vent. She is on nasal O2. She still has problems with agitation, and she is on Precedex. Patient has not had any fever in the last 48 hours. During her last admission she had an echo and at that time there was no significant valvular abnormalities seen. Notes reviewed Temps ok Mental status improving Good sats on RA Repeat UA ok No new (+) BC First UC with lactobacillus Repeat UC negative CXR now with basilar opacities WBC lower Antibiotics Rocephin Lines PIV Past Medical History DVT LE due to OCP when she was young Recent Dx PRESS, with HTN encephalopathy Allergies: Coded Allergies: No Known Allergies (Unverified , 08/11/15) Objective . Vital Signs Date Time Temp Pulse Resp B/P Pulse Ox O2 Delivery O2 Flow Rate FiO2 09/26/16 06:00 85 09/26/16 04:00 112 09/26/16 04:00 98.5 112 41 153/101 98 09/26/16 02:00 112 09/26/16 00:00 98.4 91 33 157/99 96 09/26/16 00:00 91 09/25/16 22:00 104 09/25/16 21:20 96 21 09/25/16 20:00 98.6 108 48 155/99 94 09/25/16 20:00 108 09/25/16 18:00 101 09/25/16 16:00 98.2 103 48 150/95 94 09/25/16 16:00 103 09/25/16 15:00 104 36 127/86 95 09/25/16 14:00 94 09/25/16 14:00 99 45 159/94 95 09/25/16 13:00 95 39 156/98 95 09/25/16 12:00 100 09/25/16 12:00 98.8 92 46 144/96 95 09/25/16 11:00 94 42 140/94 96 09/25/16 10:00 88 56 152/97 97 09/25/16 10:00 88 09/25/16 09/25/16 09/26/16 15:00 23:00 07:00 Intake Total 633 ml 1333 ml 136 ml Output Total 950 ml 1450 ml 400 ml Balance -317 ml -117 ml -264 ml IV Total 633 ml 1333 ml 136 ml Output Urine Total 950 ml 1450 ml 400 ml # Bowel Movements 1 1 . Laboratory Tests Test 09/25/16 09/26/16 06:10 06:22 White Blood Count 16.4 TH/MM3 15.8 TH/MM3 Red Blood Count 4.42 MIL/MM3 4.74 MIL/MM3 Hemoglobin 13.0 GM/DL 14.3 GM/DL Hematocrit 38.5 % 41.3 % Mean Corpuscular Volume 87.3 FL 87.2 FL Mean Corpuscular Hemoglobin 29.3 PG 30.1 PG Mean Corpuscular Hemoglobin 33.6 % 34.6 % Concent Red Cell Distribution Width 14.7 % 14.8 % Platelet Count 297 TH/MM3 338 TH/MM3 Mean Platelet Volume 6.6 FL 7.1 FL Neutrophils (%) (Auto) 84.1 % Lymphocytes (%) (Auto) 6.4 % Monocytes (%) (Auto) 9.2 % Eosinophils (%) (Auto) 0.1 % Basophils (%) (Auto) 0.2 % Neutrophils # (Auto) 13.8 TH/MM3 Lymphocytes # (Auto) 1.1 TH/MM3 Monocytes # (Auto) 1.5 TH/MM3 Eosinophils # (Auto) 0.0 TH/MM3 Basophils # (Auto) 0.0 TH/MM3 CBC Comment DIFF FINAL Differential Comment Laboratory Tests Test 09/24/16 09/25/16 09/26/16 18:47 06:10 06:11 Potassium Level 2.9 MEQ/L 3.5 MEQ/L 3.0 MEQ/L Sodium Level 132 MEQ/L 132 MEQ/L Chloride Level 102 MEQ/L 100 MEQ/L Carbon Dioxide Level 18.2 MEQ/L 19.8 MEQ/L Anion Gap 12 MEQ/L 12 MEQ/L Blood Urea Nitrogen 5 MG/DL 4 MG/DL Creatinine 0.26 MG/DL 0.30 MG/DL Estimat Glomerular Filtration 270 ML/MIN 229 ML/MIN Rate Random Glucose 89 MG/DL 80 MG/DL Lactic Acid Level 0.7 mmol/L Calcium Level 8.2 MG/DL 8.0 MG/DL Magnesium Level 1.5 MG/DL 1.7 MG/DL Total Bilirubin 0.4 MG/DL Aspartate Amino Transf 18 U/L (AST/SGOT) Alanine Aminotransferase 14 U/L (ALT/SGPT) Alkaline Phosphatase 62 U/L Total Protein 6.2 GM/DL Albumin 2.3 GM/DL Phosphorus Level 1.7 MG/DL Microbiology Date/Time Procedure Status Source Growth 09/24/16 18:45 Urine Culture - Final Complete Urine Catheterized Urine NO GROWTH IN 48 HOURS. Imaging Last Impressions Chest X-Ray 09/25/16 0600 Signed Impressions: Service Date/Time: September 03:07 - CONCLUSION: 1. Interval extubation and removal nasogastric tube. 2. New opacity at both lung bases left greater than right. This may represent infiltrate and/or effusion. Valentino Epstein MD Head CT 09/20/16 0000 Signed Impressions: Service Date/Time: Tuesday, September 20, 2016 10:38 - CONCLUSION: Negative for an acute process. Car Moseley MD FACR Brain MRI 09/20/16 0000 Signed Impressions: Service Date/Time: Tuesday, September 20, 2016 13:58 - CONCLUSION: 1. No acute intracranial abnormality. 2. Fluid within the left mastoid air cells raising the possibility of left-sided mastoiditis. Clinical correlation is recommended. Roger Zamora MD Physical Exam GENERAL: awake and alert, weak, NAD SKIN: Warm and dry. No generalized rash, no ecchymoses and no evidence of embolic lesions. HEAD: Atraumatic. Normocephalic. No temporal wasting, or tenderness. EYES: Rennert conjunctiva. No petechia or hemorrhage. Extraocular movements full and intact. No scleral icterus. No injection or drainage. EARS, NOSE AND THROAT: Nose without bleeding or purulent nasal discharge. No sinus tenderness. Slightly dry oral mucosa. NECK: Trachea midline. Supple and not tender, no meningeal signs CARDIOVASCULAR: Regular rate and rhythm. No murmurs, rubs or gallops heard RESPIRATORY: Clear to auscultation, but decreased at bases. ABDOMEN: Soft, nondistended, not tender, no guarding or rebound. Bowel sounds present and normoactive. No organomegaly. EXTREMITIES: No clubbing, cyanosis, or edema. No calf tenderness. Well perfused and warm. NEUROLOGICAL: Awake and alert, following commands PSYCHIATRIC: Cooperative LINE: No evidence of infection Assessment & Plan Remarks IMPRESSION One (+) BC with Strep viridans, ?significance Seizure felt to be ETOH withdrawal seizure Respiratory failure S/P extubation - intubated for airway when she had SZ Worsening leukocytosis, better - has bibasilar opacities, ?effusions - likely PNA RECOMMENDATION Follow repeat BC Continue Rocephin Monitor progress Follow CBC Dr Chaudhry covering this weekend if needed I will check patient again on Thursday Martha Garcia MD Sep 26, 2016 09:39
--- NOTE | 2016-09-26 10:20 | HHI.CCPN ---
Subjective Remarks/Hospital Course 09/20: This is a 56-year-old female that presented to the ED in respiratory distress. Per ED report the patient was noted to have left-sided left hemiplegia, last witnessed movement at 12 midnight per report. EMS was called, enroute the patient subsequently had 3 witnessed tonic-clonic seizures and received Ativan 2 mg. Upon arrival to ED, the patient was intubated for airway protection. No further seizure activity was noted, the patient was placed on a propofol infusion. Imaging studies were performed CT was negative, urine tox screen was noted to have cannabis and positive for urine opiates(the patient was on morphine ER at home). Patient's medical history is significant for PRES syndrome, and the patient was recently admitted to the hospital 07/26/15. At that time the patient's MRI revealed restricted diffusion in the right posterior parietal lobe and cerebral edema. The patient was notably hyponatremic at that time and presents today with a sodium level 134. Critical care medicine is consulted for management. 09/21: Remains sedated, orally intubated on mechanical ventilation. On propofol/ fentanyl and Precedex and still wakes up and gets agitated. 09/22: Awake and alert, orally intubated on mechanical ventilation on multiple sedatives and Precedex. Receiving Ativan for alcohol withdrawal. 09/23: Extubated on 09/22 to nasal cannula. Significant agitation requiring Precedex gtt. and Ativan IV due to alcohol withdrawal. 09/24: Remains on nasal cannula. Still requiring significant Ativan for alcohol withdrawal. Precedex titrated off. Drowsy, arousable. Remains disoriented. 09/25: Lethargic but easily arousable. The patient continues on Ativan via CIWA protocol. Noted chest x-ray bilateral opacities in lung bases. Urine culture lactobacillus, leukocytosis resolving. Plan for formal swallow study to advance diet. Patient appropriately responding to questions. 09/26: Patient agitated this a.m. requiring Ativan dosing. Patient noted hypertension, persistent. Metoprolol frequency increased to twice a day. Dietary consult to mechanical soft heart healthy diet instituted. The patient noted to be less confused today Objective Vital Signs Date Time Temp Pulse Resp B/P Pulse Ox O2 Delivery O2 Flow Rate FiO2 09/26/16 06:00 85 09/26/16 04:00 98.5 41 153/101 98 09/25/16 21:20 21 8/2/17 19:46 Nasal Cannula 3.00 Intake and Output 09/25/16 09/25/16 09/26/16 08:00 16:00 00:00 Intake Total 1345 ml 633 ml 1333 ml Output Total 1200 ml 950 ml 1450 ml Balance 145 ml -317 ml -117 ml Result Diagram: 09/26/16 0622 09/26/16 0611 Other Results Microbiology Date/Time Procedure Status Source Growth 09/24/16 18:45 Urine Culture - Final Complete Urine Catheterized Urine NO GROWTH IN 48 HOURS. Imaging Last Impressions Chest X-Ray 09/25/16 0600 Signed Impressions: Service Date/Time: September 03:07 - CONCLUSION: 1. Interval extubation and removal nasogastric tube. 2. New opacity at both lung bases left greater than right. This may represent infiltrate and/or effusion. Valentino Epstein MD Head CT 09/20/16 0000 Signed Impressions: Service Date/Time: Tuesday, September 20, 2016 10:38 - CONCLUSION: Negative for an acute process. Car Moseley MD FACR Brain MRI 09/20/16 0000 Signed Impressions: Service Date/Time: Tuesday, September 20, 2016 13:58 - CONCLUSION: 1. No acute intracranial abnormality. 2. Fluid within the left mastoid air cells raising the possibility of left-sided mastoiditis. Clinical correlation is recommended. Roger Zamora MD Last Impressions Chest X-Ray 09/20/16 0956 Signed Impressions: Service Date/Time: Tuesday, September 20, 2016 10:02 - CONCLUSION: Support apparatus in good position. Lungs are clear. Car Moseley MD FACR Head CT 09/20/16 0000 Signed Impressions: Service Date/Time: Tuesday, September 20, 2016 10:38 - CONCLUSION: Negative for an acute process. aCr Moseley MD FACR Objective Remarks GENERAL: Well-developed well-nourished female semirecumbent ,oriented SKIN: Warm and dry. HEAD: Atraumatic. Normocephalic. EYES: Pupils equal and round. No scleral icterus. No injection or drainage. ENT: No nasal bleeding or discharge. Mucous membranes pink and moist. NECK: Trachea midline. No JVD. CARDIOVASCULAR: Normal rate, regular rhythm. RESPIRATORY:Clear to auscultation. Breath sounds equal bilaterally. Tachypneic. GASTROINTESTINAL: Abdomen soft, non-tender, nondistended. No guarding. MUSCULOSKELETAL: Extremities without clubbing, cyanosis, or edema. No obvious deformities. NEUROLOGICAL: Alert, currently oriented and compliant Opens eyes and moves all 4 extremities A/P Assessment and Plan Plan by systems: Neurologic: Toxic/metabolic encephalopathy Seizure disorder EtOH abuse PRES Syndrome Left Hemiplegia? -Neurology consult-on previous admission patient seen by Dr. Hatch -Patient loaded with Dilantin in ED -Obtain Keppra level(home medications include 1 g twice a day) -Continue Keppra 1 g twice a day -History of consumption of alcohol reportedly one 6 pack of beer/day-seizure precautions -Follow up EEG -MVI, thiamine and folate infusion 5 days then convert to by mouth Continue [facility] protocol for alcohol withdrawal with Ativan when necessary. Increase librium 50mg via OGT/ PO [id number] on 09/23 however not ready for by mouth due to concern for aspiration. - Precedex for alcohol withdrawal dc'd 09/24. Ordered Geodon 20 mg IM 1 dose on 09/23. Ativan 4 mg IV every 4 hours per [facility] protocol -Neurochecks per ICU protocol Respiratory: Acute respiratory failure -Extubated 09/22. On nasal cannula -Maintain O2 sat greater than 92% -DuoNeb nebs every 6 hours scheduled and every 2 hours when necessary -09/25 CXR B/L infiltrate -Begin incentive spirometry every hour while awake Cardiovascular: Hypertension Hyperlipidemia -Maintain MAP greater than 65 mmHg -Increase metoprolol 25 mg/ BID,continue home medication amlodipine 10 mg/day, labetalol PRN -Continue Atorvastatin -09/25 ECHO- ejection fraction 5560%, no cardiac vegetations Renal: Insert Ash -- Strict I/Os FEN/GI: Hyponatremia, chronic? -monitor BMP -Decrease Normal saline 42 cc/hour -Mechanical soft diet per speech therapy recommendations -Zofran for nausea -Protonix for GI prophylaxis Heme/ID: Leukocytosis -Blood culture with strep viridans on 09/20. Antibiotics per ID recommendations 2-D echo ordered to evaluate for vegetations. Consulted ID for further evaluation of strep viridans bacteremia, Dr. Garcia. Urine culture- lactobacillus Endocrine: Hyperglycemia of critical illness Glucose monitoring per ICU protocol TSH level- WNL -- SSI Prophylaxis: GI Prophylaxis Protonix DVT Prophylaxis -- SCDs SQ heparin 09/21 Lines: Peripheral IVs 2. Central line if indicated Dispo: Level 2 Discussed with COUNSELING AIDE at bedside. Physician Meri Russell MD Sep 26, 2016 10:20
[2016-09-26] MEDS: cefTRIAXone INJ 2,000 MG in SODIUM CHLORIDE 0.9% INJ 100 ML IV SCH (17:14)
[2016-09-26] MEDS: ATORVASTATIN 20 MG TAB PO SCH (21:21)
[2016-09-27] VITALS (14 sets, daily range): BP systolic 132–166; BP diastolic 86–98; PULSE 85–117; RESP 18–43; TEMP 96.9–98.7; O2SAT 91–99
[2016-09-27] MEDS: CHLORHEXIDINE GLUCONATE 2 % 1 PACK (2 CLOTHS) TOP SCH (03:24)
[2016-09-27] MEDS: LORazepam 2 MG/ML VIAL IV PUSH PRN ×3 (03:24→20:14)
[2016-09-27 05:46] LABS: BICARBONATE 20.7 MEQ/L (21.0-32.0); MAGNESIUM 1.5 MG/DL (1.5-2.5); POTASSIUM 3.7 MEQ/L (3.5-5.1)
[2016-09-27] MEDS: INSULIN ASPART SUPPLEMENTAL SCALE SQ SCH ×4 (07:00→19:50)
[2016-09-27] MEDS: CHLORHEXIDINE 0.12% (ORAL KIT) 15 ML CUP MT SCH ×2 (08:00→19:45)
[2016-09-27] MEDS: levETIRAcetam 1000 MG INJ 100 ML IV SCH ×2 (09:42→19:45)
[2016-09-27] MEDS: DOCUSATE SODIUM 50 MG/SENNA 8.6 MG TAB PO SCH ×2 (09:42→19:49)
[2016-09-27] MEDS: chlordiazePOXIDE 25 MG CAP PO SCH ×2 (09:42→19:50)
[2016-09-27] MEDS: POTASSIUM CHLORIDE 25 MEQ EFFERVESCENT TAB PO SCH (09:42)
[2016-09-27] MEDS: METOPROLOL TARTRATE 25 MG TAB PO SCH ×2 (09:43→19:49)
[2016-09-27] MEDS: FAMOTIDINE 20 MG/2 ML VIAL IV PUSH SCH ×2 (09:43→19:49)
[2016-09-27] MEDS: HEPARIN SODIUM - SQ 10,000 UNITS/ML VIAL SQ SCH ×2 (09:43→19:49)
[2016-09-27] MEDS: SODIUM CHLORIDE 0.9% FLUSH 10 ML FLUSH IV FLUSH SCH ×2 (09:43→19:47)
[2016-09-27] MEDS: SODIUM CHLOR 0.9% 1000 ML INJ 1,000 ML IV SCH (13:11)
[2016-09-27] MEDS: cefTRIAXone INJ 2,000 MG in SODIUM CHLORIDE 0.9% INJ 100 ML IV SCH (19:47)
[2016-09-27] MEDS: ATORVASTATIN 20 MG TAB PO SCH (19:50)
[2016-09-28] VITALS (12 sets, daily range): BP systolic 100–148; BP diastolic 66–90; PULSE 90–120; RESP 18–20; TEMP 98.3–98.9; O2SAT 93–100
[2016-09-28] MEDS: LORazepam 2 MG/ML VIAL IV PUSH PRN (02:25)
[2016-09-28] MEDS: CHLORHEXIDINE GLUCONATE 2 % 1 PACK (2 CLOTHS) TOP SCH ×2 (02:27→22:46)
[2016-09-28] MEDS: INSULIN ASPART SUPPLEMENTAL SCALE SQ SCH ×4 (05:59→20:31)
[2016-09-28] MEDS: CHLORHEXIDINE 0.12% (ORAL KIT) 15 ML CUP MT SCH ×2 (08:00→20:29)
[2016-09-28] MEDS: chlordiazePOXIDE 25 MG CAP PO SCH ×2 (08:28→20:29)
[2016-09-28] MEDS: levETIRAcetam 1000 MG INJ 100 ML IV SCH ×2 (08:28→20:29)
[2016-09-28] MEDS: DOCUSATE SODIUM 50 MG/SENNA 8.6 MG TAB PO SCH ×2 (08:29→20:29)
[2016-09-28] MEDS: POTASSIUM CHLORIDE 25 MEQ EFFERVESCENT TAB PO SCH (08:29)
[2016-09-28] MEDS: METOPROLOL TARTRATE 25 MG TAB PO SCH ×2 (08:29→20:29)
[2016-09-28] MEDS: HEPARIN SODIUM - SQ 10,000 UNITS/ML VIAL SQ SCH ×2 (08:29→20:28)
[2016-09-28] MEDS: FAMOTIDINE 20 MG/2 ML VIAL IV PUSH SCH ×2 (08:32→20:28)
[2016-09-28] MEDS: SODIUM CHLORIDE 0.9% FLUSH 10 ML FLUSH IV FLUSH SCH ×2 (09:00→20:28)
[2016-09-28] MEDS: SODIUM CHLOR 0.9% 1000 ML INJ 1,000 ML IV SCH (13:25)
[2016-09-28] MEDS: cefTRIAXone INJ 2,000 MG in SODIUM CHLORIDE 0.9% INJ 100 ML IV SCH (18:57)
[2016-09-28] MEDS: ATORVASTATIN 20 MG TAB PO SCH (20:29)
[2016-09-29] VITALS (13 sets, daily range): BP systolic 119–168; BP diastolic 81–93; PULSE 85–111; RESP 18–28; TEMP 97.5–98.6; O2SAT 94–100
[2016-09-29] MEDS: LORazepam 2 MG/ML VIAL IV PUSH PRN ×5 (03:13→21:42)
[2016-09-29] MEDS: INSULIN ASPART SUPPLEMENTAL SCALE SQ SCH ×4 (07:00→21:00)
[2016-09-29] MEDS: CHLORHEXIDINE 0.12% (ORAL KIT) 15 ML CUP MT SCH ×2 (08:00→20:00)
[2016-09-29] MEDS: METOPROLOL TARTRATE 25 MG TAB PO SCH ×2 (08:06→21:44)
[2016-09-29] MEDS: levETIRAcetam 1000 MG INJ 100 ML IV SCH ×2 (08:06→21:43)
[2016-09-29] MEDS: HEPARIN SODIUM - SQ 10,000 UNITS/ML VIAL SQ SCH ×2 (08:07→21:43)
[2016-09-29] MEDS: chlordiazePOXIDE 25 MG CAP PO SCH ×2 (08:07→21:44)
[2016-09-29] MEDS: POTASSIUM CHLORIDE 25 MEQ EFFERVESCENT TAB PO SCH (08:07)
[2016-09-29] MEDS: DOCUSATE SODIUM 50 MG/SENNA 8.6 MG TAB PO SCH ×2 (08:07→21:44)
[2016-09-29] MEDS: FAMOTIDINE 20 MG/2 ML VIAL IV PUSH SCH ×2 (08:07→21:43)
[2016-09-29] MEDS: SODIUM CHLORIDE 0.9% FLUSH 10 ML FLUSH IV FLUSH SCH ×2 (08:15→21:44)
--- NOTE | 2016-09-29 08:59 | HHI.PR ---
Review/Management Diagnosis/Plan: (1) Seizure Plan: ? etiology probable etoh withdrawal. per rn, pt heavy drinker. on chronic opiods eeg- no active sz's recs mentation improved; doing well d/w pt to avoid etoh intake; consider AA ok for 5th floor with tele once cleared by medical p.t. will sign off; f/u with us in 2-3 weeks no driving/climbing heights/swimming alone or operating any dangerous machinery (2) Encephalopathy acute Plan: improved mri brain nml (3) Chronic pain Subjective Subjective Comments No acute events reported No headache No chest pain No dyspnea Active Medications Current Medications Medications (Trade) Dose Ordered Sig/Sonja Route Start Time Stop Time Status Last Admin Sodium Chloride 2 ml 2 ml UNSCH PRN IVF 09/20/16 10:00 (NS 1000 ml Inj) 1,000 ml @ 42 mls/hr [id number] IV 09/20/16 13:00 09/28/16 13:25 (NS Flush) 2 ml BID IV FLUSH 09/20/16 21:00 09/29/16 08:15 (Tylenol) 650 mg Q6H PRN PO 09/20/16 12:15 09/22/16 05:42 (Pepcid Inj) 20 mg Q12HR IV PUSH 09/20/16 21:00 09/29/16 08:07 (Zofran Inj) 4 mg Q6H PRN IV 09/20/16 12:15 Miscellaneous Information 1 Q361D XX 09/20/16 12:15 09/20/16 12:15 (Chlorhexidine 2% Cloth) Taper DAILY@04 TOP 09/21/16 04:00 09/17/17 03:59 09/28/16 22:46 (Eileen-Colace) 1 tab BID PO 09/20/16 21:00 09/29/16 08:07 (Milk Of Magnesia Liq) 30 ml Q12H PRN PO 09/20/16 12:15 (Senokot) 17.2 mg Q12H PRN PO 09/20/16 12:15 (Dulcolax Supp) 10 mg DAILY PRN RECTAL 09/20/16 12:15 (Lactulose Liq) 30 ml DAILY PRN PO 09/20/16 12:15 Chlorhexidine Gluconate 15 ml 15 ml BID@08,20 MT 09/20/16 20:00 09/28/16 20:29 (Keppra 1000 Mg Inj) 100 ml @ 400 mls/hr Q12HR IV 09/20/16 21:00 09/29/16 08:06 (Norvasc) 10 mg DAILY PO 09/21/16 09:00 09/29/16 08:06 (Lipitor) 20 mg HS PO 09/20/16 21:00 09/28/16 20:29 (Apresoline Inj) 20 mg Q4H PRN IV PUSH 09/20/16 13:15 (D50w (Vial) Inj) 50 ml UNSCH PRN IV 09/20/16 16:15 (Glucagon Inj) 1 mg UNSCH PRN OTHER 09/20/16 16:15 (Romazicon Inj) 0.2 mg Q1M PRN IV PUSH 09/21/16 12:45 (Ativan) 1 mg Q4H PRN PO 09/21/16 12:45 (Ativan Inj) 1 mg Q4H PRN IV PUSH 09/21/16 12:45 09/27/16 09:43 (Ativan) 2 mg Q2H PRN PO 09/21/16 12:45 (Ativan Inj) 2 mg Q2H PRN IV PUSH 09/21/16 12:45 09/26/16 07:21 (Ativan Inj) 2 mg Q1H PRN IV PUSH 09/21/16 12:45 09/26/16 09:01 (Ativan Inj) 2 mg Q15M PRN IV PUSH 09/21/16 12:45 09/24/16 08:56 Heparin Sodium (Porcine) 5000 units 5,000 units BID SQ 09/21/16 21:00 09/29/16 08:07 Potassium Chloride 100 ml @ 50 mls/hr Q2H PRN IV 09/22/16 05:30 (KCl 20 Meq Premix Inj) 100 ml @ 50 mls/hr Q2H PRN IV 09/22/16 05:30 09/26/16 14:25 Potassium Bicarb/ Potassium Chloride 50 meq 50 meq UNSCH PRN PO 09/22/16 05:30 09/27/16 00:25 Potassium Chloride 100 ml @ 25 mls/hr UNSCH PRN IV 09/22/16 05:30 Potassium Chloride 100 ml @ 50 mls/hr Q2H PRN IV 09/22/16 05:30 (Magnesium Sulfate Inj/NS Inj) 100 ml @ 50 mls/hr UNSCH PRN IV 09/22/16 05:30 Magnesium Oxide 800 mg 800 mg UNSCH PRN PO 09/22/16 05:30 (Magnesium Sulfate Inj/NS Inj) 100 ml @ 50 mls/hr UNSCH PRN IV 09/22/16 05:30 Potassium Phosphate 2000 mg 2,000 mg Q4H PRN PO 09/22/16 05:30 (Sodium Phosphate Inj/NS 250 ml Inj) 250 ml @ 42 mls/hr UNSCH PRN IV 09/22/16 05:30 Potassium Phosphate 2000 mg 2,000 mg UNSCH PRN PO/TUBE 09/22/16 05:30 (Potassium Phosphate Inj/NS 250 ml Inj) 260 ml @ 42 mls/hr UNSCH PRN IV 09/22/16 05:30 Chlordiazepoxide 50 mg 50 mg Q12HR PO 09/23/16 21:00 09/29/16 08:07 (Rocephin Inj/NS Inj) 100 ml @ 200 mls/hr Q24H IV 09/24/16 18:00 09/28/16 18:57 (Trandate Inj) 10 mg Q4H PRN IV PUSH 09/25/16 02:45 09/25/16 08:44 (Lopressor) 25 mg BID PO 09/26/16 21:00 09/29/16 08:06 (Ativan Inj) 1 mg Q3HR PRN IV PUSH 09/26/16 11:00 09/29/16 08:07 (K-Lyte Cl Eff) 25 meq DAILY PO 09/27/16 09:00 09/29/16 08:07 Allergies Allergies Coded Allergies No Known Allergies (Unverified08/11/15) Review of Systems All other ROS: ROS reviewed as documented in chart Exam I&O / VS 09/28/16 09/28/16 09/29/16 14:59 22:59 06:59 Intake Total 380 ml 964 ml 299 ml Output Total 550 ml 1000 ml 650 ml Balance -170 ml -36 ml -351 ml Intake Oral 380 ml 100 ml 0 ml IV Total 864 ml 299 ml Output Urine Total 550 ml 1000 ml 650 ml # Bowel Movements 0 0 Vital Signs Date Time Temp Pulse Resp B/P Pulse Ox O2 Delivery O2 Flow Rate FiO2 09/29/16 06:00 94 09/29/16 04:00 98.1 100 28 168/93 98 09/29/16 04:00 100 09/29/16 02:00 95 09/29/16 00:00 91 09/29/16 00:00 97.9 91 22 126/84 99 09/28/16 22:00 97 09/28/16 20:31 93 Nasal Cannula 3.00 09/28/16 20:00 98.9 104 20 128/88 97 09/28/16 20:00 104 09/28/16 14:00 99 09/28/16 12:00 99 09/28/16 12:00 98.6 120 18 100/66 100 09/28/16 10:00 99 Exam Comments alert, ox 3, able to give address, pres [place], follows with all 4 ext, eomi, ou 3-2mm, moves distal ext to gravity, minimal postural tremors, no clonus, planterflexor Objective Micro and Labs Date/Time Procedure Status Source Growth 09/24/16 18:45 Urine Culture - Final Complete Urine Catheterized Urine NO GROWTH IN 48 HOURS. Problem Qualifiers (1) Chronic pain: Qualified Code: G89.4 - Chronic pain syndrome Bennett Samuel MD Sep 29, 2016 08:59
[2016-09-29] MEDS: SODIUM CHLOR 0.9% 1000 ML INJ 1,000 ML IV SCH (11:48)
--- NOTE | 2016-09-29 12:31 | HHI.IDPN ---
Subjective Subjective Remarks Patient is a 56-year-old female, brought into the hospital after she was noted to have some left sided weakness. EMS was called, and while in the ambulance, she had 3 episodes of tonic-clonic seizures, and received Ativan. ED she was intubated for airway protection. 2 blood cultures done on admission, 1 out of the 2 was growing strep irritants. Recently hospitalized in July and at that time she was diagnosed to have PRESS syndrome with hypertensive encephalopathy. There was no other mention of any other symptoms as far as respiratory, GI or urinary complaints. Her WBC was 13,000. Urinalysis unremarkable. Chest x-ray on admission was clear. Her LFTs were normal. She was started on Levaquin on September 21. She had one day of fever on September 22. Patient was successfully extubated September 22, and has remained off the vent. She is on nasal O2. She still has problems with agitation, and she is on Precedex. Patient has not had any fever in the last 48 hours. During her last admission she had an echo and at that time there was no significant valvular abnormalities seen. Notes reviewed D/W RN Temps ok Mental status improving Good sats on RA Repeat UA ok No new (+) BC First UC with lactobacillus Repeat UC negative CXR 09/25 with basilar opacities WBC lower Antibiotics Rocephin Lines PIV Past Medical History DVT LE due to OCP when she was young Recent Dx PRESS, with HTN encephalopathy Allergies: Coded Allergies: No Known Allergies (Unverified , 08/11/15) Objective . Vital Signs Date Time Temp Pulse Resp B/P Pulse Ox O2 Delivery O2 Flow Rate FiO2 09/29/16 06:00 94 09/29/16 04:00 98.1 100 28 168/93 98 09/29/16 04:00 100 09/29/16 02:00 95 09/29/16 00:00 91 09/29/16 00:00 97.9 91 22 126/84 99 09/28/16 22:00 97 09/28/16 20:31 93 Nasal Cannula 3.00 09/28/16 20:00 98.9 104 20 128/88 97 09/28/16 20:00 104 09/28/16 14:00 99 09/28/16 09/28/16 09/29/16 14:59 22:59 06:59 Intake Total 380 ml 964 ml 299 ml Output Total 550 ml 1000 ml 650 ml Balance -170 ml -36 ml -351 ml Intake Oral 380 ml 100 ml 0 ml IV Total 864 ml 299 ml Output Urine Total 550 ml 1000 ml 650 ml # Bowel Movements 0 0 Imaging Last Impressions Chest X-Ray 09/25/16 0600 Signed Impressions: Service Date/Time: September 03:07 - CONCLUSION: 1. Interval extubation and removal nasogastric tube. 2. New opacity at both lung bases left greater than right. This may represent infiltrate and/or effusion. Valentino Epstein MD Head CT 09/20/16 0000 Signed Impressions: Service Date/Time: Tuesday, September 20, 2016 10:38 - CONCLUSION: Negative for an acute process. Car Moseley MD FACR Brain MRI 09/20/16 0000 Signed Impressions: Service Date/Time: Tuesday, September 20, 2016 13:58 - CONCLUSION: 1. No acute intracranial abnormality. 2. Fluid within the left mastoid air cells raising the possibility of left-sided mastoiditis. Clinical correlation is recommended. Roger Zamora MD Physical Exam GENERAL: awake and alert, weak, NAD SKIN: Warm and dry. No generalized rash, no ecchymoses and no evidence of embolic lesions. HEAD: Atraumatic. Normocephalic. No temporal wasting, or tenderness. EYES: [place] conjunctiva. No petechia or hemorrhage. Extraocular movements full and intact. No scleral icterus. No injection or drainage. EARS, NOSE AND THROAT: Nose without bleeding or purulent nasal discharge. No sinus tenderness. Slightly dry oral mucosa. NECK: Trachea midline. Supple and not tender, no meningeal signs CARDIOVASCULAR: Regular rate and rhythm. No murmurs, rubs or gallops heard RESPIRATORY: Clear to auscultation, but decreased at bases. ABDOMEN: Soft, nondistended, not tender, no guarding or rebound. Bowel sounds present and normoactive. No organomegaly. EXTREMITIES: No clubbing, cyanosis, or edema. No calf tenderness. Well perfused and warm. NEUROLOGICAL: Awake and alert, following commands PSYCHIATRIC: Cooperative LINE: No evidence of infection Assessment & Plan Remarks IMPRESSION One (+) BC with Strep viridans, ?significance Seizure felt to be ETOH withdrawal seizure Respiratory failure, Pneumonia, S/P extubation - intubated for airway when she had SZ Leukocytosis, better RECOMMENDATION Continue Rocephin Monitor progress Follow CBC Repeat CXR If stable, consider change to oral Abx and complete PNA Rx D/W RN Martha Garcia MD Sep 29, 2016 12:31 Martha Garcia MD Sep 29, 2016 12:31
[2016-09-29] MEDS: ACETAMINOPHEN 325 MG TAB PO PRN (16:35)
[2016-09-29] MEDS: cefTRIAXone INJ 2,000 MG in SODIUM CHLORIDE 0.9% INJ 100 ML IV SCH (16:36)
--- NOTE | 2016-09-29 18:35 | RADRPT ---
EXAM DATE/TIME: 09/29/2016 12:42 [facility] COMPARISON: CHEST SINGLE AP, September 20, 2016, 10:02. CHEST SINGLE AP, September 25, 2016, 3:07. INDICATIONS : Short of breath, evaluate infiltrates MEDICAL HISTORY : seizures SURGICAL HISTORY : None. ENCOUNTER: Subsequent ACUITY: 4 - 6 days PAIN SCORE: 0/10 LOCATION: Bilateral chest FINDINGS: There has been improvement in left base infiltrate which is almost completely resolved. Right lung re kevin grossly clear. Cardiac contours are satisfactory counted for projection. CONCLUSION: Near-complete clearance of left lung infiltrate Taco Odell MD on September 29, 2016 at 18:33 Board Certified Radiologist. This report was verified electronically.
--- NOTE | 2016-09-29 19:43 | HHI.PR ---
Subjective Remarks Patient continues to improve. Primary complaint today is back pain. She reports that she is on MS Contin at home. Objective Vital Signs Date Time Temp Pulse Resp B/P Pulse Ox O2 Delivery O2 Flow Rate FiO2 09/29/16 18:00 109 09/29/16 16:00 101 09/29/16 16:00 98.6 101 18 134/87 100 09/29/16 14:00 106 09/29/16 12:00 98.4 95 18 119/81 96 09/29/16 12:00 95 09/29/16 10:00 85 09/29/16 08:00 100 09/29/16 08:00 98.2 100 22 142/82 99 09/29/16 06:00 94 09/29/16 04:00 98.1 100 28 168/93 98 09/29/16 04:00 100 09/29/16 02:00 95 09/29/16 00:00 91 09/29/16 00:00 97.9 91 22 126/84 99 09/28/16 22:00 97 09/28/16 20:31 93 Nasal Cannula 3.00 09/28/16 20:00 98.9 104 20 128/88 97 09/28/16 20:00 104 I/O 09/28/16 09/28/16 09/28/16 09/29/16 09/29/16 09/29/16 07:00 15:00 23:00 07:00 15:00 23:00 Intake Total 300 ml 380 ml 964 ml 299 ml 1243 ml Output Total 350 ml 550 ml 1000 ml 650 ml 900 ml Balance -50 ml -170 ml -36 ml -351 ml 343 ml Intake Oral 0 ml 380 ml 100 ml 0 ml 720 ml IV Total 300 ml 864 ml 299 ml 523 ml Output Urine Total 350 ml 550 ml 1000 ml 650 ml 900 ml # Bowel Movements 0 0 0 1 Result Diagram: 09/26/16 0622 09/27/16 0455 Objective Remarks GENERAL: NAD, A&Ox3 HEAD: Normocephalic. NECK: Supple, trachea midline. No lymphadenopathy. EYES: No scleral icterus. No injection or drainage. CARDIOVASCULAR: Regular rate and rhythm without murmurs, gallops, or rubs. RESPIRATORY: Breath sounds equal bilaterally. No accessory muscle use. GASTROINTESTINAL: Abdomen soft, non-tender, nondistended. MUSCULOSKELETAL: No cyanosis, or edema. SKIN: Warm and dry. NEURO: No focal neurological deficitis. A/P Problem List: (1) Alcohol use ICD Code: Z78.9 (2) Seizure ICD Code: R56.9 (3) Altered mental status ICD Code: R41.82 (4) Hypertension ICD Code: I10 (5) Hyponatremia ICD Code: E87.1 Assessment and Plan Assessment and Plan 56-year-old female. Stable for transfer out of ICU today. IV fluids discontinued. Catheter removed. Continue physical therapy. Toxic/metabolic encephalopathy PRES Syndrome Resolved Seizure disorder EtOH abuse Continue Keppra When necessary Xanax Acute respiratory failure Pneumonia Continue antibiotics Patient extubated 09/22/16 Oxygen as needed Hypertension Continue metoprolol Continue amlodipine Follow blood pressures Hyperlipidemia Continue atorvastatin Follow as an outpatient Hyponatremia Appears to be stable now Discontinue normal saline Follow sodium levels Leukocytosis Likely related to pneumonia No vegetations on echocardiogram ID following Hyperglycemia of critical illness Resolved DVT prophylaxis Subcutaneous heparin and SCDs Dyllan Lewis MD Sep 29, 2016 19:43
[2016-09-29] MEDS ORDERED: ALPRAZolam 0.5 MG TAB PO PRN (20:00)
[2016-09-29] MEDS: ATORVASTATIN 20 MG TAB PO SCH (21:44)
[2016-09-30] VITALS (13 sets, daily range): BP systolic 102–163; BP diastolic 64–90; PULSE 83–110; RESP 18–24; TEMP 97.6–98.4; O2SAT 92–100
[2016-09-30] MEDS: LORazepam 2 MG/ML VIAL IV PUSH PRN (01:15)
[2016-09-30] MEDS: CHLORHEXIDINE GLUCONATE 2 % 1 PACK (2 CLOTHS) TOP SCH (04:00)
[2016-09-30] MEDS: INSULIN ASPART SUPPLEMENTAL SCALE SQ SCH ×4 (06:28→20:36)
[2016-09-30] MEDS: CHLORHEXIDINE 0.12% (ORAL KIT) 15 ML CUP MT SCH (08:00)
[2016-09-30] MEDS ORDERED: POTASSIUM PHOSPHATE MONOBASIC 500 MG TAB PO ONE (08:15)
[2016-09-30] MEDS: MORPHINE SULFATE 15 MG TAB PO PRN ×3 (08:21→18:17)
[2016-09-30] MEDS: METOPROLOL TARTRATE 25 MG TAB PO SCH ×2 (08:21→20:36)
[2016-09-30] MEDS: POTASSIUM CHLORIDE 25 MEQ EFFERVESCENT TAB PO SCH (08:21)
[2016-09-30] MEDS: DOCUSATE SODIUM 50 MG/SENNA 8.6 MG TAB PO SCH ×2 (08:21→20:35)
[2016-09-30] MEDS: chlordiazePOXIDE 25 MG CAP PO SCH ×2 (08:22→20:35)
[2016-09-30] MEDS: FAMOTIDINE 20 MG/2 ML VIAL IV PUSH SCH ×2 (08:22→20:36)
[2016-09-30] MEDS: SODIUM CHLORIDE 0.9% FLUSH 10 ML FLUSH IV FLUSH SCH ×2 (08:22→20:35)
[2016-09-30] MEDS: levETIRAcetam 1000 MG INJ 100 ML IV SCH (08:22)
[2016-09-30] MEDS: HEPARIN SODIUM - SQ 10,000 UNITS/ML VIAL SQ SCH ×2 (08:22→20:36)
--- NOTE | 2016-09-30 12:51 | HHI.IDPN ---
Subjective Subjective Remarks Patient is a 56-year-old female, brought into the hospital after she was noted to have some left sided weakness. EMS was called, and while in the ambulance, she had 3 episodes of tonic-clonic seizures, and received Ativan. ED she was intubated for airway protection. 2 blood cultures done on admission, 1 out of the 2 was growing strep irritants. Recently hospitalized in July and at that time she was diagnosed to have PRESS syndrome with hypertensive encephalopathy. There was no other mention of any other symptoms as far as respiratory, GI or urinary complaints. Her WBC was 13,000. Urinalysis unremarkable. Chest x-ray on admission was clear. Her LFTs were normal. She was started on Levaquin on September 21. She had one day of fever on September 22. Patient was successfully extubated September 22, and has remained off the vent. She is on nasal O2. She still has problems with agitation, and she is on Precedex. Patient has not had any fever in the last 48 hours. During her last admission she had an echo and at that time there was no significant valvular abnormalities seen. Notes reviewed D/W RN Temps ok Breathing good Good sats on RA No new (+) BC Repeat CXR much improved First UC with lactobacillus Repeat UC negative Antibiotics Rocephin Lines PIV Past Medical History DVT LE due to OCP when she was young Recent Dx PRESS, with HTN encephalopathy Allergies: Coded Allergies: No Known Allergies (Unverified , 08/11/15) Objective . Vital Signs Date Time Temp Pulse Resp B/P Pulse Ox O2 Delivery O2 Flow Rate FiO2 09/30/16 08:15 93 Nasal Cannula 2.00 09/30/16 06:00 102 09/30/16 04:00 97.8 89 24 163/89 94 09/30/16 04:00 89 09/30/16 02:00 88 09/30/16 00:00 83 09/30/16 00:00 98.0 83 24 105/64 95 09/29/16 22:00 94 09/29/16 21:09 99 2.00 09/29/16 20:00 97.5 111 24 139/85 94 09/29/16 20:00 111 09/29/16 18:00 109 09/29/16 16:00 101 09/29/16 16:00 98.6 101 18 134/87 100 09/29/16 14:00 106 09/29/16 09/29/16 09/30/16 15:00 23:00 07:00 Intake Total 1243 ml 514 ml 300 ml Output Total 900 ml 350 ml 650 ml Balance 343 ml 164 ml -350 ml Intake Oral 720 ml 120 ml 0 ml IV Total 523 ml 394 ml 300 ml Output Urine Total 900 ml 350 ml 650 ml # Bowel Movements 1 0 0 Imaging Chest X-Ray 09/29/16 0000 Signed Impressions: Service Date/Time: Thursday, September 29, 2016 12:42 - CONCLUSION: Near-complete clearance of left lung infiltrate Taco Odell MD Chest X-Ray 09/25/16 0600 Signed Impressions: Service Date/Time: September 03:07 - CONCLUSION: 1. Interval extubation and removal nasogastric tube. 2. New opacity at both lung bases left greater than right. This may represent infiltrate and/or effusion. Valentino Epstein MD Head CT 09/20/16 0000 Signed Impressions: Service Date/Time: Tuesday, September 20, 2016 10:38 - CONCLUSION: Negative for an acute process. Car Moseley MD FACR Brain MRI 09/20/16 0000 Signed Impressions: Service Date/Time: Tuesday, September 20, 2016 13:58 - CONCLUSION: 1. No acute intracranial abnormality. 2. Fluid within the left mastoid air cells raising the possibility of left-sided mastoiditis. Clinical correlation is recommended. Roger Zamora MD Physical Exam GENERAL: awake and alert, weak, NAD. Up inchair SKIN: Warm and dry. No generalized rash, no ecchymoses and no evidence of embolic lesions. HEAD: Atraumatic. Normocephalic. No temporal wasting, or tenderness. EYES: [place] conjunctiva. No petechia or hemorrhage. Extraocular movements full and intact. No scleral icterus. No injection or drainage. EARS, NOSE AND THROAT: Nose without bleeding or purulent nasal discharge. No sinus tenderness. Slightly dry oral mucosa. NECK: Trachea midline. Supple and not tender, no meningeal signs CARDIOVASCULAR: Regular rate and rhythm. No murmurs, rubs or gallops heard RESPIRATORY: Clear to auscultation, but decreased at bases. ABDOMEN: Soft, nondistended, not tender, no guarding or rebound. Bowel sounds present and normoactive. No organomegaly. EXTREMITIES: No clubbing, cyanosis, or edema. No calf tenderness. Well perfused and warm. NEUROLOGICAL: Awake and alert, following commands PSYCHIATRIC: Cooperative LINE: No evidence of infection Assessment & Plan Remarks IMPRESSION One (+) BC with Strep viridans, ?significance Seizure felt to be ETOH withdrawal seizure Respiratory failure S/P extubation - intubated for airway when she had SZ - possible PNA, CXR better Leukocytosis, better RECOMMENDATION Changer to Ceftin and complete PNA treatment Monitor progress Follow CBC D/W Martha Renee MD Sep 30, 2016 12:51
[2016-09-30] MEDS: CEFUROXIME AXETIL 500 MG TAB PO SCH ×2 (14:07→20:35)
[2016-09-30] MEDS ORDERED: KLYTECL PO (16:17)
[2016-09-30] MEDS ORDERED: CEFU1TAB20 PO (16:17)
[2016-09-30] MEDS ORDERED: METO25TA3 PO (16:17)
[2016-09-30] MEDS ORDERED: ALPR.5 PO (16:17)
[2016-09-30] MEDS ORDERED: SENN8.6T15 PO (16:17)
[2016-09-30] MEDS ORDERED: MSIR15 PO (16:17)
[2016-09-30] MEDS ORDERED: LACTTAB8 PO (16:17)
--- NOTE | 2016-09-30 16:22 | HHI.DS ---
Discharge Summary Admission Date Sep 20, 2016 at 11:07 Discharge Date: Sep 30, 2016 Admitting Diagnosis STATUS EPILEPTICUS, VENTILATORY FAILURE S/P INTUBATION (1) Altered mental status ICD Code: R41.82 Diagnosis: Principal (2) Seizure ICD Code: R56.9 Diagnosis: Principal (3) Encephalopathy acute ICD Code: G93.40 Diagnosis: Principal Procedures Intubation/ventilation Brief History - From Admission This is a 56-year-old female that presented to the ED in respiratory distress. Per ED report the patient was noted to have left-sided left hemiplegia, last witnessed movement at 12 midnight per report. EMS was called, enroute the patient subsequently had 3 witnessed tonic-clonic seizures and received Ativan 2 mg. Upon arrival to ED, the patient was intubated for airway protection. No further seizure activity was noted, the patient was placed on a propofol infusion. Imaging studies were performed CT was negative, urine tox screen was noted to have cannabis and positive for urine opiates(the patient was on morphine ER at home). Patient's medical history is significant for PRES syndrome, and the patient was recently admitted to the hospital 07/26/15. At that time the patient's MRI revealed restricted diffusion in the right posterior parietal lobe and cerebral edema. The patient was notably hyponatremic at that time and presents today with a sodium level 134. Critical care medicine is consulted for management. History PFSH Past Medical History Medical History: Unable to Obtain Hx Anticoagulant Therapy: No Cardiovascular Problems: Yes (murmur) Chemotherapy: No Cerebrovascular Accident: Yes Diabetes: No Respiratory: No Influenza Vaccination: No (uto) Past Surgical History Surgical History: Unable to Obtain Hysterectomy: No Other Surgery: Yes (blood clot leg) Social History Alcohol Use: Yes (6 pk beer daily) Tobacco Use: Yes (1 ppd) Substance Use: No (hx of with similar symptoms per evac today 09/20/16) Allergies-Medications Allergies-Medications (Allergen,Severity, Reaction): Coded Allergies: No Known Allergies (Unverified , 08/11/15) Reported Meds & Prescriptions Reported Meds & Active Scripts Active Reported Morphine ER (Morphine Sulfate) 30 Mg Tab 30 Mg PO Q8H Metoprolol Tartrate 25 Mg Tab 25 Mg PO DAILY Omeprazole 20 Mg Tab 20 Mg PO DAILY Amlodipine (Amlodipine Besylate) 10 Mg Tab 10 Mg PO DAILY Levetiracetam 1,000 Mg Tab 1,000 Mg PO BID Atorvastatin (Atorvastatin Calcium) 20 Mg Tab 20 Mg PO HS CBC/BMP: 09/26/16 0622 09/27/16 0455 Hospital Course Mrs. Quinones is a 56-year-old female. She was admitted secondary to status epilepticus and respiratory failure. She needed intubation and ventilation mechanically. Seizures were controlled and she was able to be extubated. She is uncertain of the etiology of her seizures. She denies any alcohol abuse leading up to or abrupt cessation of alcohol he could've contributed to delirium tremens. She did have evidence of some form of withdrawal but does not agree with that assessment. She has been weaned off of Ativan now and is doing well. Global weakness with difficulty ambulating is now present. Patient will benefit from inpatient rehabilitation to complete her course of treatment prior to discharge to home. Medically stable for discharge to an inpatient rehabilitation facility starting 10/01/16. Pt Condition on Discharge: Stable Discharge Disposition: Rehab Inpatient Discharge Time: > 30 minutes Discharge Instructions DIET: Follow Instructions for: As Tolerated, No Restrictions Speech Therapy-Diet Recommends: Mechanical Soft Activities you can perform: Regular-No Restrictions Follow up Referrals: PCP Follow-up - 2 Weeks New Medications: Lactobacillus Acidophilus (Lactobacillus Acidophilus) 1 Tab Tab 1 TAB PO TIDAC Nutritional Supplement #30 Ref 0 TAB Alprazolam (Xanax) 0.5 Mg Tab 0.25 MG PO Q6H PRN Anxiety #20 TAB Cefuroxime (Cefuroxime) 500 Mg Tab 500 MG PO Q12HR Infection #20 TAB Metoprolol Tartrate (Metoprolol Tartrate) 25 Mg Tab 25 MG PO BID Blood Pressure Management #60 TAB Morphine IR (Morphine IR) 15 Mg Tab 15 MG PO Q6HR PRN Pain 4 to 10 #30 TAB Potassium Bicarb-Chloride Effervescent (Effervescent Potassium Chloride 25 Meq) 25 Meq Tab 25 MEQ PO DAILY Low Potassium #5 TAB Sennosides (Senna Lax) 8.6 Mg Tab 17.2 MG PO Q12H PRN MODERATE - SEVERE CONSTIPATION #30 TAB Continued Medications: Amlodipine (Amlodipine) 10 Mg Tab 10 MG PO DAILY Blood Pressure Management #0 Ref 0 TAB Atorvastatin (Atorvastatin) 20 Mg Tab 20 MG PO HS Cholesterol Management #0 Ref 0 TAB Levetiracetam (Levetiracetam) 1,000 Mg Tab 1000 MG PO BID Control Seizures #0 Ref 0 TAB Metoprolol Tartrate (Metoprolol Tartrate) 25 Mg Tab 25 MG PO DAILY #0 Ref 0 TAB Omeprazole (Omeprazole) 20 Mg Tab 20 MG PO DAILY #0 Ref 0 TAB Discontinued Medications: Morphine ER (Morphine ER) 30 Mg Tab 30 MG PO Q8H Pain Management Ref 0 TAB Dyllan Lewis MD Sep 30, 2016 16:22
[2016-09-30] MEDS: ATORVASTATIN 20 MG TAB PO SCH (20:35)
[2016-09-30] MEDS: levETIRAcetam 500 MG TAB PO SCH (20:35)
[2016-09-30] MEDS ORDERED: levETIRAcetam 500 MG TAB PO SCH (21:00)
[2016-10-01] VITALS: BP 81/54; PULSE 83; RESP 20; TEMP 97.7; O2SAT 96
[2016-10-01 04:00] VITALS: BP 95/60; PULSE 87; RESP 20; TEMP 98; O2SAT 94
[2016-10-01 04:19] LABS: AUTOMATED NEUTROPHIL # 9.1 TH/MM3 (1.8-7.7); BASOPHIL # 0.2 TH/MM3 (0-0.2); BASOPHIL % 1.5 % (0.0-2.0); EOSINOPHIL # 0.2 TH/MM3 (0-0.4); EOSINOPHIL % 1.4 % (0.0-4.0); HEMATOCRIT 34.8 % (35.0-46.0); HEMO FLAGS DIFF FINAL; LYMPH % 14.8 % (9.0-44.0); LYMPHOCYTE # 1.8 TH/MM3 (1.0-4.8); MEAN CELL VOLUME 87.2 FL (80.0-100.0); MEAN CORPUSCULAR HEMOGLOBIN 29.9 PG (27.0-34.0); MEAN CORPUSCULAR HGB CONC 34.3 % (32.0-36.0); MONO % 7.9 % (0.0-8.0); NEUT % 74.4 % (16.0-70.0); PLATELET COUNT 547 TH/MM3 (150-450); RED BLOOD COUNT 3.99 MIL/MM3 (4.00-5.30); RED CELL DISTRIBUTION WIDTH 15.1 % (11.6-17.2); WHITE BLOOD COUNT 12.2 TH/MM3 (4.0-11.0)
[2016-10-01 04:44] LABS: ALT (GPT) 35 U/L (10-53); ANION GAP 9 MEQ/L (5-15); AST (GOT) 24 U/L (15-37); BICARBONATE 25.3 MEQ/L (21.0-32.0); BLOOD UREA NITROGEN 8 MG/DL (7-18); CHLORIDE 102 MEQ/L (98-107); GLOMERULAR FILTRATION RATE 133 ML/MIN (>89); MAGNESIUM 1.9 MG/DL (1.5-2.5); POTASSIUM 3.7 MEQ/L (3.5-5.1); SODIUM (NA) 136 MEQ/L (136-145)
[2016-10-01 04:46] LABS: ALKALINE PHOSPHATASE 50 U/L (45-117); TOTAL BILIRUBIN ADULT 0.2 MG/DL (0.2-1.0)
[2016-10-01] MEDS: INSULIN ASPART SUPPLEMENTAL SCALE SQ SCH ×2 (07:00→11:00)
[2016-10-01] MEDS: DOCUSATE SODIUM 50 MG/SENNA 8.6 MG TAB PO SCH (07:50)
[2016-10-01] MEDS: chlordiazePOXIDE 25 MG CAP PO SCH (07:50)
[2016-10-01] MEDS: CEFUROXIME AXETIL 500 MG TAB PO SCH (07:51)
[2016-10-01] MEDS: levETIRAcetam 500 MG TAB PO SCH (07:51)
[2016-10-01] MEDS: METOPROLOL TARTRATE 25 MG TAB PO SCH (07:51)
[2016-10-01] MEDS: HEPARIN SODIUM - SQ 10,000 UNITS/ML VIAL SQ SCH (07:52)
[2016-10-01 08:00] VITALS: BP 126/92; PULSE 99; RESP 22
[2016-10-01] MEDS: CHLORHEXIDINE 0.12% (ORAL KIT) 15 ML CUP MT SCH (08:00)
[2016-10-01 08:06] VITALS: O2SAT 95
[2016-10-01] MEDS: SODIUM CHLORIDE 0.9% FLUSH 10 ML FLUSH IV FLUSH SCH (08:17)
[2016-10-01] MEDS: FAMOTIDINE 20 MG/2 ML VIAL IV PUSH SCH (08:18)
--- NOTE | 2016-10-01 08:52 | HHI.PR ---
Subjective Remarks feeling better no nausea or vomiting patient got up for breakfast- ambulated around her bed- Objective Vitals Vital Signs Date Time Temp Pulse Resp B/P Pulse Ox O2 Delivery O2 Flow Rate FiO2 10/01/16 08:06 95 Nasal Cannula 2.00 10/01/16 04:00 87 10/01/16 04:00 98.0 87 20 95/60 94 10/01/16 00:00 83 10/01/16 00:00 97.7 83 20 81/54 96 09/30/16 20:17 92 21 09/30/16 20:00 110 09/30/16 20:00 97.6 110 20 111/69 95 09/30/16 18:26 104 09/30/16 16:00 97.6 100 22 117/78 100 09/30/16 16:00 100 09/30/16 14:00 109 09/30/16 12:00 98.4 96 18 102/66 97 09/30/16 12:00 96 09/30/16 10:00 88 I/O 09/30/16 09/30/16 09/30/16 10/01/16 10/01/16 10/01/16 06:59 14:59 22:59 06:59 14:59 22:59 Intake Total 300 ml 993 ml 539 ml 240 ml Output Total 650 ml 700 ml 425 ml 200 ml Balance -350 ml 293 ml 114 ml 40 ml Intake Oral 0 ml 720 ml 240 ml 240 ml IV Total 300 ml 273 ml 299 ml Output Urine Total 650 ml 700 ml 425 ml 200 ml # Bowel Movements 0 0 1 0 Result Diagram: 10/01/16 0351 10/01/16 0351 Imaging Last Impressions Chest X-Ray 09/29/16 0000 Signed Impressions: Service Date/Time: Thursday, September 29, 2016 12:42 - CONCLUSION: Near-complete clearance of left lung infiltrate Taco Odell MD Head CT 09/20/16 0000 Signed Impressions: Service Date/Time: Tuesday, September 20, 2016 10:38 - CONCLUSION: Negative for an acute process. Car Moseley MD FACR Brain MRI 09/20/16 0000 Signed Impressions: Service Date/Time: Tuesday, September 20, 2016 13:58 - CONCLUSION: 1. No acute intracranial abnormality. 2. Fluid within the left mastoid air cells raising the possibility of left-sided mastoiditis. Clinical correlation is recommended. Roger Zamora MD Objective Remarks GENERAL: awake and aler, oriented c 3,speech soft but clear, no tremors SKIN: Warm and dry. HEAD: Normocephalic. EYES: No scleral icterus. No injection or drainage. NECK: Supple, trachea midline. No JVD or lymphadenopathy. CARDIOVASCULAR: Regular rate and rhythm without murmurs, gallops, or rubs. RESPIRATORY: Breath sounds equal bilaterally. No accessory muscle use. GASTROINTESTINAL: Abdomen soft, non-tender, nondistended. MUSCULOSKELETAL: No cyanosis, or edema. slow but steady Procedures Intubation/ventilation A/P Problem List: (1) Altered mental status ICD Code: R41.82 Status: Resolved (2) Seizure ICD Code: R56.9 Status: Acute (3) Encephalopathy acute ICD Code: G93.40 Status: Acute Assessment and Plan 56 years old female Toxic/metabolic encephalopathy PRES Syndrome Resolved Seizure disorder EtOH abuse Continue Keppra Decrease Librium to 24 5 mg po q 12 When necessary Xanax Acute respiratory failure- resolved Pneumonia Continue antibiotics- ceftin 500 mg po q 12 till 10/10 Patient extubated 09/22/16 Oxygen as needed- DC 02. ff sats at room air Hypertension Continue metoprolol- LOpressor 25 mg po q 12 Continue amlodipine- decrease to 5 mg po dialy Follow blood pressures Hyperlipidemia Continue atorvastatin Follow as an outpatient Hyponatremia Appears to be stable now Discontinue normal saline Follow sodium levels Leukocytosis Likely related to pneumonia No vegetations on echocardiogram ID following - on Ceftin 500 mg po q 12ntill 10/10 Hyperglycemia of critical illness Resolved DVT prophylaxis Subcutaneous heparin and SCDs [facility] for PT/OT- deconditioning CM for DC planning Lucille Claudio MD Oct 01, 2016 08:51
[2016-10-01] MEDS ORDERED: AMLO10 PO (08:55)
[2016-10-01] MEDS ORDERED: chlordiazePOXIDE 25 MG CAP PO SCH (09:00)
[2016-10-01] MEDS ORDERED: PILL SPLITTER OTHER PRN (09:00)
[2016-10-01] MEDS: POTASSIUM CHLORIDE 25 MEQ EFFERVESCENT TAB PO SCH (09:00)
[2016-10-01 10:00] VITALS: BP 100/71; PULSE 82; RESP 21
[2016-10-01] MEDS ORDERED: MORPHINE SULFATE 15 MG TAB PO PRN ×2 (12:00→16:00)
== END 2016-10-01 11:15 | DRG 208 ==
LOC: NEPC 09:34 → NEDA 11:07 → HIME 11:55 → HIMW 09-27 15:30
PROVIDERS: ADMIT Internal Medicine; ATTEND Internal Medicine
PROC: 5A1945Z Respiratory Ventilation, 24-96 Consecutive Hours (ICD-10-PCS; principal; 2016-09-20)
PROC: 0BH17EZ Insertion of Endotracheal Airway into Trachea, Via Natural or Artificial Opening (ICD-10-PCS; 2016-09-20)
DX: J96.00 Acute respiratory failure, unspecified whether with hypoxia or hypercapnia (principal); I67.83 Posterior reversible encephalopathy syndrome; G92 Toxic encephalopathy; R56.9 Unspecified convulsions; J18.9 Pneumonia, unspecified organism; E87.1 Hypo-osmolality and hyponatremia; F10.239 Alcohol dependence with withdrawal, unspecified; E87.2 Acidosis; G81.94 Hemiplegia, unspecified affecting left nondominant side; I10 Essential (primary) hypertension; E78.5 Hyperlipidemia, unspecified; R73.9 Hyperglycemia, unspecified; G89.4 Chronic pain syndrome; R01.1 Cardiac murmur, unspecified; F17.200 Nicotine dependence, unspecified, uncomplicated; Y90.0 Blood alcohol level of less than 20 mg/100 ml; Z78.1 Physical restraint status; Z86.73 Personal history of transient ischemic attack (TIA), and cerebral infarction without residual deficits
CPT/HCPCS: 31500; 36600; 51702; 70450; 70551; 71010; 80048; 80053; 80076; 80177; 80307; 81001; 82140; 82805; 82948; 83605; 83735; 83930; 84100; 84132; 84439; 84443; 85025; 85027; 85610; 87040; 87086; 87641; 93005; 93306; 94002; 94003; 94150; 94640; 94664; 95819; 96365; 96375; J0330; J0461; J0696; J1165; J1644; J1815; J1953; J1956; J2060; J3010; J3411; J3480; J3486; J7030; J7040; J7050

== ENCOUNTER 2017-01-02 09:31 | Inpatient (IN) | payer MEDICARE, BC ==
[2017-01-02] VITALS (16 sets, daily range): BP systolic 122–166; BP diastolic 68–93; PULSE 70–122; RESP 14–25; TEMP 97.8–98.7; O2SAT 89–98
[~2017-01-02 09:31] MED LIST changes: -ALBU8I INH; -AMLO10 PO; +ATOR20TA15 PO; +CEFU1TAB20 PO; +LACTTAB8 PO; +LEVE10003 PO; -LEVE500 PO; -METO25 PO; +METO25TA3 PO; -MORP30SU PO; +MSIR15 PO; -OMEP20TA39 PO; +OMEP20TA93 PO; +SENN1TAB PO
[2017-01-02] MEDS ORDERED: SODIUM CHLOR 0.9% 1000 ML INJ 1,000 ML IV ONE (09:36)
[2017-01-02] MEDS ORDERED: MISCELLANEOUS NURSING INFORMATION XX PRN (09:45)
[2017-01-02] MEDS ORDERED: ALTEPLASE BOLUS 9 MG/9 ML SYR IV ONE (09:45)
[2017-01-02] MEDS ORDERED: SODIUM CHLORIDE 0.9% 50 ML BAG IVF ONE (09:45)
--- NOTE | 2017-01-02 09:51 | RADRPT ---
EXAM DATE/TIME: 01/02/2017 09:34 [facility] COMPARISON: CT BRAIN W/O CONTRAST, September 20, 2016, 10:38. INDICATIONS : Stroke alert. Left weakness and facial droop. RADIATION DOSE: 56.35 CTDIvol (mGy) This report was called by Dr. Mae to Dr. Blanc at 9: 48 AM. MEDICAL HISTORY : Non-responsive. SURGICAL HISTORY : Non-responsive. ENCOUNTER: Initial ACUITY: 1 day PAIN SCALE: 0/10 LOCATION: cranial TECHNIQUE: Multiple contiguous axial images were obtained of the head. Using automated exposure control and adj ustment of the mA and/or kV according to patient size, radiation dose was kept as low as reasonably a chievable to obtain optimal diagnostic quality images. DICOM format image data is available electro nically for review and comparison. FINDINGS: CEREBRUM: The ventricles are normal. There is mild cerebral atrophy. No evidence of midline shift, mass lesion , hemorrhage or acute infarction. No extra-axial fluid collections are seen. POSTERIOR FOSSA: The cerebellum and brainstem demonstrate no acute finding. The 4th ventricle is midline. The cerebe llopontine angle is unremarkable. EXTRACRANIAL: Visualized sinuses are clear. SKULL: The calvaria is intact. No evidence of skull fracture. CONCLUSION: No acute intracranial abnormality is identified. Taco Mae MD on January 02, 2017 at 9:46 Board Certified Radiologist. This report was verified electronically.
[2017-01-02] MEDS ORDERED: ONDANSETRON HCL 4 MG/2 ML VIAL ONE (09:52)
[2017-01-02 09:53] LABS: I-STAT POTASSIUM 4.4 MMOL/L (3.5-4.9); I-STAT SODIUM 131 MMOL/L (138-146)
[2017-01-02 09:54] LABS: AUTOMATED NEUTROPHIL # 10.2 TH/MM3 (1.8-7.7); BASOPHIL % 0.1 % (0.0-2.0); EOSINOPHIL % 0.1 % (0.0-4.0); HEMATOCRIT 42.9 % (35.0-46.0); HEMO FLAGS DIFF FINAL; LYMPH % 14.9 % (9.0-44.0); LYMPHOCYTE # 1.9 TH/MM3 (1.0-4.8); MEAN CELL VOLUME 91.8 FL (80.0-100.0); MEAN CORPUSCULAR HEMOGLOBIN 30.8 PG (27.0-34.0); MEAN CORPUSCULAR HGB CONC 33.6 % (32.0-36.0); MONO % 5.3 % (0.0-8.0); NEUT % 79.6 % (16.0-70.0); PLATELET COUNT 382 TH/MM3 (150-450); RED BLOOD COUNT 4.68 MIL/MM3 (4.00-5.30); RED CELL DISTRIBUTION WIDTH 13.6 % (11.6-17.2); WHITE BLOOD COUNT 12.8 TH/MM3 (4.0-11.0)
--- NOTE | 2017-01-02 09:57 | PD ---
HPI Chief Complaint: stroke alert Time Seen by Provider: 09:36 Travel History International Travel<30 days: No Contact w/Intl Traveler<30days: No History of Present Illness HPI The patient's 56 years old. She arrives by EMS due to weakness in the left arm and leg and due to a facial droop on the left side. The patient was witnessed by family to tense up and a somewhat tonic fashion and then become weak on the left side as described. The family did not see any tonic-clonic seizure activity. The patient has a history of seizures. She takes Keppra. She does not take any anticoagulant. The onset of the weakness was about 30 minutes prior to ER arrival. EMS reports normal blood sugar and a relatively hypertensive at BP at about 160/80. Evidently last seizure was 6 months ago. PFSH Past Medical History Hx Anticoagulant Therapy: No Arthritis: Yes Asthma: No Autoimmune Disease: No Anxiety: Yes (occ) Depression: No Heart Rhythm Problems: No Cancer: No Cardiovascular Problems: Yes (murmur) High Cholesterol: Yes Chemotherapy: No Chest Pain: No Congestive Heart Failure: No COPD: No Cerebrovascular Accident: No Diabetes: No Endocrine: No GERD: Yes (on pepcid) Genitourinary: No Hiatal Hernia: No Immune Disorder: No Kidney Stones: No Musculoskeletal: Yes Neurologic: Yes (pt states on keppra) Psychiatric: No Reproductive: No Respiratory: No Migraines: No Radiation Therapy: No Seizures: Yes Sickle Cell Disease: No Sleep Apnea: No Thyroid Disease: No Ulcer: Yes Past Surgical History AICD: No Arteriovenous Shunt: No Hysterectomy: No Insulin Pump: No Joint Replacement: No Pacemaker: No Other Surgery: Yes (blood clot leg) Social History Alcohol Use: Yes (6 pk beer daily) Tobacco Use: Yes (1 ppd) Substance Use: No (hx of with similar symptoms per evac today 09/20/16) Allergies-Medications (Allergen,Severity, Reaction): Coded Allergies: No Known Allergies (Unverified , 08/11/15) Reported Meds & Prescriptions Reported Meds & Active Scripts Active Senna Plus 8.6-50 mg (Sennosides-Docusate Sodium) 1 Tab Tab 1 Tab PO BID Metoprolol Tartrate 25 Mg Tab 12.5 Mg PO Q12HR Morphine IR (Morphine Sulfate) 15 Mg Tab 15 Mg PO Q6HR PRN Lactobacillus Acidophilus 1 Tab Tab 1 Tab PO TIDAC Omeprazole 20 Mg Tab 20 Mg PO DAILY Levetiracetam 1,000 Mg Tab 1,000 Mg PO BID Atorvastatin (Atorvastatin Calcium) 20 Mg Tab 20 Mg PO HS Review of Systems Except as stated in HPI: all other systems reviewed are Neg General / Constitutional: No: Fever Gastrointestinal: No: Nausea, Vomiting, Diarrhea, Abdominal Pain Physical Exam Narrative GENERAL: 56-year-old female pleasant well-nourished well-developed SKIN: Focused skin assessment warm/dry. HEAD: Atraumatic. Normocephalic. EYES: Pupils equal and round. No scleral icterus. No injection or drainage. ENT: No nasal bleeding or discharge. Mucous membranes pink and moist. NECK: Trachea midline. No JVD. CARDIOVASCULAR: Tachycardia. Rate about 115. Rhythm regular. RESPIRATORY: No accessory muscle use. Clear to auscultation. Breath sounds equal bilaterally. GASTROINTESTINAL: Abdomen soft, non-tender, nondistended. Hepatic and splenic margins not palpable. MUSCULOSKELETAL: No obvious deformities. No clubbing. No cyanosis. No edema. NEUROLOGICAL: Awake and alert. There is weakness of the left upper extremity and left lower extremity with approximately 3 over 5 active motor function in the left upper extremity and 3 over 5 active motor function in the left lower extremity. There is a side facial droop. Speech is normal. Memory mentation normal. PSYCHIATRIC: Appropriate mood and affect; insight and judgment normal. Data Data Last Documented VS Vital Signs Date Time Temp Pulse Resp B/P (MAP) Pulse Ox O2 Delivery O2 Flow Rate FiO2 01/02/17 10:25 92 16 151/86 (107) 90 Nasal Cannula 3.00 01/02/17 09:34 98.7 Orders Orders Diet Npo (01/02/17 Breakfast) Activity Bed Rest (01/02/17 ) Electrocardiogram (01/02/17 ) I-Stat Creatinine (01/02/17 09:36) I-Stat Profile (01/02/17 09:36) Prothrombin Time / Inr (Pt) (01/02/17 09:36) Act Partial Throm Time (Ptt) (01/02/17 09:36) Complete Blood Count With Diff (01/02/17 09:36) Fibrinogen (01/02/17 09:36) Creatine Kinase (Cpk) (01/02/17 09:36) Troponin I (01/02/17 09:36) Ua Includes Microscopic (01/02/17 09:36) Drug Screen, Random Urine (01/02/17 09:36) Type And Screen (01/02/17 09:36) Ct Brain W/O Iv Contrast(Rout) (01/02/17 ) Cta Brain W Iv Contrast W 3d (01/02/17 09:36) Cta Neck W Iv Contrast W 3d (01/02/17 09:36) Beta Hcg (Quant/Titer) (01/02/17 09:36) Consult Neurology (01/02/17 ) Blood Glucose (01/02/17 09:36) Ecg Monitoring (01/02/17 09:36) Neuro Checks Q2HX12,Q4H (01/02/17 09:36) Nursing Bedside Swallow Assess .ONCE (01/02/17 09:36) Iv Access Insert/Monitor (01/02/17 09:36) NPO (01/02/17 09:36) Oximetry (01/02/17 09:36) Oxygen Administration (01/02/17 09:36) Sodium Chlor 0.9% 1000 Ml Inj (Ns 1000 M (01/02/17 09:36) Resp Oxygen Remberto C Titrat 1-4 L (01/02/17 09:36) Cath For Specimen (01/02/17 09:36) ^ Call Pharmacy (01/02/17 09:36) Nih Stroke Scale - Nihss .ONCE (01/02/17 09:36) Urinary Catheter Insert/Apply (01/02/17 09:36) Anticoagulant Alert (01/02/17 09:36) ^ Post Infusion Restrictions (01/02/17 09:36) ^ Medication Alert (01/02/17 09:36) Vital Signs (Adult) .As directed (01/02/17 09:36) Notify Dr: Blood Pressure (01/02/17 09:36) ^ Medication Alert (01/02/17 09:36) Sodium Chloride 0.9% Inj (Ns Inj) (01/02/17 09:45) Misc Nursing Information (01/02/17 09:45) Resp Oxygen Remberto C Titrat 1-4 L (01/02/17 ) Alteplase Bolus (Activase Bolus) (01/02/17 09:45) Alteplase Drip (Activase Drip) (01/02/17 09:45) Ondansetron Inj (Zofran Inj) (01/02/17 10:00) Ondansetron Inj (Zofran Inj) (01/02/17 09:52) (Hub Use Only)Inp Phy Cons/Ref (01/02/17 ) Ct Brain W/O Iv Contrast(Rout) (01/03/17 10:00) Mri Brain W&W/O Contrast (01/02/17 ) Echo 2d Comp With Doppler (01/02/17 ) Lipid Profile (01/02/17 10:12) Scd Bilateral/Knee High CASSIDY.QSHIFT (01/02/17 10:12) Levetiracetam (Keppra) (01/02/17 21:00) ^ Seizure Precautions (01/02/17 10:12) Lorazepam Inj (Ativan Inj) (01/02/17 10:15) Promethazine Inj (Phenergan Inj) (01/02/17 10:30) Admit Order (Ed Use Only) (01/02/17 ) Cam Specialist / Telemetry CASSIDY.Q8H (01/02/17 10:38) Vital Signs (Adult) Q4H (01/02/17 10:38) Diet Npo (01/02/17 Lunch) Activity Bed Rest (01/02/17 10:38) Labs Laboratory Tests Test 01/02/17 09:35 White Blood Count 12.8 TH/MM3 Red Blood Count 4.68 MIL/MM3 Hemoglobin 14.4 GM/DL Bedside Hemoglobin 15.0 G/DL Hematocrit 42.9 % Bedside Hematocrit 44.0 % Mean Corpuscular Volume 91.8 FL Mean Corpuscular Hemoglobin 30.8 PG Mean Corpuscular Hemoglobin Concent 33.6 % Red Cell Distribution Width 13.6 % Platelet Count 382 TH/MM3 Mean Platelet Volume 7.0 FL Neutrophils (%) (Auto) 79.6 % Lymphocytes (%) (Auto) 14.9 % Monocytes (%) (Auto) 5.3 % Eosinophils (%) (Auto) 0.1 % Basophils (%) (Auto) 0.1 % Neutrophils # (Auto) 10.2 TH/MM3 Lymphocytes # (Auto) 1.9 TH/MM3 Monocytes # (Auto) 0.7 TH/MM3 Eosinophils # (Auto) 0.0 TH/MM3 Basophils # (Auto) 0.0 TH/MM3 CBC Comment DIFF FINAL Differential Comment Prothrombin Time 10.0 SEC Prothromb Time International Ratio 0.9 RATIO Activated Partial Thromboplast Time 25.0 SEC Fibrinogen 359 mg/dL Bedside Sodium 131 MMOL/L Bedside Potassium 4.4 MMOL/L Bedside Chloride 98 MMOL/L Bedside Blood Urea Nitrogen 6 MG/DL Bedside Creatinine 0.5 MG/DL Bedside Glucose 203 MG/DL Total Creatine Kinase 107 U/L Troponin I LESS THAN 0.02 NG/ML Human Chorionic Gonadotropin, Quant 2 MIU/ML MDM Medical Screen Exam Complete: Yes Emergency Medical Condition: Yes Medical Record Reviewed: Yes EKG Prior to Arrival: Yes Differential Diagnosis Hemorrhagic stroke, ischemic stroke, Farhad's paralysis Narrative Course CBC & BMP Diagram 01/02/17 09:35 Last Impressions Neck CTA 01/02/1736 Signed Impressions: Service Date/Time: Monday, January 02, 2017 09:34 - CONCLUSION: Negative for hemodynamically significant carotid stenosis. Car Moseley MD FACR Head CTA 01/02/17 0936 Signed Impressions: Service Date/Time: Monday, January 02, 2017 09:34 - CONCLUSION: Negative for major branch vessel occlusion. Car Moseley MD FACR Head CT 01/02/17 0000 Signed Impressions: Service Date/Time: Monday, January 02, 2017 09:34 - CONCLUSION: No acute intracranial abnormality is identified. Taco Mae MD The patient received TPA. Symptoms were improving gradually and continued to improve afterwards. She'll be admitted to [facility]. D/w Dr Hernandez, who evaluated the patient at bedside. D/w Dr Cooley for manager operating service. Critical Care Narrative Aggregate critical care time was 40 minutes. Time to perform other separately billable procedures was not included in the critical care time. My time did not include minutes spent treating any other patients simultaneously or on activities that did not directly contribute to the patient's treatment. The services I provided to this patient were to treat and/or prevent clinically significant deterioration that could result in: permanent deficit I provided critical care services requiring my management, as noted below: Chart data review, documentation time, medication orders and management, vital sign assessments/reviewing monitor data, ordering and reviewing lab tests, ordering and interpreting/reviewing x-rays and diagnostic studies, care of the patient and discussion of the patient with the admitting physicians. Stroke Alert NIHSS NIH Stroke Scale Result: 7 NIHSS Time Completed: 09:36 Diagnosis Diagnosis: Primary Impression: Ischemic stroke Admitting Physician Requests: Dyllan Jones MD Jan 02, 2017 09:57
[2017-01-02] MEDS ORDERED: ONDANSETRON HCL 4 MG/2 ML VIAL IV PUSH ONE (10:00)
[2017-01-02 10:04] LABS: INTERNATIONAL NORMALIZED RATIO 0.9 RATIO
--- NOTE | 2017-01-02 10:26 | RADRPT ---
EXAM DATE/TIME: 01/02/2017 09:34 [facility] COMPARISON: No previous studies available for comparison. INDICATIONS : Stroke alert, left sided weakness and facial droop. IV CONTRAST: 50 cc Visipaque (iodixanol) IV ; Cumulative dose for multiple exams. RADIATION DOSE: 13.04 CTDIvol (mGy) ; Combined studies - Thorax/Abdomen/Pelvis MEDICAL HISTORY : Non-responsive. SURGICAL HISTORY : Non-responsive. ENCOUNTER: Initial ACUITY: 1 day PAIN SCALE: 0/10 LOCATION: cranial TECHNIQUE: Volumetric scanning was performed using a multi-row detector CT scanner. The data was post processed with a variety of visualization algorithms including full volume maximum intensity pr ojection, multi-planar sliding thin slab reformation, curved planar reformation, and surface renderin g techniques. Using automated exposure control and adjustment of the mA and/or kV according to patie nt size, radiation dose was kept as low as reasonably achievable to obtain optimal diagnostic quality images. DICOM format image data is available electronically for review and comparison. FINDINGS: There is excellent visualization of the major intracranial arteries out to the second-order branch ve ssels. There is no evidence for aneurysm, vessel truncation or stenosis, and no evidence for vascula r malformation. Moderate atherosclerotic intracranial vascular disease without major branch vessel occlusion. CONCLUSION: Negative for major branch vessel occlusion. Car Moseley MD FACR on January 02, 2017 at 10:23 Board Certified Radiologist. This report was verified electronically.
[2017-01-02 10:27] LABS: BETA HCG QUANT 2 MIU/ML (0-5)
--- NOTE | 2017-01-02 10:27 | RADRPT ---
EXAM DATE/TIME: 01/02/2017 09:34 [facility] COMPARISON: No previous studies available for comparison. INDICATIONS : Stroke alert, left sided weakness and facial droop. IV CONTRAST: 50 cc Visipaque (iodixanol) IV ; Cumulative dose for multiple exams. RADIATION DOSE: 13.04 CTDIvol (mGy) ; Combined studies MEDICAL HISTORY : Non-responsive. SURGICAL HISTORY : Non-responsive. ENCOUNTER: Initial ACUITY: 1 day PAIN SCALE: Non-responsive LOCATION: neck Elevated flow velocities and ICA/CCA ratios have been found to correlate with increased degrees of vessel stenosis, calculated as percentage of diameter relative to a normal segment of distal ICA/CCA. TECHNIQUE: Volumetric scanning was performed using a multirow detector CT scanner. The data was post processed with a variety of visualization algorithms including full-volume maximum intensity projection, multip lanar sliding thin-slab reformation, curved-planar reformation, and surface-rendering techniques. Us ing automated exposure control and adjustment of the mA and/or kV according to patient size, radiatio n dose was kept as low as reasonably achievable to obtain optimal diagnostic quality images. DICOM f ormat image data is available electronically for review and comparison. FINDINGS: AORTIC ARCH: There is a three-vessel origin of the great vessels from the aorta. No evidence of ostial narrowing. RIGHT CAROTID: The common carotid artery is intact. The carotid bulb has a normal configuration without ulceration o r narrowing. The internal carotid artery lumen is smooth without stenosis. The external carotid xi ry is intact. LEFT CAROTID: The common carotid artery is intact. The carotid bulb has a normal configuration without ulceration or narrowing. The internal carotid artery lumen is smooth without stenosis. The external carotid ar kevin is intact. VERTEBRALS: The left vertebral is dominant.. CONCLUSION: Negative for hemodynamically significant carotid stenosis. Car Moseley MD FACR on January 02, 2017 at 10:25 Board Certified Radiologist. This report was verified electronically.
--- NOTE | 2017-01-02 10:28 | MB ---
cc: RAMU GARCIAS M.D. DATE OF CONSULTATION 01/02/2017 REASON FOR CONSULTATION Stroke alert HISTORY OF PRESENT ILLNESS Ms. Quinones is a 56-year-old female with a history of seizures who developed weakness of the left arm, left leg, and left facial droop this morning about 30 minutes prior to ER arrival around 09:00 a.m. this morning. The family witnessed her to have generalized tensing up, but no tonic-clonic seizure activity and she is noted to be weak on the left side as noted above. She came in as a stroke alert. Her symptoms have shown some improvement, but still with weakness on the left. PAST MEDICAL HISTORY 1. History of seizure disorder for which she takes Keppra. 2. History of arthritis, anxiety, heart murmur, hypercholesterolemia 3. Gastroesophageal reflux disease 4. History of blood clot in the leg in the past. ALLERGIES None known. MEDICATIONS AT HOME 1. Keppra 1000 mg b.i.d. 2. Atorvastatin 20 mg daily 3. Omeprazole 20 hours daily 4. Cefuroxime 5. Lactobacillus 6. Morphine as needed for pain 7. Metoprolol 25 mg b.i.d. 8. Senna NEUROLOGIC EXAMINATION VITAL SIGNS: Blood pressure was 150/92, pulse 80 regular appears to be in sinus rhythm. Higher cortical functions, she is alert and oriented. Speech is mildly dysarthric. She follows commands. Cranial nerves, she has got a very mild left upper motor neuron VII palsy. Other cranial nerves are normal. The extraocular movements are intact. The pupils are equal and reactive. On motor exam, she has mild weakness left arm and left leg rated at 4/5 with normal strength. The right reflexes are 2+ and symmetric. CT of the brain is normal. LABORATORY DATA White count 12,800, hemoglobin 14.4, hematocrit 42.9% platelet count 382,000, PT 10, INR 0.9, APTT 25. Sodium is 131, potassium 4.4, chloride 98, BUN is 6, creatinine 0.5, glucose 203, NIH stroke scale is pending. IMPRESSION Probable right hemisphere stroke acute. Focal seizure with Farhad's paralysis would also be a consideration but less likely. RECOMMENDATIONS Recommend IV TPA for the patient per protocol as she is within the therapeutic window. Also obtain a CT angiogram for further evaluation of large vessel occlusion. We will monitor in the Intensive Care Unit with post TPA orders, including frequent neuro checks and vital signs. Avoid any antiplatelets or anticoagulants for 24 hours post TPA. We will also obtain a repeat CT of the brain 24 hours after TPA administration. We will also obtain MRI/MRA of the brain, carotid ultrasound, and echocardiogram for further evaluation, as well as lipid panel. Thank you for asking us to see this patient in consult. MD STERLING Denson/VIKY /10:15 AM /10:22 AM
[2017-01-02] MEDS ORDERED: PROMETHAZINE INJ 25 MG/ML VIAL IM ONE (10:30)
[2017-01-02 10:36] LABS: CREATINE KINASE 107 U/L (26-192)
[2017-01-02] MEDS ORDERED: BISACODYL 10 MG SUPP RECTAL PRN (10:45)
[2017-01-02] MEDS ORDERED: SENNOSIDES 8.6 MG TAB PO PRN (10:45)
[2017-01-02] MEDS ORDERED: SODIUM CHLORIDE 0.9% FLUSH 10 ML FLUSH IV FLUSH PRN (10:45)
[2017-01-02] MEDS ORDERED: MAGNESIUM HYDROXIDE SUSP 30 ML CUP PO PRN (10:45)
[2017-01-02] MEDS ORDERED: LABETALOL HCL 100 MG/20 ML VIAL IV PUSH PRN (10:45)
[2017-01-02] MEDS ORDERED: MISCELLANEOUS NURSING INFORMATION XX SCH (10:45)
[2017-01-02] MEDS ORDERED: RESP: ALBUTEROL 2.5 MG/IPRATROPIUM 0.5 MG NEB (PRN) INH (10:45)
[2017-01-02] MEDS ORDERED: CHLORHEXIDINE GLUCONATE 2 % 1 PACK (2 CLOTHS) TOP PRN (10:45)
[2017-01-02] MEDS ORDERED: LACTULOSE SYRUP 20 GM/30 ML CUP PO PRN (10:45)
[2017-01-02] MEDS ORDERED: niCARdipine INJ 25 MG in SODIUM CHLOR 0.9% 250 ML INJ 240 ML IV PRN (10:45)
[2017-01-02] MEDS: SODIUM CHLOR 0.9% 1000 ML INJ 1,000 ML IV SCH (11:00)
[2017-01-02 11:42] LABS: BLOOD, URINE TRACE (NEG); GLUCOSE,URINE TRACE mg/dL (NEG); HYALINE CAST, URINE 6 /lpf (RARE); KETONE, URINE TRACE mg/dL (NEG); MUCUS URINE FEW /lpf (OCC); NITRITE,URINE NEG (NEG); SQUAMOUS EPITHELIAL CELL URINE <1 /hpf (0-5); URINE COLOR YELLOW (YELLW/STRAW)
[2017-01-02] MEDS: ALTEPLASE DRIP IV ONE ×2 (11:59→12:04)
[2017-01-02 12:23] LABS: HDL CHOLESTEROL 92.5 MG/DL (40.0-60.0)
[2017-01-02] MEDS ORDERED: GADODIAMIDE PF 287 MG/ML 5 ML VIAL (for RAD MRI) IV PUSH ONE (14:08)
--- NOTE | 2017-01-02 14:40 | RADRPT ---
EXAM DATE/TIME: 01/02/2017 13:40 [facility] COMPARISON: MRI BRAIN W & W/O CONTRAST, July 26, 2015, 16:16. INDICATIONS : Stroke alert. Left facial droop. CONTRAST: 11 cc Omniscan (gadodiamide) IV MEDICAL HISTORY : Seizures. SURGICAL HISTORY : None. ENCOUNTER: Initial ACUITY: 1 day PAIN SCORE: 0/10 LOCATION: head TECHNIQUE: Multiplanar, multisequence MRI of the brain was performed both prior to and following the administrat ion of paramagnetic contrast. FINDINGS: There is minimal periventricular white matter changes evident. There is no parenchymal hemorrhage, a cute infarction or mass lesion. Ventricular size is appropriate. There are no extra-axial fluid col lections appreciated. The posterior fossa is unremarkable. There is no abnormal contrast enhancement. CONCLUSION: Negative for acute ischemic event. Car Moseley MD FACR on January 02, 2017 at 14:37 Board Certified Radiologist. This report was verified electronically.
[2017-01-02] MEDS: ACETAMINOPHEN 325 MG TAB PO PRN (15:03)
--- NOTE | 2017-01-02 16:07 | HHI.HP ---
HPI Service Critical Care Medicine Primary Care Physician Unknown Admission Diagnosis Ischemic CVA Diagnosis: Chief Complaint: Altered mental status, left sided weakness Travel History International Travel<30 Days: No Contact w/Intl Traveler <30 Da: No History of Present Illness HPI The patient's 56 years old. She arrives by EMS due to weakness in the left arm and leg and due to a facial droop on the left side. The patient was witnessed by family to tense up and a somewhat tonic fashion and then become weak on the left side as described. The family did not see any tonic-clonic seizure activity. The patient has a history of seizures. She takes Keppra. She does not take any anticoagulant. The onset of the weakness was about 30 minutes prior to ER arrival. EMS reports normal blood sugar and a relatively hypertensive at BP at about 160/80. Evidently last seizure was 6 months ago. History PFSH Past Medical History Hx Anticoagulant Therapy: No Arthritis: Yes Asthma: No Autoimmune Disease: No Anxiety: Yes (occ) Depression: No Heart Rhythm Problems: No Cancer: No Cardiovascular Problems: Yes (murmur) High Cholesterol: Yes Chemotherapy: No Chest Pain: No Congestive Heart Failure: No COPD: No Cerebrovascular Accident: No Diabetes: No Endocrine: No GERD: Yes (on pepcid) Genitourinary: No Hiatal Hernia: No Immune Disorder: No Kidney Stones: No Musculoskeletal: Yes Neurologic: Yes (pt states on keppra) Psychiatric: No Reproductive: No Respiratory: No Migraines: No Radiation Therapy: No Seizures: Yes Sickle Cell Disease: No Sleep Apnea: No Thyroid Disease: No Ulcer: Yes Past Surgical History AICD: No Arteriovenous Shunt: No Hysterectomy: No Insulin Pump: No Joint Replacement: No Pacemaker: No Other Surgery: Yes (blood clot leg) Social History Alcohol Use: Yes (6 pk beer daily) Tobacco Use: Yes (1 ppd) Substance Use: No (hx of with similar symptoms per evac today 09/20/16) Allergies-Medications Allergies-Medications (Allergen,Severity, Reaction): Coded Allergies: No Known Allergies (Unverified , 08/11/15) Reported Meds & Prescriptions Reported Meds & Active Scripts Active Senna Plus 8.6-50 mg (Sennosides-Docusate Sodium) 1 Tab Tab 1 Tab PO BID Metoprolol Tartrate 25 Mg Tab 12.5 Mg PO Q12HR Morphine IR (Morphine Sulfate) 15 Mg Tab 15 Mg PO Q6HR PRN Lactobacillus Acidophilus 1 Tab Tab 1 Tab PO TIDAC Omeprazole 20 Mg Tab 20 Mg PO DAILY Levetiracetam 1,000 Mg Tab 1,000 Mg PO BID Atorvastatin (Atorvastatin Calcium) 20 Mg Tab 20 Mg PO HS ROS Review of Systems Except as stated in HPI: all other systems reviewed are Neg General / Constitutional: No: Fever Gastrointestinal: No: Nausea, Vomiting, Diarrhea, Abdominal Pain Physical Exam Vital Signs Vital Signs Date Time Temp Pulse Resp B/P (MAP) Pulse Ox O2 Delivery O2 Flow Rate FiO2 01/02/17 14:00 76 01/02/17 12:30 01/02/17 12:25 98.4 94 25 141/87 (105) 98 01/02/17 12:25 94 01/02/17 11:13 96 Nasal Cannula 3.00 01/02/17 11:13 96 Nasal Cannula 3.00 01/02/17 11:10 90 15 166/87 (113) 96 Nasal Cannula 3.00 01/02/17 11:09 96 Nasal Cannula 2.00 01/02/17 10:55 85 14 160/93 (115) 98 Nasal Cannula 01/02/17 10:25 92 16 151/86 (107) 90 Nasal Cannula 3.00 01/02/17 10:10 100 16 149/85 (106) 93 Nasal Cannula 3.00 01/02/17 09:40 116 16 154/89 (110) 95 Nasal Cannula 3.00 01/02/17 09:35 122 15 146/86 (106) 89 Room Air 01/02/17 09:34 98.7 122 15 146/86 (106) 89 Room Air Physical Exam Narrative GENERAL: 56-year-old female pleasant well-nourished well-developed SKIN: Focused skin assessment warm/dry. HEAD: Atraumatic. Normocephalic. EYES: Pupils equal and round. No scleral icterus. No injection or drainage. ENT: No nasal bleeding or discharge. Mucous membranes pink and moist. NECK: Trachea midline. No JVD. CARDIOVASCULAR: Tachycardia. Rate about 115. Rhythm regular. RESPIRATORY: No accessory muscle use. Clear to auscultation. Breath sounds equal bilaterally. GASTROINTESTINAL: Abdomen soft, non-tender, nondistended. Hepatic and splenic margins not palpable. MUSCULOSKELETAL: No obvious deformities. No clubbing. No cyanosis. No edema. NEUROLOGICAL: Awake alert oriented 3, moving all 4 extremities, no focal weakness demonstrated at the time of my evaluation. Speech is normal. Memory mentation normal. PSYCHIATRIC: Appropriate mood and affect; insight and judgment normal. Laboratory Laboratory Tests Test 01/02/17 09:35 01/02/17 10:58 White Blood Count 12.8 Red Blood Count 4.68 Hemoglobin 14.4 Bedside Hemoglobin 15.0 Hematocrit 42.9 Bedside Hematocrit 44.0 Mean Corpuscular Volume 91.8 Mean Corpuscular Hemoglobin 30.8 Mean Corpuscular Hemoglobin Concent 33.6 Red Cell Distribution Width 13.6 Platelet Count 382 Mean Platelet Volume 7.0 Neutrophils (%) (Auto) 79.6 Lymphocytes (%) (Auto) 14.9 Monocytes (%) (Auto) 5.3 Eosinophils (%) (Auto) 0.1 Basophils (%) (Auto) 0.1 Neutrophils # (Auto) 10.2 Lymphocytes # (Auto) 1.9 Monocytes # (Auto) 0.7 Eosinophils # (Auto) 0.0 Basophils # (Auto) 0.0 CBC Comment DIFF FINAL Differential Comment Prothrombin Time 10.0 Prothromb Time International Ratio 0.9 Activated Partial Thromboplast Time 25.0 Fibrinogen 359 Bedside Sodium 131 Bedside Potassium 4.4 Bedside Chloride 98 Bedside Blood Urea Nitrogen 6 Bedside Creatinine 0.5 Bedside Glucose 203 Total Creatine Kinase 107 Troponin I LESS THAN 0.02 Triglycerides Level 148 Cholesterol Level 228 LDL Cholesterol 106 HDL Cholesterol 92.5 Cholesterol/HDL Ratio 2.46 Human Chorionic Gonadotropin, Quant 2 Urine Color YELLOW Urine Turbidity CLEAR Urine pH 6.0 Urine Specific [place] 1.034 Urine Protein 30 Urine Glucose (UA) TRACE Urine Ketones TRACE Urine Occult Blood TRACE Urine Nitrite NEG Urine Bilirubin NEG Urine Urobilinogen LESS THAN 2.0 Urine Leukocyte Esterase NEG Urine RBC 3 Urine WBC 1 Urine Squamous Epithelial Cells <1 Urine Hyaline Casts 6 Urine Mucus FEW Urine Opiates Screen POS Urine Barbiturates Screen NEG Urine Amphetamines Screen NEG Urine Benzodiazepines Screen POS Urine Cocaine Screen NEG Urine Cannabinoids Screen POS Result Diagram: 01/02/17934 Imaging Last Impressions Neck CTA 01/02/17935 Signed Impressions: Service Date/Time: Monday, January 02, 2017 09:34 - CONCLUSION: Negative for hemodynamically significant carotid stenosis. Car Moseley MD FACR Head CTA 01/02/17935 Signed Impressions: Service Date/Time: Monday, January 02, 2017 09:34 - CONCLUSION: Negative for major branch vessel occlusion. Car Moseley MD FACR Head CT 01/02/17 0000 Signed Impressions: Service Date/Time: Monday, January 02, 2017 09:34 - CONCLUSION: No acute intracranial abnormality is identified. Taco Mae MD Brain MRI 01/02/17 0000 Signed Impressions: Service Date/Time: Monday, January 02, 2017 13:40 - CONCLUSION: Negative for acute ischemic event. Car Moseley MD FACR Caprini VTE Risk Assessment Caprini VTE Risk Assessment: Mod/High Risk (score >= 2) Caprini Risk Assessment Model Point Value = 1 Point Value = 2 Point Value = 3 Point Value = 5 Age 41-60 Minor surgery BMI > 25 kg/m2 Swollen legs Varicose veins or History of unexplained or recurrent spontaneous Oral contraceptives or hormone replacement Sepsis (< 1 month) Serious lung disease, including pneumonia (< 1 month) Abnormal pulmonary function Acute myocardial infarction Congestive heart failure (< 1 month) History of inflammatory bowel disease Medical patient at bed rest Age 61-74 Arthroscopic surgery Major open surgery (> 45 min) Laparoscopic surgery (> 45 min) Malignancy Confined to bed (> 72 hours) Immobilizing plaster cast Central venous access Age >= 75 History of VTE Family history of VTE Factor V Leiden Prothrombin [id number] Lupus anticoagulant Anticardiolipin antibodies Elevated serum homocysteine Heparin-induced thrombocytopenia Other congenital or acquired thrombophilia Stroke (< 1 month) Elective arthroplasty Hip, pelvis, or leg fracture Acute spinal cord injury (< 1 month) Prophylaxis Regimen Total Risk Factor Score Risk Level Prophylaxis Regimen 0-1 Low Early ambulation 2 Moderate Order ONE of the following: *Sequential Compression Device (SCD) *Heparin 5000 units SQ BID 3-4 Higher Order ONE of the following medications: *Heparin 5000 units SQ TID *Enoxaparin/Lovenox 40 mg SQ daily (WT < 150 kg, CrCl > 30 mL/min) *Enoxaparin/Lovenox 30 mg SQ daily (WT < 150 kg, CrCl > 10-29 mL/min) *Enoxaparin/Lovenox 30 mg SQ BID (WT < 150 kg, CrCl > 30 mL/min) AND/OR *Sequential Compression Device (SCD) 5 or more Highest Order ONE of the following medications: *Heparin 5000 units SQ TID (Preferred with Epidurals) *Enoxaparin/Lovenox 40 mg SQ daily (WT < 150 kg, CrCl > 30 mL/min) *Enoxaparin/Lovenox 30 mg SQ daily (WT < 150 kg, CrCl > 10-29 mL/min) *Enoxaparin/Lovenox 30 mg SQ BID (WT < 150 kg, CrCl > 30 mL/min) AND *Sequential Compression Device (SCD) Assessment and Plan Assessment and Plan 56-year-old female with: Left-sided weakness Possible seizure versus ischemic CVA Chronic back pain on narcotics History of seizure Hypertension Hyperlipidemia History of DVT Plan: Neuro: Status post thrombolysis, has been evaluated by neurology. Keppra continued. Follow neuro status per ICU protocol. Repeat head CT tomorrow. MRI brain did not reveal any evidence of ischemia. Further recommendations including stroke workup per neurology. Antiplatelet to be initiated per neurology tomorrow following review of head CT. Continue home dose of morphine for chronic pain Cardiovascular: Labetalol when necessary to keep SBP less than 1 80 mmHg. Nicardipine drip to be used if needed. Continue statin and beta rafiq. Pulmonary: Supplemental O2 as needed. Protecting airway currently. GI/liver: Passed swallow eval. We will initiate heart healthy diet. Renal/: IV hydration, strict intake output, monitor and replete electro lites , follow BUN/creatinine. ID: No indication for antibiotics at this time. Heme: Follow CBC Endocrine: Watch for hyperglycemia, SSI for glycemic control if needed Prophylaxis: PPI/SCDs. Start subcutaneous Lovenox when okay with neurology Patient will be transferred to hospitalist service tomorrow. Critical care will be available as needed. Further recommendations per neurology. Discussed plan of care with patient who voiced understanding and was agreeable. Bal Cooley MD Jan 02, 2017 16:07
[2017-01-02] MEDS: LACTOBACILLUS ACIDOPHILUS TAB PO SCH (16:54)
[2017-01-02] MEDS: ONDANSETRON HCL 4 MG/2 ML VIAL IV PUSH PRN (16:54)
--- NOTE | 2017-01-02 17:56 | EKG ---
Date Performed: 01/02/2017 Time Performed: 10:49:45 PTAGE: 56 years EKG: Sinus rhythm NORMAL ECG PREVIOUS TRACING : 09/20/2016 09.49 DOCTOR: Catherine Montalvo Interpretating Date/Time 01/02/2017 17:55:15
[2017-01-02] MEDS: MORPHINE SULFATE 15 MG TAB PO PRN (18:14)
[2017-01-02] MEDS: DOCUSATE SODIUM 50 MG/SENNA 8.6 MG TAB PO SCH ×2 (21:00→22:54)
[2017-01-02] MEDS: ATORVASTATIN 20 MG TAB PO SCH (21:00)
[2017-01-02] MEDS: levETIRAcetam 500 MG TAB PO SCH (22:53)
[2017-01-02] MEDS: SODIUM CHLORIDE 0.9% FLUSH 10 ML FLUSH IV FLUSH SCH (22:53)
[2017-01-02] MEDS: METOPROLOL TARTRATE 25 MG TAB PO SCH (22:54)
[2017-01-03] VITALS (10 sets, daily range): BP systolic 114–149; BP diastolic 60–83; PULSE 72–100; RESP 16–30; TEMP 98.1–98.8; O2SAT 91–100
[2017-01-03] MEDS: CHLORHEXIDINE GLUCONATE 2 % 1 PACK (2 CLOTHS) TOP SCH (01:17)
[2017-01-03] MEDS: ONDANSETRON HCL 4 MG/2 ML VIAL IV PUSH PRN ×2 (05:19→17:39)
[2017-01-03] MEDS: ACETAMINOPHEN 325 MG TAB PO PRN ×2 (05:19→17:39)
[2017-01-03 05:49] LABS: BICARBONATE 24.7 MEQ/L (21.0-32.0); POTASSIUM 3.6 MEQ/L (3.5-5.1)
[2017-01-03 05:56] LABS: AUTOMATED NEUTROPHIL # 8.8 TH/MM3 (1.8-7.7); BASOPHIL % 0.1 % (0.0-2.0); HEMATOCRIT 37.9 % (35.0-46.0); HEMO FLAGS DIFF FINAL; LYMPH % 13.4 % (9.0-44.0); LYMPHOCYTE # 1.5 TH/MM3 (1.0-4.8); MEAN CELL VOLUME 91.4 FL (80.0-100.0); MEAN CORPUSCULAR HEMOGLOBIN 31.3 PG (27.0-34.0); MEAN CORPUSCULAR HGB CONC 34.3 % (32.0-36.0); MONO % 7.3 % (0.0-8.0); NEUT % 79.2 % (16.0-70.0); PLATELET COUNT 311 TH/MM3 (150-450); RED BLOOD COUNT 4.15 MIL/MM3 (4.00-5.30); RED CELL DISTRIBUTION WIDTH 13.6 % (11.6-17.2); WHITE BLOOD COUNT 11.1 TH/MM3 (4.0-11.0)
[2017-01-03] MEDS: MORPHINE SULFATE 15 MG TAB PO PRN ×3 (05:57→17:39)
[2017-01-03] MEDS: LORazepam 2 MG/ML VIAL IV PUSH PRN ×2 (05:58→08:10)
--- NOTE | 2017-01-03 06:47 | RADRPT ---
EXAM DATE/TIME: 01/03/2017 06:25 [place] COMPARISON: CT BRAIN W/O CONTRAST, January 02, 2017, 9:34. INDICATIONS : Follow up stroke; post TPA. RADIATION DOSE: 56.35 CTDIvol (mGy) MEDICAL HISTORY : Cardiovascular disease. Deep venous thrombosis. SURGICAL HISTORY : None. ENCOUNTER: Subsequent ACUITY: 1 day PAIN SCALE: 0/10 LOCATION: cranial TECHNIQUE: Multiple contiguous axial images were obtained of the head. Using automated exposure control and adj ustment of the mA and/or kV according to patient size, radiation dose was kept as low as reasonably a chievable to obtain optimal diagnostic quality images. DICOM format image data is available electro nically for review and comparison. FINDINGS: CEREBRUM: The ventricles are normal for age. No evidence of midline shift, mass lesion, hemorrhage or acute in farction. No extra-axial fluid collections are seen. POSTERIOR FOSSA: The cerebellum and brainstem are intact. The 4th ventricle is midline. The cerebellopontine angle i s unremarkable. EXTRACRANIAL: The visualized portion of the orbits is intact. SKULL: The calvaria is intact. No evidence of skull fracture. CONCLUSION: 1. No evidence of acute intracranial pathology. No masses are identified. Hua Philip MD on January 03, 2017 at 6:45 Board Certified Radiologist. This report was verified electronically.
[2017-01-03] MEDS: DOCUSATE SODIUM 50 MG/SENNA 8.6 MG TAB PO SCH ×4 (09:00→20:07)
[2017-01-03] MEDS: PANTOPRAZOLE SOD 20 MG DELAYED RELEASE TAB PO SCH (10:13)
[2017-01-03] MEDS: METOPROLOL TARTRATE 25 MG TAB PO SCH ×2 (10:13→20:01)
[2017-01-03] MEDS: levETIRAcetam 500 MG TAB PO SCH ×2 (10:15→20:01)
[2017-01-03] MEDS: SODIUM CHLORIDE 0.9% FLUSH 10 ML FLUSH IV FLUSH SCH ×2 (10:20→20:01)
[2017-01-03] MEDS: LACTOBACILLUS ACIDOPHILUS TAB PO SCH ×3 (10:20→17:00)
--- NOTE | 2017-01-03 14:43 | HHI.PR ---
Subjective Remarks Patient sleeping, wakes up for exam. Says she is feeling back to normal. Denies any chest pain or shortness of breath. Denies any nausea or vomiting. Denies any weakness. She says she has chronic back pain, would like morphine increased to home dose. Objective Vital Signs Date Time Temp Pulse Resp B/P (MAP) Pulse Ox O2 Delivery O2 Flow Rate FiO2 01/03/17 10:00 87 01/03/17 08:01 94 Nasal Cannula 2.00 01/03/17 08:00 80 01/03/17 07:00 95 Nasal Cannula 2.00 01/03/17 06:00 78 01/03/17 04:00 98.1 78 20 114/60 (78) 96 01/03/17 04:00 78 01/03/17 02:00 74 01/03/17 00:00 72 01/03/17 00:00 98.1 72 20 122/71 (88) 91 01/02/17 22:00 80 01/02/17 20:00 80 01/02/17 20:00 97.8 70 25 130/68 (88) 92 01/02/17 19:51 96 Nasal Cannula 3.00 01/02/17 19:00 92 Nasal Cannula 2.00 01/02/17 18:00 74 01/02/17 16:00 80 01/02/17 16:00 98.6 82 14 122/79 (93) 98 I/O 01/02/17 01/02/17 01/02/17 01/03/17 01/03/17 01/03/17 07:00 15:00 23:00 07:00 15:00 23:00 Intake Total 200 ml 444 ml Output Total 600 ml 650 ml Balance -400 ml -206 ml Intake Oral 200 ml 50 ml IV Total 394 ml Output Urine Total 600 ml 650 ml # Bowel Movements 0 0 Result Diagram: 01/03/1740401/03/17404 Objective Remarks GENERAL: Patient sitting up in bed. Appears comfortable. Alert and oriented 3. SKIN: Warm and dry. HEAD: Normocephalic. EYES: No scleral icterus. No injection or drainage. NECK: Supple, trachea midline. No JVD. CARDIOVASCULAR: Regular rate and rhythm without murmurs, gallops, or rubs. RESPIRATORY: Breath sounds equal bilaterally. No accessory muscle use. GASTROINTESTINAL: Abdomen soft, non-tender, nondistended. MUSCULOSKELETAL: No cyanosis, or edema. BACK: Nontender without obvious deformity. No CVA tenderness. A/P Assessment and Plan 56-year-old female with: //Possible CVA on admission //History of seizures. Presented with slurred speech, weakness. CT on admission negative. Resolved after TPA. -Also with polypharmacy, high-dose morphine, also marijuana positive on urine drug screen. Neurology assistance appreciated. Continue Keppra. Pending echocardiogram. Continue to monitor. //Chronic back pain on narcotics -Patient wants narcotics increase. She is on MSIR 60 mg in the morning, 30 mg at night. She was like morphine increased, however is sleeping on exam. We will continue on current dose. //Hypertension. Blood pressure acceptable. Continue home metoprolol. //Hyperlipidemia. Chronic. Continue home statin. //GERD. Chronic. Continue home PPI. //Marijuana abuse. Recommend complete discontinuation. Marijuana positive on urine screen. //History of DVT. Avoiding anticoagulants due to recent TPA. We'll plan on starting Lovenox tomorrow. Discharge Planning Pending echocardiogram. Pending clearance by neurology. Dmitri Juarez MD Jan 03, 2017 14:43
[2017-01-03] MEDS: SODIUM CHLOR 0.9% 1000 ML INJ 1,000 ML IV SCH ×2 (15:36)
[2017-01-03] MEDS ORDERED: ASPIRIN 325 MG TAB PO ONE (16:30)
[2017-01-03] MEDS: ATORVASTATIN 20 MG TAB PO SCH (20:01)
--- NOTE | 2017-01-03 21:56 | HHI.PR ---
Review/Management Diagnosis CVA---symptoms completely resolved after iv TPA. Tolerated TPA well with no hemorrhagic complication history of SZ--stable Plan aspirin 325 mg daily statin due to elevated LDL Keppra 1000 mg bid. Diagnosis/Plan: Subjective Subjective Comments No acute events reported Patient reports that her left side strength is back to normal. She denies any new neurologic sx. Active Medications Current Medications Medications (Trade) Dose Ordered Sig/Sonja Route Start Time Stop Time Status Last Admin (Keppra) 1,000 mg Q12HR PO 01/02/17 21:00 01/03/17 20:01 (Ativan Inj) 1 mg Q4H PRN IV PUSH 01/02/17 10:15 01/03/17 08:10 Sodium Chloride 1,000 ml @ 70 mls/hr [id number] IV 01/02/17 11:00 01/03/17 00:00 (Trandate Inj) 10 mg Q2H PRN IV PUSH 01/02/17 10:45 Nicardipine HCl 25 mg/Sodium Chloride 250 ml @ 50 mls/hr TITRATE PRN IV 01/02/17 10:45 (NS Flush) 2 ml UNSCH PRN IV FLUSH 01/02/17 10:45 (NS Flush) 2 ml BID IV FLUSH 01/02/17 21:00 01/03/17 20:01 (Tylenol) 650 mg Q6H PRN PO 01/02/17 10:45 01/03/17 17:39 (Zofran Inj) 4 mg Q6H PRN IV PUSH 01/02/17 10:45 01/03/17 17:39 (Duoneb Neb) 1 ampule Q4HR NEB PRN INH 01/02/17 10:45 Miscellaneous Information 1 [id number] XX 01/02/17 10:45 (Chlorhexidine 2% Cloth) 3 pack Taper DAILY@04 TOP 01/03/17 04:00 12/30/17 03:59 01/03/17 01:17 (Chlorhexidine 2% Cloth) 3 pack UNSCH PRN TOP 01/02/17 10:45 (Eileen-Colace) 1 tab BID PO 01/02/17 21:00 01/02/17 22:54 (Milk Of Magnesia Liq) 30 ml Q12H PRN PO 01/02/17 10:45 (Senokot) 17.2 mg Q12H PRN PO 01/02/17 10:45 (Dulcolax Supp) 10 mg DAILY PRN RECTAL 01/02/17 10:45 (Lactulose Liq) 30 ml DAILY PRN PO 01/02/17 10:45 (Lipitor) 20 mg HS PO 01/02/17 21:00 01/03/17 20:01 (Lactinex) 1 tab TIDAC PO 01/02/17 17:00 01/03/17 10:20 (Lopressor) 12.5 mg Q12HR PO 01/02/17 21:00 01/03/17 20:01 (Msir) 15 mg Q6HR PRN PO 01/02/17 15:45 01/03/17 17:39 (Eileen-Colace) 1 tab BID PO 01/02/17 21:00 (Protonix) 20 mg DAILY PO 01/03/17 09:00 01/03/17 10:13 (Aspirin) 325 mg DAILY PO 01/04/17 09:00 Allergies Allergies Coded Allergies No Known Allergies (Unverified08/11/15) Review of Systems All other ROS: ROS reviewed as documented in chart Exam I&O / VS 01/03/17 01/03/17 01/04/17 15:00 23:00 07:00 Intake Total 1200 ml Output Total 1600 ml Balance -400 ml Intake Oral 600 ml IV Total 600 ml Output Urine Total 1600 ml # Bowel Movements 1 Vital Signs Date Time Temp Pulse Resp B/P (MAP) Pulse Ox O2 Delivery O2 Flow Rate FiO2 01/03/17 20:25 21 01/03/17 19:00 100 Room Air 01/03/17 18:39 20 01/03/17 16:00 98.2 81 27 145/83 (103) 92 01/03/17 13:16 20 01/03/17 12:00 98.6 88 20 149/79 (102) 96 01/03/17 12:00 88 01/03/17 10:00 87 01/03/17 08:01 94 Nasal Cannula 2.00 01/03/17 08:00 80 01/03/17 08:00 98.7 86 30 135/81 (99) 96 01/03/17 07:00 95 Nasal Cannula 2.00 01/03/17 06:00 78 01/03/17 04:00 98.1 78 20 114/60 (78) 96 01/03/17 04:00 78 01/03/17 02:00 74 01/03/17 00:00 72 01/03/17 00:00 98.1 72 20 122/71 (88) 91 01/02/17 22:00 80 Respiratory: Lungs CTA, Non-labored respirations, BS equal Cardiology: Normal rate, Intact pulses, Regular Rhythm Musculoskeletal: ROM, Swelling Exam Comments alert, oriented X3 Speech normal with normal fluency and normal comprehension CN 2-12 normal in detail MOTOR 5/5 BUE and BLE. No drift , normal fine motor SENSORY--normal cerebellar--normal with no dysmetria Objective Radiology Results CT brain 24 hours after TPA---normal MRI brain normal Micro and Labs Laboratory Tests Test 01/03/17 04:05 White Blood Count 11.1 Red Blood Count 4.15 Hemoglobin 13.0 Hematocrit 37.9 Mean Corpuscular Volume 91.4 Mean Corpuscular Hemoglobin 31.3 Mean Corpuscular Hemoglobin Concent 34.3 Red Cell Distribution Width 13.6 Platelet Count 311 Mean Platelet Volume 7.4 Neutrophils (%) (Auto) 79.2 Lymphocytes (%) (Auto) 13.4 Monocytes (%) (Auto) 7.3 Eosinophils (%) (Auto) 0.0 Basophils (%) (Auto) 0.1 Neutrophils # (Auto) 8.8 Lymphocytes # (Auto) 1.5 Monocytes # (Auto) 0.8 Eosinophils # (Auto) 0.0 Basophils # (Auto) 0.0 CBC Comment DIFF FINAL Differential Comment Blood Urea Nitrogen 6 Creatinine 0.49 Random Glucose 77 Calcium Level 8.3 Sodium Level 132 Potassium Level 3.6 Chloride Level 98 Carbon Dioxide Level 24.7 Anion Gap 9 Estimat Glomerular Filtration Rate 130 Diagnostic Tests CTA neck normal Lester Hernandez PhD MD Jan 03, 2017 21:56
[2017-01-04] VITALS: BP 136/81; PULSE 90; RESP 17; TEMP 98.4; O2SAT 95
[2017-01-04] MEDS: MORPHINE SULFATE 15 MG TAB PO PRN ×2 (01:03→09:06)
[2017-01-04] MEDS: CHLORHEXIDINE GLUCONATE 2 % 1 PACK (2 CLOTHS) TOP SCH (03:25)
[2017-01-04 04:00] VITALS: BP 120/79; PULSE 78; RESP 18; TEMP 98.4; O2SAT 100
[2017-01-04] MEDS: SODIUM CHLOR 0.9% 1000 ML INJ 1,000 ML IV SCH (05:54)
[2017-01-04 08:00] VITALS: BP 148/81; PULSE 91; RESP 18; TEMP 98.2; O2SAT 96
[2017-01-04] MEDS ORDERED: ASPIRIN 325 MG TAB PO SCH (09:00)
[2017-01-04] MEDS: METOPROLOL TARTRATE 25 MG TAB PO SCH (09:00)
[2017-01-04] MEDS: SODIUM CHLORIDE 0.9% FLUSH 10 ML FLUSH IV FLUSH SCH (09:00)
[2017-01-04] MEDS: DOCUSATE SODIUM 50 MG/SENNA 8.6 MG TAB PO SCH ×2 (09:00→09:03)
[2017-01-04] MEDS: LACTOBACILLUS ACIDOPHILUS TAB PO SCH ×2 (09:03→12:00)
[2017-01-04] MEDS: PANTOPRAZOLE SOD 20 MG DELAYED RELEASE TAB PO SCH (09:03)
[2017-01-04] MEDS: levETIRAcetam 500 MG TAB PO SCH (09:04)
[2017-01-04 12:00] VITALS: BP 160/83; PULSE 68; RESP 18; TEMP 98.3; O2SAT 95
--- NOTE | 2017-01-04 15:03 | ECHRPT ---
Indication: CVA/TIA CONCLUSIONS Normal left ventricular size. Wall thickness is normal. The left ventricular systolic function is hyperdynamic with an estimated ejection fraction in the ra nge of 65- 70%. No significant valvulopathies No intracardiac shunt No pericardial effusion No thrombus or massess identified BP: 114 / 60 HR: Rhythm: Sinus MEASUREMENTS (Male / Female) Normal Values Technical Quality:Fair 2D ECHO LV Diastolic Diameter PLAX 4.4 cm 4.2 - 5.9 / 3.9 - 5.3 cm LV Systolic Diameter PLAX 2.9 cm IVS Diastolic Thickness 0.8 cm 0.6 - 1.0 / 0.6 - 0.9 cm LVPW Diastolic Thickness 0.8 cm 0.6 - 1.0 / 0.6 - 0.9 cm LV Relative Wall Thickness 0.4 LVOT Diameter 2.1 cm Aortic Root Diameter 2.5 cm LA Systolic Diameter LX 2.8 cm 3.0 - 4.0 / 2.7 - 3.8 cm M-MODE AV Cusp Separation MM 1.8 cm DOPPLER AV Peak Velocity 179.0 cm/s AV Peak Gradient 12.8 mmHg AV Mean Gradient 7.0 mmHg AV Velocity Time Integral 32.2 cm LVOT Peak Velocity 173.0 cm/s LVOT Peak Gradient 12.0 mmHg LVOT Velocity Time Integral 33.9 cm AV Area Cont Eq vti 3.6 cm AV Area Cont Eq pk 3.3 cm Mitral E Point Velocity 87.4 cm/s Mitral A Point Velocity 66.1 cm/s Mitral E to A Ratio 1.3 LV E' Lateral Velocity 10.4 cm/s Mitral E to LV E' Lateral Ratio 8.4 LV E' Septal Velocity 7.3 cm/s Mitral E to LV E' Septal Ratio 12.0 FINDINGS LEFT VENTRICLE Normal left ventricular size. Wall thickness is normal. The left ventricular systolic function is hyperdynamic with an estimated ejection fraction in the ra nge of 65- 70%. RIGHT VENTRICLE Normal right ventricular size and systolic function. LEFT ATRIUM The left atrial size is normal. RIGHT ATRIUM The right atrial size is normal. ATRIAL SEPTUM Normal atrial septal thickness without atrial level shunting by limited color doppler interrogation. AORTA The aortic root and proximal ascending aorta are normal in size on limited imaging. MITRAL VALVE Structurally normal mitral valve. No mitral valve stenosis or regurgitation. AORTIC VALVE Trileaflet aortic valve. No aortic valve stenosis or regurgitation. TRICUSPID VALVE Structurally normal tricuspid valve. No tricuspid valve stenosis or regurgitation. PULMONARY VALVE The pulmonary valve is not well visualized. VESSELS The inferior vena cava is normal in size. PERICARDIUM No pericardial effusion. Luc Ordonez MD (Electronically Signed) Final Date:04 January 2017 15:02
[2017-01-04] MEDS ORDERED: ASPI81TA23 PO (15:11)
--- NOTE | 2017-01-04 16:14 | HHI.DS ---
Discharge Summary Admission Date Jan 02, 2017 at 10:40 Discharge Date: Jan 04, 2017 Admitting Diagnosis Ischemic CVA (1) Polypharmacy ICD Code: Z79.899 - Other termite renewal inspector (current) drug therapy (2) Ischemic stroke ICD Code: I63.9 - Cerebral infarction, unspecified Status: Acute Procedures TPA infusion. Otherwise, no invasive procedures. Brief History - From Admission HPI The patient's 56 years old. She arrives by EMS due to weakness in the left arm and leg and due to a facial droop on the left side. The patient was witnessed by family to tense up and a somewhat tonic fashion and then become weak on the left side as described. The family did not see any tonic-clonic seizure activity. The patient has a history of seizures. She takes Keppra. She does not take any anticoagulant. The onset of the weakness was about 30 minutes prior to ER arrival. EMS reports normal blood sugar and a relatively hypertensive at BP at about 160/80. Evidently last seizure was 6 months ago. History PFSH Past Medical History Hx Anticoagulant Therapy: No Arthritis: Yes Asthma: No Autoimmune Disease: No Anxiety: Yes (occ) Depression: No Heart Rhythm Problems: No Cancer: No Cardiovascular Problems: Yes (murmur) High Cholesterol: Yes Chemotherapy: No Chest Pain: No Congestive Heart Failure: No COPD: No Cerebrovascular Accident: No Diabetes: No Endocrine: No GERD: Yes (on pepcid) Genitourinary: No Hiatal Hernia: No Immune Disorder: No Kidney Stones: No Musculoskeletal: Yes Neurologic: Yes (pt states on keppra) Psychiatric: No Reproductive: No Respiratory: No Migraines: No Radiation Therapy: No Seizures: Yes Sickle Cell Disease: No Sleep Apnea: No Thyroid Disease: No Ulcer: Yes Past Surgical History AICD: No Arteriovenous Shunt: No Hysterectomy: No Insulin Pump: No Joint Replacement: No Pacemaker: No Other Surgery: Yes (blood clot leg) Social History Alcohol Use: Yes (6 pk beer daily) Tobacco Use: Yes (1 ppd) Substance Use: No (hx of with similar symptoms per evac today 09/20/16) Allergies-Medications Allergies-Medications (Allergen,Severity, Reaction): Coded Allergies: No Known Allergies (Unverified , 08/11/15) Reported Meds & Prescriptions Reported Meds & Active Scripts Active Senna Plus 8.6-50 mg (Sennosides-Docusate Sodium) 1 Tab Tab 1 Tab PO BID Metoprolol Tartrate 25 Mg Tab 12.5 Mg PO Q12HR Morphine IR (Morphine Sulfate) 15 Mg Tab 15 Mg PO Q6HR PRN Lactobacillus Acidophilus 1 Tab Tab 1 Tab PO TIDAC Omeprazole 20 Mg Tab 20 Mg PO DAILY Levetiracetam 1,000 Mg Tab 1,000 Mg PO BID Atorvastatin (Atorvastatin Calcium) 20 Mg Tab 20 Mg PO HS ROS Review of Systems Except as stated in HPI: all other systems reviewed are Neg General / Constitutional: No: Fever Gastrointestinal: No: Nausea, Vomiting, Diarrhea, Abdominal Pain CBC/BMP: 01/03/17 0405 01/03/17 0405 Significant Findings Laboratory Tests Test 01/02/17 09:35 01/02/17 10:58 01/03/17 04:05 01/04/17 15:31 White Blood Count 12.8 TH/MM3 (4.0-11.0) 11.1 TH/MM3 (4.0-11.0) Neutrophils (%) (Auto) 79.6 % (16.0-70.0) 79.2 % (16.0-70.0) Neutrophils # (Auto) 10.2 TH/MM3 (1.8-7.7) 8.8 TH/MM3 (1.8-7.7) Bedside Sodium 131 MMOL/L (138-146) Bedside Blood Urea Nitrogen 6 MG/DL (8-26) Bedside Creatinine 0.5 MG/DL (0.6-1.0) Bedside Glucose 203 MG/DL (60-95) Troponin I LESS THAN 0.02 NG/ML Cholesterol Level 228 MG/DL (120-200) LDL Cholesterol 106 MG/DL (0-99) HDL Cholesterol 92.5 MG/DL (40.0-60.0) Urine Protein 30 mg/dL (NEG-TRACE) Urine Ketones TRACE mg/dL (NEG) Urine Occult Blood TRACE (NEG) Urine Mucus FEW /lpf (OCC) Urine Opiates Screen POS (NEG) Urine Benzodiazepines Screen POS (NEG) Urine Cannabinoids Screen POS (NEG) Blood Urea Nitrogen 6 MG/DL (7-18) Creatinine 0.49 MG/DL (0.50-1.00) Calcium Level 8.3 MG/DL (8.5-10.1) Sodium Level 132 MEQ/L (136-145) Imaging Last Impressions Head CT 01/03/17 1000 Signed Impressions: Service Date/Time: Tuesday, January 03, 2017 06:25 - CONCLUSION: 1. No evidence of acute intracranial pathology. No masses are identified. Hua Philip MD Neck CTA 01/02/17 0936 Signed Impressions: Service Date/Time: Monday, January 02, 2017 09:34 - CONCLUSION: Negative for hemodynamically significant carotid stenosis. Car Moseley MD FACR Head CTA 01/02/17 0936 Signed Impressions: Service Date/Time: Monday, January 02, 2017 09:34 - CONCLUSION: Negative for major branch vessel occlusion. Car Moseley MD FACR Brain MRI 01/02/17 0000 Signed Impressions: Service Date/Time: Monday, January 02, 2017 13:40 - CONCLUSION: Negative for acute ischemic event. Car Moseley MD FACR PE at Discharge GENERAL: I sitting up in bed. Appears comfortable. Alert and oriented 3. SKIN: Warm and dry. HEAD: Normocephalic. EYES: No scleral icterus. No injection or drainage. NECK: Supple, trachea midline. No JVD. CARDIOVASCULAR: Regular rate and rhythm without murmurs, gallops, or rubs. RESPIRATORY: Breath sounds equal bilaterally. No accessory muscle use. GASTROINTESTINAL: Abdomen soft, non-tender, nondistended. MUSCULOSKELETAL: No cyanosis, or edema. BACK: Nontender without obvious deformity. No CVA tenderness. Hospital Course Patient was given TPA infusion with Adore of her symptoms. CT, MRI imaging of brain negative for acute findings. Echocardiogram negative for thrombus. Neurology was consulted and patient was started on aspirin. Drug screen positive for marijuana and patient was counseled against marijuana use. Patient also on narcotics at home, and patient was counseled on decreasing use. She is also on temazepam, was counseled to discontinue. Patient conveys understanding. She'll follow-up with neurology in 2 weeks. 56-year-old female with: //Possible CVA on admission //History of seizures. Presented with slurred speech, weakness. CT on admission negative. Resolved after TPA. -Also with polypharmacy, high-dose morphine, also marijuana positive on urine drug screen. -Neurology assistance appreciated. Continue Keppra. Pending echocardiogram. Continue to monitor. = Echocardiogram negative for thrombus. Discussed with neurology. Will discharge on aspirin. Follow-up with neurology in 2 weeks. //Chronic back pain on narcotics -Patient wants narcotics increase. She is on MSIR 60 mg in the morning, 30 mg at night. She was like morphine increased, however is sleeping on exam. We will continue on current dose. -Have advised patient to discontinue twice daily morphine. She refuses. She will however discontinue temazepam. //Hypertension. Blood pressure acceptable. Continue home metoprolol. //Hyperlipidemia. Chronic. Continue home statin. //GERD. Chronic. Continue home PPI. //Marijuana abuse. Recommend complete discontinuation. Marijuana positive on urine screen. //History of DVT. Avoiding anticoagulants due to recent TPA. Patient was discharged home Pt Condition on Discharge: Good Discharge Disposition: Discharge Home Discharge Time: > 30 minutes Discharge Instructions DIET: Follow Instructions for: As Tolerated, No Restrictions Activities you can perform: Regular-No Restrictions Follow up Referrals: Neurology - 2 Weeks with Lester Hernandez PhD PCP Follow-up - 1 Week New Medications: Aspirin DR (Aspirin EC) 81 Mg Tabdr 81 MG PO DAILY for prevent stroke for 30 Days, #30 TAB 0 Refills Continued Medications: Atorvastatin (Atorvastatin) 20 Mg Tab 20 MG PO HS for Cholesterol Management, #30 TAB 0 Refills Lactobacillus Acidophilus (Lactobacillus Acidophilus) 1 Tab Tab 1 TAB PO TIDAC for Nutritional Supplement, #21 TAB 0 Refills Levetiracetam (Levetiracetam) 1,000 Mg Tab 1000 MG PO BID for Control Seizures, #60 TAB 0 Refills Metoprolol Tartrate (Metoprolol Tartrate) 25 Mg Tab 12.5 MG PO Q12HR, #30 TAB Morphine IR (Morphine IR) 15 Mg Tab 15 MG PO Q6HR PRN for Pain 4 to 10, #60 TAB Omeprazole (Omeprazole) 20 Mg Tab 20 MG PO DAILY, #30 TAB 0 Refills Sennosides-Docusate Sodium (Senna Plus 8.6-50 mg) 1 Tab Tab 1 TAB PO BID for Constipation, #60 TAB Dmitri Juarez MD Jan 04, 2017 16:14
[2017-01-04 16:17] LABS: AUTOMATED NEUTROPHIL # 7.4 TH/MM3 (1.8-7.7); BASOPHIL % 0.2 % (0.0-2.0); HEMATOCRIT 39.5 % (35.0-46.0); HEMO FLAGS DIFF FINAL; LYMPH % 20.4 % (9.0-44.0); LYMPHOCYTE # 2.1 TH/MM3 (1.0-4.8); MEAN CELL VOLUME 90.1 FL (80.0-100.0); MEAN CORPUSCULAR HEMOGLOBIN 31.7 PG (27.0-34.0); MEAN CORPUSCULAR HGB CONC 35.2 % (32.0-36.0); MONO % 8.9 % (0.0-8.0); NEUT % 70.5 % (16.0-70.0); PLATELET COUNT 314 TH/MM3 (150-450); RED BLOOD COUNT 4.39 MIL/MM3 (4.00-5.30); RED CELL DISTRIBUTION WIDTH 13.2 % (11.6-17.2); WHITE BLOOD COUNT 10.5 TH/MM3 (4.0-11.0)
[2017-01-04 16:23] LABS: ALT (GPT) 21 U/L (10-53); ANION GAP 12 MEQ/L (5-15); AST (GOT) 27 U/L (15-37); BICARBONATE 24.1 MEQ/L (21.0-32.0); BLOOD UREA NITROGEN 7 MG/DL (7-18); CHLORIDE 92 MEQ/L (98-107); GLOMERULAR FILTRATION RATE 92 ML/MIN (>89); POTASSIUM 3.2 MEQ/L (3.5-5.1); SODIUM (NA) 128 MEQ/L (136-145)
[2017-01-04 16:26] LABS: ALKALINE PHOSPHATASE 91 U/L (45-117); TOTAL BILIRUBIN ADULT 0.5 MG/DL (0.2-1.0)
== END 2017-01-04 16:22 | disposition home or self-care (01) | DRG 62 ==
LOC: NEPE 09:31 → NEDA 10:40 → N03B 12:23 → N03A 19:57 → N05B 01-04 06:26
PROVIDERS: ADMIT Internal Medicine; ATTEND Internal Medicine
DX: I63.9 Cerebral infarction, unspecified (principal); G81.94 Hemiplegia, unspecified affecting left nondominant side; I10 Essential (primary) hypertension; R29.810 Facial weakness; M19.90 Unspecified osteoarthritis, unspecified site; K21.9 Gastro-esophageal reflux disease without esophagitis; G89.29 Other chronic pain; M54.9 Dorsalgia, unspecified; E78.5 Hyperlipidemia, unspecified; G40.909 Epilepsy, unspecified, not intractable, without status epilepticus; R47.81 Slurred speech; F12.10 Cannabis abuse, uncomplicated; F41.9 Anxiety disorder, unspecified; Z72.0 Tobacco use; Z86.718 Personal history of other venous thrombosis and embolism
CPT/HCPCS: 70450; 70496; 70498; 70553; 80048; 80053; 80061; 80307; 81001; 82435; 82550; 82565; 82947; 82948; 84132; 84295; 84484; 84520; 84702; 85025; 85384; 85610; 85730; 86850; 86900; 86901; 93005; 93306; 96361; 96374; 96375; A9579; J2060; J2405; J2550; J2997; J7030

== ENCOUNTER 2017-02-08 11:20 | Emergency (ER) | payer MEDICARE, BC ==
[~2017-02-08] VITALS: Ht 172.7 cm; Wt 56.0 kg
[~2017-02-08 11:20] MED LIST changes: +ASPI81TA23 PO; -CEFU1TAB20 PO
[2017-02-08 11:21] VITALS: BP 124/89; PULSE 123; RESP 18; TEMP 98.6; O2SAT 100
[2017-02-08] MEDS ORDERED: LEVE500 PO (11:36)
[2017-02-08] MEDS ORDERED: KEPP10002 PO (11:36)
[2017-02-08] MEDS ORDERED: SODIUM CHLORIDE 0.9% FLUSH 10 ML FLUSH IV FLUSH PRN (12:00)
[2017-02-08] MEDS ORDERED: ONDANSETRON HCL 4 MG/2 ML VIAL IVP ONE (12:00)
[2017-02-08] MEDS ORDERED: FAMOTIDINE 20 MG/2 ML VIAL IV PUSH ONE (12:00)
[2017-02-08] MEDS ORDERED: SODIUM CHLOR 0.9% 1000 ML INJ 1,000 ML IV SCH (12:00)
--- NOTE | 2017-02-08 12:06 | PD ---
HPI Chief Complaint: GI Complaint Time Seen by Provider: 11:53 Travel History International Travel<30 days: No Contact w/Intl Traveler<30days: No Traveled to known affect area: No History of Present Illness HPI 56-year-old female complaining of nausea vomiting diarrhea for the past 2 weeks. Patient states that the symptoms are intermittent. Patient denies any headache. Patient denies any chest pain or shortness of breath. Patient denies abdominal pain. Patient denies any dysuria or frequency. Patient denies any fever chills. She has history of CVA, seizure, chronic back pain on narcotics, hypertension, hyperlipidemia, GERD. Patient has history substance abuse in the past including marijuana. Patient denies any blood or mucus in the stool. PFSH Past Medical History Hx Anticoagulant Therapy: No Arthritis: Yes Asthma: No Autoimmune Disease: No Anxiety: Yes (occ) Depression: No Heart Rhythm Problems: No Cancer: No Cardiovascular Problems: Yes (murmur) High Cholesterol: Yes Chemotherapy: No Chest Pain: No Congestive Heart Failure: No COPD: No Cerebrovascular Accident: No Diabetes: No Endocrine: No GERD: Yes (on pepcid) Genitourinary: No Hiatal Hernia: No Immune Disorder: No Kidney Stones: No Musculoskeletal: Yes Neurologic: Yes (pt states on keppra) Psychiatric: No Reproductive: No Respiratory: No Migraines: No Radiation Therapy: No Seizures: Yes Sickle Cell Disease: No Sleep Apnea: No Thyroid Disease: No Ulcer: Yes ?: Not Past Surgical History AICD: No Arteriovenous Shunt: No Hysterectomy: No Insulin Pump: No Joint Replacement: No Pacemaker: No Other Surgery: Yes (blood clot leg) Social History Alcohol Use: Yes (6 pk beer daily) Tobacco Use: Yes (1 ppd) Substance Use: No (hx of with similar symptoms per evac today 09/20/16) Allergies-Medications (Allergen,Severity, Reaction): Coded Allergies: No Known Allergies (Unverified Adverse Reaction, Unknown, 02/08/17) Reported Meds & Prescriptions Reported Meds & Active Scripts Active Aspirin EC (Aspirin) 81 Mg Tabdr 81 Mg PO DAILY 30 Days Senna Plus 8.6-50 mg (Sennosides-Docusate Sodium) 1 Tab Tab 1 Tab PO BID Metoprolol Tartrate 25 Mg Tab 12.5 Mg PO Q12HR Morphine IR (Morphine Sulfate) 15 Mg Tab 15 Mg PO Q6HR PRN Omeprazole 20 Mg Tab 20 Mg PO DAILY Atorvastatin (Atorvastatin Calcium) 20 Mg Tab 20 Mg PO HS Reported Keppra (Levetiracetam) 500 Mg Tab 500 Mg PO HS Keppra (Levetiracetam) 1,000 Mg Tab 1,000 Mg PO DAILY Review of Systems General / Constitutional: No: Fever Eyes: No: Visual changes HENT: No: Headaches Cardiovascular: No: Chest Pain or Discomfort Respiratory: No: Shortness of Breath Gastrointestinal: Positive: Nausea, Vomiting, Diarrhea, No: Abdominal Pain Genitourinary: No: Dysuria Musculoskeletal: No: Pain Skin: No Rash Neurologic: No: Weakness Psychiatric: No: Depression Endocrine: No: Polydipsia Hematologic/Lymphatic: No: Easy Bruising Physical Exam Narrative GENERAL: Well-nourished, well-developed patient. SKIN: Focused skin assessment warm/dry. HEAD: Normocephalic. EYES: No scleral icterus. No injection or drainage. NECK: Supple, trachea midline. No JVD or lymphadenopathy. CARDIOVASCULAR: Regular rate and rhythm without murmurs, gallops, or rubs. RESPIRATORY: Breath sounds equal bilaterally. No accessory muscle use. GASTROINTESTINAL: Abdomen soft, non-tender, nondistended. MUSCULOSKELETAL: No cyanosis, or edema. BACK: Nontender without obvious deformity. No CVA tenderness. Neurologic exam normal. Data Data Last Documented VS Vital Signs Date Time Temp Pulse Resp B/P (MAP) Pulse Ox O2 Delivery O2 Flow Rate FiO2 02/08/17 12:09 98 02/08/17 11:21 98.6 123 18 Orders Orders Complete Blood Count With Diff (02/08/17 12:00) Comprehensive Metabolic Panel (02/08/17 12:00) Lipase (02/08/17 12:00) Urinalysis - C+S If Indicated (02/08/17 12:00) Iv Access Insert/Monitor (02/08/17 12:00) Ecg Monitoring (02/08/17 12:00) Oximetry (02/08/17 12:00) Ondansetron Inj (Zofran Inj) (02/08/17 12:00) Sodium Chlor 0.9% 1000 Ml Inj (Ns 1000 M (02/08/17 12:00) Sodium Chloride 0.9% Flush (Ns Flush) (02/08/17 12:00) Famotidine Inj (Pepcid Inj) (02/08/17 12:00) Acetaminophen (Tylenol) (02/08/17 12:45) Labs Laboratory Tests Test 02/08/17 12:00 White Blood Count 7.4 TH/MM3 Red Blood Count 4.83 MIL/MM3 Hemoglobin 14.8 GM/DL Hematocrit 42.5 % Mean Corpuscular Volume 87.9 FL Mean Corpuscular Hemoglobin 30.6 PG Mean Corpuscular Hemoglobin Concent 34.8 % Red Cell Distribution Width 13.5 % Platelet Count 317 TH/MM3 Mean Platelet Volume 6.7 FL Neutrophils (%) (Auto) 58.2 % Lymphocytes (%) (Auto) 34.0 % Monocytes (%) (Auto) 7.3 % Eosinophils (%) (Auto) 0.3 % Basophils (%) (Auto) 0.2 % Neutrophils # (Auto) 4.3 TH/MM3 Lymphocytes # (Auto) 2.5 TH/MM3 Monocytes # (Auto) 0.5 TH/MM3 Eosinophils # (Auto) 0.0 TH/MM3 Basophils # (Auto) 0.0 TH/MM3 CBC Comment DIFF FINAL Differential Comment Blood Urea Nitrogen 5 MG/DL Creatinine 0.60 MG/DL Random Glucose 94 MG/DL Total Protein 7.9 GM/DL Albumin 3.8 GM/DL Calcium Level 8.6 MG/DL Alkaline Phosphatase 95 U/L Aspartate Amino Transf (AST/SGOT) 43 U/L Alanine Aminotransferase (ALT/SGPT) 21 U/L Total Bilirubin 0.4 MG/DL Sodium Level 130 MEQ/L Potassium Level 3.8 MEQ/L Chloride Level 98 MEQ/L Carbon Dioxide Level 23.2 MEQ/L Anion Gap 9 MEQ/L Estimat Glomerular Filtration Rate 103 ML/MIN Lipase 258 U/L [facility] Medical Decision Making Medical Screen Exam Complete: Yes Emergency Medical Condition: Yes Interpretation(s) 1344 PM. CBC within normal limits. Sodium 130. CMP otherwise within normal limit. Differential Diagnosis Differential diagnosis including gastroenteritis, dehydration, lack to light imbalance, bowel obstruction. Narrative Course 56-year-old female persistent nausea vomiting diarrhea for the past 2 weeks. Normal saline solution 1 L IV bolus. Zofran 4 mg IV. Diagnosis Primary Impression: Gastroenteritis Additional Impression: Hyponatremia Patient Instructions: General Instructions Additional Instructions: Increased fluid by mouth. Zofran as needed for nausea vomiting. Follow-up with personal physician. [id number] Imodium as needed for diarrhea. Return if persistent problem or worse. Med/Other Pt SpecificInfo: Prescription(s) given Scripts Ondansetron Odt (Zofran Odt) 4 Mg Tab 4 MG SL Q6HR Y for Nausea/Vomiting, #12 TAB 0 Refills Prov: Odin Nicholson MD 02/08/17 Disposition: 01 DISCHARGE HOME Condition: Stable Odin Nicholson MD Feb 08, 2017 12:06
[2017-02-08 12:09] VITALS: O2SAT 98
[2017-02-08 12:27] LABS: AUTOMATED NEUTROPHIL # 4.3 TH/MM3 (1.8-7.7); BASOPHIL % 0.2 % (0.0-2.0); EOSINOPHIL % 0.3 % (0.0-4.0); HEMATOCRIT 42.5 % (35.0-46.0); HEMOGLOBIN 14.8 GM/DL (11.6-15.3); LYMPHOCYTE # 2.5 TH/MM3 (1.0-4.8); MEAN CELL VOLUME 87.9 FL (80.0-100.0); MEAN CORPUSCULAR HEMOGLOBIN 30.6 PG (27.0-34.0); MEAN CORPUSCULAR HGB CONC 34.8 % (32.0-36.0); MEAN PLATELET VOLUME 6.7 FL (7.0-11.0); MONO % 7.3 % (0.0-8.0); MONOCYTE # 0.5 TH/MM3 (0-0.9); NEUT % 58.2 % (16.0-70.0); PLATELET COUNT 317 TH/MM3 (150-450); RED BLOOD COUNT 4.83 MIL/MM3 (4.00-5.30); RED CELL DISTRIBUTION WIDTH 13.5 % (11.6-17.2); WHITE BLOOD COUNT 7.4 TH/MM3 (4.0-11.0)
[2017-02-08] MEDS ORDERED: ACETAMINOPHEN 325 MG TAB PO ONE (12:45)
[2017-02-08 12:51] LABS: ALBUMIN 3.8 GM/DL (3.4-5.0); AST (GOT) 43 U/L (15-37); BICARBONATE 23.2 MEQ/L (21.0-32.0); BLOOD UREA NITROGEN 5 MG/DL (7-18); CALCIUM 8.6 MG/DL (8.5-10.1); CHLORIDE 98 MEQ/L (98-107); GLOMERULAR FILTRATION RATE 103 ML/MIN (>89); GLUCOSE,RANDOM 94 MG/DL (74-106); LIPASE 258 U/L (73-393); SODIUM (NA) 130 MEQ/L (136-145)
[2017-02-08 12:52] LABS: ALT (GPT) 21 U/L (10-53)
[2017-02-08 12:54] LABS: ALKALINE PHOSPHATASE 95 U/L (45-117); TOTAL BILIRUBIN ADULT 0.4 MG/DL (0.2-1.0); TOTAL PROTEIN 7.9 GM/DL (6.4-8.2)
[2017-02-08] MEDS ORDERED: ZOFR4TAB3 SL (13:46)
== END 2017-02-08 14:02 | disposition home or self-care (01) ==
LOC: NEPD 11:20
DX: K52.9 Noninfective gastroenteritis and colitis, unspecified (principal); E87.1 Hypo-osmolality and hyponatremia; R56.9 Unspecified convulsions; K21.9 Gastro-esophageal reflux disease without esophagitis; F41.9 Anxiety disorder, unspecified; F17.200 Nicotine dependence, unspecified, uncomplicated; Z79.899 Other long term (current) drug therapy
CPT/HCPCS: 80053; 83690; 85025; 96361; 96374; 96375; 99284; J2405; J7030